=== PATIENT | male | born 1950 | race African-American/Black ===

== ENCOUNTER 2020-05-23 02:51 | Inpatient (IN) | payer MEDICARE, OTHER ==
[~2020-05-23] VITALS: Ht 177.8 cm; Wt 76.2 kg
[2020-05-23] VITALS (20 sets, daily range): BP systolic 93–162; BP diastolic 64–94
[2020-05-23] MEDS ORDERED: dexAMETHasone 10mg/ml Inj IV ONE (03:00)
[2020-05-23] MEDS ORDERED: Omnipaque 350 100ml vial INJ PRN ×2 (03:00→14:30)
[2020-05-23] MEDS ORDERED: cefTRIAXone 1 GM in NS 55 ML IVPB ONE (03:00)
[2020-05-23 03:42] LABS: BASOPHILS % (AUTO) 2.8 % (0.0-2.0); EOSINOPHILS % (AUTO) 4.7 % (0.0-3.0); HEMATOCRIT 44.1 % (42.0-52.0); HEMOGLOBIN 13.6 G/DL (14.2-18.0); LYMPHOCYTES % (AUTO) 34.1 % (20.0-45.0); MEAN CORPUSCULAR VOLUME 94 FL (80-99); MONOCYTES % (AUTO) 11.6 % (1.0-10.0); NEUTROPHILS % (AUTO) 46.8 % (45.0-75.0); PLATELET COUNT 134 K/UL (150-450); RED BLOOD COUNT 4.67 M/UL (4.70-6.10); RED CELL DISTRIBUTION WIDTH 14.5 % (11.6-14.8); WHITE BLOOD COUNT 7.1 K/UL (4.8-10.8)
[2020-05-23 03:54] LABS: INR 1.1 (0.9-1.1)
[2020-05-23 03:57] LABS: ANION GAP 8 mmol/L (5-15); BLOOD UREA NITROGEN 13 mg/dL (7-18); CALCIUM 8.9 MG/DL (8.5-10.1); CARBON DIOXIDE 23 MMOL/L (21-32); CHLORIDE 105 MMOL/L (98-107); CREATININE 1.1 MG/DL (0.55-1.30); POTASSIUM 4.6 MMOL/L (3.5-5.1); SODIUM 136 MMOL/L (136-145)
[2020-05-23 04:06] LABS: ALANINE AMINOTRANSFERASE 26 U/L (12-78); ALBUMIN 2.5 G/DL (3.4-5.0); ALBUMIN/GLOBULIN RATIO 0.4 (1.0-2.7); ALKALINE PHOSPHATASE 100 U/L (46-116); ASPARTATE AMINO TRANSFERASE 33 U/L (15-37); BILIRUBIN,TOTAL 0.3 MG/DL (0.2-1.0); PHOSPHORUS 5.7 MG/DL (2.5-4.9)
--- NOTE | 2020-05-23 04:23 | Emergency Room Report ---
History of Present Illness General Chief Complaint: Dyspnea/Respdistress Source: EMS Present Illness HPI 69-year-old -[place] male with past medical history of lung cancer, AFIB on blood thinner, G-tube, hypertension presents by ambulance with respiratory distress. Patient was found at [facility] where he currently resides hypoxic on room air at 70%. EMS placed him on 15 L nonrebreather mask with improvement of SPO2 to 84%. History is limited secondary to patient's clinical status and severe shortness of breath The patient's symptoms were gradual onset, severity was moderate, duration since 1 day. Quality: Short of breath Past medical history: A. fib, CHF, lung cancer Past surgical history: G-tube Smoking: Denies Alcohol use: Denies Drug use: Denies Review of systems: CONST: No fevers or chills, No night sweats PULMONARY: No productive cough, ++ shortness of breath CARDIAC: No chest pain, No palpitations GI: No vomiting, No diarrhea , No melena_or_BRBPR : No dysuria, No hematuria, No discharge NEURO: No new_focal_weakness_or_numbness, No confusion, No vision changes 14 point Review of Systems is otherwise negative except per HPI Physical Exam: GENERAL: Awake_alert_ nontoxic, no acute distress Spo2 70% on RA -abnormal EYES: Extraocular muscles are intact. Conjunctivae clear. Lids without swelling ENT: External nose and ear normal_in_appearance. Oropharynx clear. Head_atrau matic, Moist_oral_mucosa Speaks in clipped sentences NECK: Positive JVD. No meningismus. No thyromegaly. Supple. Trachea midline RESP: Increased respiratory effort. Tachypneic. Symmetric rise. No stridor. Coarse breath sounds bilaterally CARDIAC: Tachycardic and irregular rhytm. No_significant pedal edema. ABDOMEN: Soft. Nondistended. Nontender_No_rebound_or_guarding. Found in soiled diaper MSK: Normal muscle tone, without rigidity. Extremities without asymmetric deformity or swelling. Contractures to all 4 extremities. SKIN: Warm and dry. No visible cyanosis or pallor NEUROLOGIC: Alert, oriented x3 But difficult to understand Psych: Normal mood and affect, normal judgment and insight - COORDINATION OF CARE Case was discussed with: Patient , Patient's Physician Any labs and imaging that were ordered were interpreted as part of the medical decision making: Medical Decision Making/Plan: Differential includes CHF, pulmonary edema, pulmonary embolism, pneumonia, pleural effusions, pneumothorax, among others. On initial evaluation, patient has labored respirations and is hypoxic. He looks hypervolemic on examination. Positive JVD. EKG is A. fib, rate controlled, without any obvious signs of ischemia. CXR shows CM with CHF. No ptx s/p central line. Troponin 0.03. BNP is elevated, consistent with CHF exacerbation. Lactate was initially elevated, however after mild fluids lactate down trended and normalized. Due to critical hypoxemia, patient was placed on BiPAP to help with oxygenation and ventilation. Work of breathing significantly decreased. Patient was diuresed here in the emergency department. Due to borderline hypotension however he could not receive a large amount of Lasix, nitroglycerin, or even Vasotec. CT angio of the thorax was ordered to evaluate for PE given history of A. fib and sedentary lifestyle with rapid hypoxia. Patient is however unable to lay flat due to CHF. Symptoms are less likely to be due to pulmonary embolism, but this will be signed out to the oncoming admission team so that once patient is more euvolemic he may be able to get CT angio. There is no evidence of extreme right heart strain on EKG. Bedside ultrasound of the heart is negative for Elmore sign or septal bowing. The patient appears to be in decompensated CHF in exacerbation and not a suitable candidate for outpatient treatment so will be admitted for inpatient diuresis patient is currently on and further evaluation and treatment. BiPAP with tenuous hemodynamics. Will admit to the ICU I spoke with Dr. Jean Baptiste (Abhilash Spence), and reviewed the patients presentation, workup, results, and treatment. They will admit the patient for further care and evaluation, and assume care of the patient at this time. - CRITICAL CARE TIME - I spent 39 minutes of critical care time. This time excludes any separately billable procedures. Treatments/Evaluations: Emergent and rapid respiratory assessment and management with continuous monitoring. Advanced airway equipment at the ready, while the patient's respiratory symptoms were stabilized. Given the patients presentation with CHF requiring oxygen, there existed the p otential for imminent deterioration in the patient's condition due to respiratory compromise. 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 Maximal sterile barrier technique used. Anesthesia: 1% lidocaine locally Location: Right IJ Device: Multiple lumen Technique: Seldinger technique. Secured with suture. Results: Venous return from all ports with easy saline flush. No complications. Compl : None Guide wire was retrieved and disposed of. ED Procedural Ultrasound by me: Central line placed by me using concurrent ultrasound guidance. Real time image archived in the medical record confirms vascular anatomy. Chest X-ray 1V Interpreted by me: Central line in SVC, Normal soft tissue, No evidence of pneumothorax. Medical Decision Making Diagnostic Impression: Primary Impression: CHF exacerbation Additional Impressions: Hypoxia Lung cancer A-fib Shortness of breath G tube feedings EKG Diagnostic Results Troponin ordered: Yes When was troponin ordered?: May 23, 2020 EKG Time: 03:03 EP Interpretation: Normal Rate: tachycardiac Rhythm: other - A. fib ST Segments: other - A. fib ASA given to the pt in ED: No - No ACS Rhythm Strip Diag. Results Rhythm Strip Time: 04:21 EP Interpretation: yes Rate: 96 Rhythm: NSR, no PVC's, no ectopy Chest X-Ray Diagnostic Results Chest X-Ray Diagnostic Results : PA Scribe Text Chest X-Ray: Views: [ 1 ] view(s) Indication: Shortness of breath Findings: Right IJ central line Impression: Interstitial infiltrate. Left chest pacemaker. Central line in place. No pneumothorax The X-ray(s) were independently viewed and interpreted contemporaneously Electronically signed by me, Sofia Hansen, DO Reevaluation Time: 04:23 Last Vital Signs Date Time Temp Pulse Resp B/P (MAP) Pulse Ox O2 Delivery O2 Flow Rate FiO2 05/23/20 03:33 103 32 94 45 05/23/20 02:48 98.4 113/66 (82) Non-Rebreather 15.0 Status: improved Disposition: ADMITTED INPATIENT Admit Decision Time: 16:00 Condition: Stable Referrals: NON PHYSICIAN (PCP) Sofia Hansen D.O. May 23, 2020 04:23
[2020-05-23] MEDS ORDERED: traMADol 50mg tab ORAL ONE (05:00)
[2020-05-23] MEDS ORDERED: SPIRONOLACTONE25 MG GT (06:59)
[2020-05-23] MEDS ORDERED: VITAMIN C500 M1 GT (06:59)
[2020-05-23] MEDS ORDERED: SENNA8.6 M2 GT (06:59)
[2020-05-23] MEDS ORDERED: VITAMIN B-1100 MG GT (06:59)
[2020-05-23] MEDS ORDERED: METOPROLOL TAR100 M1 GT (06:59)
[2020-05-23] MEDS ORDERED: NORCO 5-325 TA1 EAC1 GT (06:59)
[2020-05-23] MEDS ORDERED: MULTIVITAMINS1 EAC2 GT (06:59)
[2020-05-23] MEDS ORDERED: XALATAN2.5 ML BOTH EYES (06:59)
[2020-05-23] MEDS ORDERED: TERAZOSIN HCL1 MG GT (06:59)
[2020-05-23] MEDS ORDERED: MILK OF MA400 MG/51 GT (06:59)
[2020-05-23] MEDS ORDERED: ZOFRAN4 M3 GT (06:59)
[2020-05-23] MEDS ORDERED: AMLODIPINE BESY10 MG GT (06:59)
[2020-05-23] MEDS ORDERED: TRUSOPT10 ML BOTH EYES (06:59)
[2020-05-23] MEDS ORDERED: LOSARTAN POTASS50 MG GT (06:59)
[2020-05-23] MEDS ORDERED: ACETAMINOPHEN325 M1 GT (06:59)
[2020-05-23] MEDS ORDERED: ELIQUIS5 MG GT (06:59)
[2020-05-23] MEDS ORDERED: OMEPRAZOLE40 M1 GT (06:59)
[2020-05-23] MEDS ORDERED: DOCUSATE SODIU100 M2 GT (06:59)
[2020-05-23] MEDS ORDERED: PRO-STAT LIQUID30 ML GT (06:59)
[2020-05-23] MEDS ORDERED: Nitroglycerin Patch 0.1mg/hr TDERMAL SCH (09:00)
[2020-05-23] MEDS: Doxycycline Hyclate 100 MG in D5W 110 ML IV SCH ×2 (09:59→20:28)
--- NOTE | 2020-05-23 11:30 | Consultation ---
DATE OF CONSULTATION: 05/23/2020 PULMONARY/ICU CONSULTATION HISTORY OF PRESENT ILLNESS: This is a 69-year-old male with history of lung cancer as well as a fibrillation on a blood thinner. He has a chronic G-tube. He was brought in by paramedics with respiratory distress. The patient is a resident at [facility]. He was found to be hypoxic on room air. He was placed on non-rebreather mask; however, he is now on a BiPAP in ICU. The patient underwent a chest x-ray which showed left-sided pacemaker and evidence of pulmonary edema. The patient was unable to perform a CT angio as he was unable to lie flat. The patient underwent a central line placement by the ER physician. At this time, the patient is seen in the ICU. PAST MEDICAL HISTORY: Notable for atrial fibrillation, CHF, lung cancer. PAST SURGICAL HISTORY: G-tube. CURRENT MEDICATIONS: Include Rocephin, doxycycline, dexamethasone. REVIEW OF SYSTEMS: Not obtainable. PHYSICAL EXAMINATION: GENERAL: Reveals a 69-year-old male. He has a BiPAP in place. VITAL SIGNS: Blood pressure 120/60, heart rate 104, respiratory rate 20, afebrile. CHEST: Diminished breath sounds bilaterally. ABDOMEN: Soft. EXTREMITIES: There is 1+ edema. LABORATORY DATA: Lab testing shows hemoglobin of 13.6, white count 7.1. Lactic acid 2.1, now 1.3. Magnesium 2.7. Coags are negative. ABG pH 7.44, pCO2 30, pO2 51. IMPRESSION: 1. Decompensated congestive heart failure. 2. Permanent pacemaker. 3. Right pleural effusion. 4. History of lung cancer. 5. Hypoxic respiratory failure. DISCUSSION: 1. Agree with diuresis if blood pressure allows. 2. BiPAP to continue. 3. Initial COVID-19 testing is negative. 4. We will need to review old records. 5. We will follow carefully. Charli Akers M.D. DR: Arnold JOB#: [id number] CC:
--- NOTE | 2020-05-23 13:21 | Consultation ---
History of Present Illness General Date patient seen: May 23, 2020 Reason for Hospitalization: Dyspnea/Respdistress Present Illness HPI this is a 69-year-old -[place] male with past medical history of lung cancer, a fib on blood thinner, s/p PEG, hypertension, and others who presents by ambulance from facility with respiratory distress. Patient was found hypoxic on room air at 70%. EMS placed him on 15 L nonrebreather mask with improvement of SPO2 to 84%. History is limited secondary to patient's clinical status and severe shortness of breath The patient's symptoms were gradual onset, severity was moderate, duration since 1 day. on admission noted to have abnormal labs and scrotal edema with breakdown and cellulitis surgery called to evaluate. Allergies: Coded Allergies: No Known Allergies (Unverified , 05/23/20) COVID-19 Screening Contact w/high risk pt: No Experienced COVID-19 symptoms?: Yes Coronavirus symptoms experienc: Shortness of Breath Medication History Scheduled Amino Acids/Protein Hydrolys (Pro-Stat Liquid), 30 ML GT TID, (Reported) Amlodipine Besylate* (Amlodipine Besylate*), 10 MG GT DAILY, (Reported) Apixaban (Eliquis*), 5 MG GT BID, (Reported) Ascorbic Acid* (Vitamin C*), 500 MG GT DAILY, (Reported) Docusate Sodium (Docusate Sodium), 200 MG GT DAILY, (Reported) Dorzolamide Hcl* (Trusopt*), 1 DROP BOTH EYES TID, (Reported) Latanoprost* (Xalatan*), 1 DROP BOTH EYES BEDTIME, (Reported) Losartan Potassium* (Losartan Potassium*), 50 MG GT BID, (Reported) Magnesium Hydroxide* (Milk Of Magnesia*), 30 ML GT DAILY, (Reported) Metoprolol Tartrate* (Metoprolol Tartrate*), 100 MG GT EVERY 12 HOURS, (Reported) Multivitamins* (Multivitamins*), 1 TAB GT DAILY, (Reported) Omeprazole (Omeprazole), 40 MG GT DAILY, (Reported) Sennosides (Senna), 8.6 MG GT DAILY, (Reported) Spironolactone* (Aldactone*), 25 MG GT DAILY, (Reported) Terazosin Hcl* (Hytrin*), 1 MG GT BEDTIME, (Reported) Thiamine Hcl* (Vitamin B-1*), 100 MG GT DAILY, (Reported) Scheduled PRN Acetaminophen* (Acetaminophen 325MG Tablet*), 325 MG ORAL Q4H PRN for Mild Pain (Pain Scale 1-3), (Reported) Acetaminophen* (Acetaminophen 325MG Tablet*), 650 MG GT Q4H PRN for Moderate Pain (Pain Scale 4-6), (Reported) Hydrocodone Bit/Acetaminophen 5-325* (Charlemont 5-325 Tablet*), 2 TAB ORAL Q6H PRN for Severe Pain (Pain Scale 7-10), (Reported) Ondansetron* (Zofran*), 4 MG GT Q8HR PRN for Nausea & Vomiting, (Reported) Patient History Limited by: medical condition History Provided By: Medical Record, PMD Healthcare decision maker Resuscitation status Advanced Directive on File Past Medical/Surgical History Past Medical/Surgical History: (1) Cellulitis of scrotum (2) Shortness of breath (3) Lung cancer (4) A-fib (5) CHF exacerbation (6) G tube feedings (7) Hypoxia Review of Systems Review of Symptoms General ROS: no weight loss or fever Psychological ROS: no depression or mood changes, no memory loss Ophthalmic ROS: no visual changes or eye irritation ENT ROS: no nasal congestion, hearing loss, dizziness Allergy and Immunology ROS: no allergic symptoms or urticaria Hematological and Lymphatic ROS: no swollen glands, unusual bleeding or bruising Endocrine ROS: no polyuria, polydipsia, weight changes, temperature intolerance Respiratory ROS: no cough, shortness of breath, or wheezing Cardiovascular ROS: no chest pain or dyspnea on exertion Gastrointestinal ROS: denies abdominal pain, bright red blood in stool. Musculoskeletal ROS: no myalgias or arthralgias Neurological ROS: no TIA or stroke symptoms Dermatological ROS: no new or changing skin lesions, rashes or pruritis Physical Exam Physical Exam General appearance: no distress, appears stated age Head: Normocephalic, without obvious abnormality, atraumatic Eyes: conjunctivae/corneas clear. PERRL, EOM's intact. Fundi benign Throat: Lips, mucosa, and tongue normal. Teeth and gums normal Neck: supple, symmetrical, trachea midline, no adenopathy, thyroid: not enlarged, symmetric, no tenderness/mass/nodules, no carotid bruit and no JVD Lungs: clear to auscultation bilaterally Heart: regular rate and rhythm, S1, S2 normal, no murmur, click, rub or gallop Abdomen: soft, non-tender. Bowel sounds normal. No masses, no organomegaly Extremities: extremities normal, atraumatic, no cyanosis or edema Pulses: 2+ and symmetric Skin: Skin see below Neurologic: Grossly normal Last 24 Hour Vital Signs Date Time Temp Pulse Resp B/P (MAP) Pulse Ox O2 Delivery O2 Flow Rate FiO2 05/23/20 12:00 108 22 138/80 (99) 100 05/23/20 12:00 Bi-pap 100.0 05/23/20 11:00 106 22 133/66 (88) 100 05/23/20 10:00 107 21 124/69 (87) 100 05/23/20 09:59 118/72 05/23/20 09:00 107 26 132/64 (86) 100 05/23/20 08:00 98.5 98 18 133/73 (93) 85 05/23/20 08:00 Bi-pap 100.0 05/23/20 07:40 109 05/23/20 07:00 98 18 133/73 (93) 85 05/23/20 06:00 98 16 93/66 (75) 100 05/23/20 06:00 104 05/23/20 06:00 100 05/23/20 05:45 98.7 99 25 110/65 (80) 100 05/23/20 05:28 98.5 05/23/20 05:15 98.4 99 24 113/66 98 Bi-pap 100 05/23/20 04:37 104 31 95 100 05/23/20 03:33 103 32 94 45 05/23/20 03:30 98.4 99 22 113/66 98 Bi-pap 100 05/23/20 03:30 102 28 Bi-pap 100 05/23/20 02:48 98.4 106 28 113/66 (82) 80 Non-Rebreather 15.0 Intake and Output 05/22/20 05/23/20 19:00 07:00 # Bowel Movements 1 Laboratory Tests Test 05/23/20 03:02 05/23/20 03:21 05/23/20 05:35 Arterial Blood pH 7.445 (7.350-7.450) Arterial Blood Partial Pressure CO2 30.5 mmHg (35.0-45.0) L Arterial Blood Partial Pressure O2 51.8 mmHg (75.0-100.0) L Arterial Blood HCO3 20.5 mmol/L (22.0-26.0) L Arterial Blood Oxygen Saturation 85.5 % (95-100) *L Arterial Blood Base Excess -2.6 (-2-2) L Alton Test Positive White Blood Count 7.1 K/UL (4.8-10.8) Red Blood Count 4.67 M/UL (4.70-6.10) L Hemoglobin 13.6 G/DL (14.2-18.0) L Hematocrit 44.1 % (42.0-52.0) Mean Corpuscular Volume 94 FL (80-99) Mean Corpuscular Hemoglobin 29.1 PG (27.0-31.0) Mean Corpuscular Hemoglobin Concent 30.9 G/DL (32.0-36.0) L Red Cell Distribution Width 14.5 % (11.6-14.8) Platelet Count 134 K/UL (150-450) L Mean Platelet Volume 10.4 FL (6.5-10.1) H Neutrophils (%) (Auto) 46.8 % (45.0-75.0) Lymphocytes (%) (Auto) 34.1 % (20.0-45.0) Monocytes (%) (Auto) 11.6 % (1.0-10.0) H Eosinophils (%) (Auto) 4.7 % (0.0-3.0) H Basophils (%) (Auto) 2.8 % (0.0-2.0) H Prothrombin Time 12.0 SEC (9.30-11.50) H Prothromb Time International Ratio 1.1 (0.9-1.1) Activated Partial Thromboplast Time 29 SEC (23-33) Sodium Level 136 MMOL/L (136-145) Potassium Level 4.6 MMOL/L (3.5-5.1) Chloride Level 105 MMOL/L (98-107) Carbon Dioxide Level 23 MMOL/L (21-32) Anion Gap 8 mmol/L (5-15) Blood Urea Nitrogen 13 mg/dL (7-18) Creatinine 1.1 MG/DL (0.55-1.30) Estimat Glomerular Filtration Rate > 60 mL/min (>60) Glucose Level 127 MG/DL (74-106) H Lactic Acid Level 2.10 mmol/L (0.4-2.0) H 1.30 mmol/L (0.66-2.22) Calcium Level 8.9 MG/DL (8.5-10.1) Phosphorus Level 5.7 MG/DL (2.5-4.9) H Magnesium Level 2.7 MG/DL (1.8-2.4) H Total Bilirubin 0.3 MG/DL (0.2-1.0) Aspartate Amino Transf (AST/SGOT) 33 U/L (15-37) Alanine Aminotransferase (ALT/SGPT) 26 U/L (12-78) Alkaline Phosphatase 100 U/L (46-116) Troponin I 0.033 ng/mL (0.000-0.056) Pro-B-Type Natriuretic Peptide 2070 pg/mL (0-125) H Total Protein 8.1 G/DL (6.4-8.2) Albumin 2.5 G/DL (3.4-5.0) L Globulin 5.6 g/dL Albumin/Globulin Ratio 0.4 (1.0-2.7) L Lipase 64 U/L (73-393) L Microbiology Date/Time Source Procedure Growth Status 05/23/20 03:21 Nasopharynx SARS-CoV-2 RdRp Gene Assay - Final Complete Height (Feet): 5 Height (Inches): 10.00 Weight (Pounds): 168 Medications Current Medications Medications (Trade) Dose Ordered Sig/Joan Route PRN Reason Start Time Stop Time Status Last Admin Dose Admin Ceftriaxone Sodium 1 gm/ Dextrose 55 ml @ 110 mls/hr Q24H IVPB 05/24/20 03:00 05/31/20 02:59 Chlorhexidine Gluconate (Zohreh-Hex 2%) 1 applic DAILY@2000 TOPIC 05/23/20 20:00 08/21/20 19:59 Dextrose (Dextrose 50%) 25 ml Q30M PRN IV Hypoglycemia 05/23/20 05:15 08/21/20 05:14 Dextrose (Dextrose 50%) 50 ml Q30M PRN IV Hypoglycemia 05/23/20 05:15 08/21/20 05:14 Doxycycline Hyclate 100 mg/ Dextrose 110 ml @ 110 mls/hr Q12HR IV 05/23/20 09:00 05/30/20 08:59 05/23/20 09:59 Furosemide (Lasix) 40 mg EVERY 12 HOURS IV 05/23/20 11:00 06/22/20 10:59 05/23/20 11:45 Heparin Sodium (Porcine) (Heparin 5000 units/ml) 5,000 units EVERY 12 HOURS SUBQ 05/23/20 21:00 07/07/20 20:59 Iohexol (Omnipaque 350 100ml) 100 ml NOW PRN INJ Radiology Procedure 05/23/20 03:00 05/25/20 02:59 Nitroglycerin (Ntg) 1 patch Q24H TDERMAL 05/23/20 09:00 06/22/20 08:59 05/23/20 09:59 Assessment/Plan Problem List: (1) Shortness of breath ICD Codes: R06.02 - Shortness of breath SNOMED: 708938902, 511750939, 040798007 (2) Lung cancer ICD Codes: C34.90 - Malignant neoplasm of unspecified part of unspecified bronchus or lung SNOMED: 824865446, 569809028, 731736413 (3) A-fib ICD Codes: I48.91 - Unspecified atrial fibrillation SNOMED: 26757878, 733319846, 115012313 (4) CHF exacerbation ICD Codes: I50.9 - Heart failure, unspecified SNOMED: 481377169, 05927566601628, 790946171 (5) G tube feedings ICD Codes: Z93.1 - Gastrostomy status SNOMED: 151028837, 580971593, 504540630 (6) Cellulitis of scrotum Assessment & Plan: Patient identified admission to have scrotal cellulitis with fluid-filled large scrotum in the posterior aspect of the perineum there is a opening proximally 1 cm raised 1 cm with cellulitis and induration around it no fluctuance no abscess. Wound washed. Swab Betadine. Dressings applied. IV antibiotics. Will monitor with physical examination to ensure not worsening. May form phlegmon into abscess requiring I&D but currently no fluid collection requiring I&D. Will monitor to ensure healing. Thank you for letting present patient's care will follow with recommendations ICD Codes: N49.2 - Inflammatory disorders of scrotum SNOMED: 07027625 (7) Hypoxia ICD Codes: R09.02 - Hypoxemia SNOMED: 900285998, 876113592, 404838838 Roman Pickens May 23, 2020 13:21
--- NOTE | 2020-05-23 13:58 | History and Physical ---
History of Present Illness General Reason for Hospitalization: Dyspnea/Respdistress Present Illness HPI Mr. Ortega is a 69-year-old male with past medical history of lung cancer, A. fib, G-tube dependent, hypertension who was brought in by ambulance for respiratory distress. Entire history taken from chart review and discussion with nurses as patient is currently on BiPAP unable to answer any questions. Patient was found at [facility] where he currently resides in to be hypoxic at 70%. He was placed on 15 L nonrebreather mask which improved his hypoxia and brought to the ED for further evaluation. Patient currently on BiPAP and arousable. However unable to answer any questions. No other further history obtainable at this time. Past medical history: A. fib, CHF, lung cancer Past surgical history: G-tube Past surgical history: Unable to obtain due to patient's mental status Past surgical history: Unable to obtain at this time due to patient's mental status Allergies: Coded Allergies: No Known Allergies (Unverified , 05/23/20) COVID-19 Screening Contact w/high risk pt: No Experienced COVID-19 symptoms?: Yes Coronavirus symptoms experienc: Shortness of Breath Medication History Scheduled Amino Acids/Protein Hydrolys (Pro-Stat Liquid), 30 ML GT TID, (Reported) Amlodipine Besylate* (Amlodipine Besylate*), 10 MG GT DAILY, (Reported) Apixaban (Eliquis*), 5 MG GT BID, (Reported) Ascorbic Acid* (Vitamin C*), 500 MG GT DAILY, (Reported) Docusate Sodium (Docusate Sodium), 200 MG GT DAILY, (Reported) Dorzolamide Hcl* (Trusopt*), 1 DROP BOTH EYES TID, (Reported) Latanoprost* (Xalatan*), 1 DROP BOTH EYES BEDTIME, (Reported) Losartan Potassium* (Losartan Potassium*), 50 MG GT BID, (Reported) Magnesium Hydroxide* (Milk Of Magnesia*), 30 ML GT DAILY, (Reported) Metoprolol Tartrate* (Metoprolol Tartrate*), 100 MG GT EVERY 12 HOURS, (Reported) Multivitamins* (Multivitamins*), 1 TAB GT DAILY, (Reported) Omeprazole (Omeprazole), 40 MG GT DAILY, (Reported) Sennosides (Senna), 8.6 MG GT DAILY, (Reported) Spironolactone* (Aldactone*), 25 MG GT DAILY, (Reported) Terazosin Hcl* (Hytrin*), 1 MG GT BEDTIME, (Reported) Thiamine Hcl* (Vitamin B-1*), 100 MG GT DAILY, (Reported) Scheduled PRN Acetaminophen* (Acetaminophen 325MG Tablet*), 325 MG ORAL Q4H PRN for Mild Pain (Pain Scale 1-3), (Reported) Acetaminophen* (Acetaminophen 325MG Tablet*), 650 MG GT Q4H PRN for Moderate Dann n (Pain Scale 4-6), (Reported) Hydrocodone Bit/Acetaminophen 5-325* ([place] 5-325 Tablet*), 2 TAB ORAL Q6H PRN for Severe Pain (Pain Scale 7-10), (Reported) Ondansetron* (Zofran*), 4 MG GT Q8HR PRN for Nausea & Vomiting, (Reported) Patient History Healthcare decision maker Resuscitation status Advanced Directive on File Review of Systems ROS Narrative Unable to obtain review of system as patient is currently on BiPAP, unable to answer or follow any directions. Physical Exam General Appearance: confused, mild distress HEENT: normocephalic, atraumatic Neck: non-tender, supple Respiratory/Chest: crackles/rales, other - On BiPAP Cardiovascular/Chest: normal rate, regularly irregular, no JVD Abdomen: non tender, soft, other - G-tube placed Skin Exam: normal pigmentation, warm/dry Neurologic: porcelain enameling supervisor II-XII grossly normal, alert Musculoskeletal: normal muscle bulk Last 24 Hour Vital Signs Date Time Temp Pulse Resp B/P (MAP) Pulse Ox O2 Delivery O2 Flow Rate FiO2 05/23/20 13:00 119 27 127/69 (88) 100 05/23/20 12:00 108 22 138/80 (99) 100 05/23/20 12:00 109 05/23/20 12:00 Bi-pap 100.0 05/23/20 11:00 106 22 133/66 (88) 100 05/23/20 10:00 107 21 124/69 (87) 100 05/23/20 09:59 118/72 05/23/20 09:00 107 26 132/64 (86) 100 05/23/20 08:00 98.5 98 18 133/73 (93) 85 05/23/20 08:00 Bi-pap 100.0 05/23/20 07:40 109 05/23/20 07:10 113 30 92 Bi-Pap 100 05/23/20 07:10 113 30 92 100 05/23/20 07:00 98 18 133/73 (93) 85 05/23/20 06:00 98 16 93/66 (75) 100 05/23/20 06:00 104 05/23/20 06:00 100 05/23/20 05:45 98.7 99 25 110/65 (80) 100 05/23/20 05:28 98.5 05/23/20 05:15 98.4 99 24 113/66 98 Bi-pap 100 05/23/20 04:37 104 31 95 100 05/23/20 03:33 103 32 94 45 05/23/20 03:30 98.4 99 22 113/66 98 Bi-pap 100 05/23/20 03:30 102 28 Bi-pap 100 05/23/20 02:48 98.4 106 28 113/66 (82) 80 Non-Rebreather 15.0 Intake and Output 05/22/20 05/23/20 19:00 07:00 # Bowel Movements 1 Laboratory Tests Test 05/23/20 03:02 05/23/20 03:21 05/23/20 05:35 Arterial Blood pH 7.445 (7.350-7.450) Arterial Blood Partial Pressure CO2 30.5 mmHg (35.0-45.0) L Arterial Blood Partial Pressure O2 51.8 mmHg (75.0-100.0) L Arterial Blood HCO3 20.5 mmol/L (22.0-26.0) L Arterial Blood Oxygen Saturation 85.5 % (95-100) *L Arterial Blood Base Excess -2.6 (-2-2) L [place] Test Positive White Blood Count 7.1 K/UL (4.8-10.8) Red Blood Count 4.67 M/UL (4.70-6.10) L Hemoglobin 13.6 G/DL (14.2-18.0) L Hematocrit 44.1 % (42.0-52.0) Mean Corpuscular Volume 94 FL (80-99) Mean Corpuscular Hemoglobin 29.1 PG (27.0-31.0) Mean Corpuscular Hemoglobin Concent 30.9 G/DL (32.0-36.0) L Red Cell Distribution Width 14.5 % (11.6-14.8) Platelet Count 134 K/UL (150-450) L Mean Platelet Volume 10.4 FL (6.5-10.1) H Neutrophils (%) (Auto) 46.8 % (45.0-75.0) Lymphocytes (%) (Auto) 34.1 % (20.0-45.0) Monocytes (%) (Auto) 11.6 % (1.0-10.0) H Eosinophils (%) (Auto) 4.7 % (0.0-3.0) H Basophils (%) (Auto) 2.8 % (0.0-2.0) H Prothrombin Time 12.0 SEC (9.30-11.50) H Prothromb Time International Ratio 1.1 (0.9-1.1) Activated Partial Thromboplast Time 29 SEC (23-33) Sodium Level 136 MMOL/L (136-145) Potassium Level 4.6 MMOL/L (3.5-5.1) Chloride Level 105 MMOL/L (98-107) Carbon Dioxide Level 23 MMOL/L (21-32) Anion Gap 8 mmol/L (5-15) Blood Urea Nitrogen 13 mg/dL (7-18) Creatinine 1.1 MG/DL (0.55-1.30) Estimat Glomerular Filtration Rate > 60 mL/min (>60) Glucose Level 127 MG/DL (74-106) H Lactic Acid Level 2.10 mmol/L (0.4-2.0) H 1.30 mmol/L (0.66-2.22) Calcium Level 8.9 MG/DL (8.5-10.1) Phosphorus Level 5.7 MG/DL (2.5-4.9) H Magnesium Level 2.7 MG/DL (1.8-2.4) H Total Bilirubin 0.3 MG/DL (0.2-1.0) Aspartate Amino Transf (AST/SGOT) 33 U/L (15-37) Alanine Aminotransferase (ALT/SGPT) 26 U/L (12-78) Alkaline Phosphatase 100 U/L (46-116) Troponin I 0.033 ng/mL (0.000-0.056) Pro-B-Type Natriuretic Peptide 2070 pg/mL (0-125) H Total Protein 8.1 G/DL (6.4-8.2) Albumin 2.5 G/DL (3.4-5.0) L Globulin 5.6 g/dL Albumin/Globulin Ratio 0.4 (1.0-2.7) L Lipase 64 U/L (73-393) L Microbiology Date/Time Source Procedure Growth Status 05/23/20 03:21 Nasopharynx SARS-CoV-2 RdRp Gene Assay - Final Complete Height (Feet): 5 Height (Inches): 10.00 Weight (Pounds): 168 Medications Current Medications Medications (Trade) Dose Ordered Sig/Joan Route PRN Reason Start Time Stop Time Status Last Admin Dose Admin Ceftriaxone Sodium 1 gm/ Dextrose 55 ml @ 110 mls/hr Q24H IVPB 05/24/20 03:00 05/31/20 02:59 Chlorhexidine Gluconate (Zohreh-Hex 2%) 1 applic DAILY@2000 TOPIC 05/23/20 20:00 08/21/20 19:59 Dextrose (Dextrose 50%) 25 ml Q30M PRN IV Hypoglycemia 05/23/20 05:15 08/21/20 05:14 Dextrose (Dextrose 50%) 50 ml Q30M PRN IV Hypoglycemia 05/23/20 05:15 08/21/20 05:14 Doxycycline Hyclate 100 mg/ Dextrose 110 ml @ 110 mls/hr Q12HR IV 05/23/20 09:00 05/30/20 08:59 05/23/20 09:59 Furosemide (Lasix) 40 mg EVERY 12 HOURS IV 05/23/20 11:00 06/22/20 10:59 05/23/20 11:45 Heparin Sodium (Porcine) (Heparin 5000 units/ml) 5,000 units EVERY 12 HOURS SUBQ 05/23/20 21:00 07/07/20 20:59 Iohexol (Omnipaque 350 100ml) 100 ml NOW PRN INJ Radiology Procedure 05/23/20 03:00 05/25/20 02:59 Nitroglycerin (Ntg) 1 patch Q24H TDERMAL 05/23/20 09:00 06/22/20 08:59 05/23/20 09:59 Assessment/Plan Assessment/Plan: Mr. Corpening is a 69-year-old male past medical history of lung cancer, G-tube dependence, A. fib, hypertension who presents for respiratory failure. A: #Acute hypoxic respiratory failure status post BiPAP #Acute encephalopathy likely secondary to hypoxia #Atrial fibrillation with rapid ventricular response on blood thinner #Acute on ?chronic decompensated heart failure #History of lung cancer #Essential hypertension #G-tube dependent P: Currently on BiPAP, monitor mostly respiratory failure and intubation Systolic blood pressure holding for now Troponin negative EKG: A. fib with rapid ventricular response, no ST changes Follow-up echocardiography Awaiting chest x-ray, BNP elevated Continue Lasix 40 mg IV twice daily will defer beta-jose de jesus, JUANITA ARB's to cardiology We will continue home Eliquis 5 mg twice daily We will get chest CT rule out PE Consult Dr. Akers, pulmonology, recs appreciated Consult Dr. Zamudio, cardiology, recs appreciated CM CODE STATUS: Full GI: Home omeprazole Diet: G-tube feeds DVT prophylaxis: Eliquis Dispo: Pending stabilization of respiratory failure Time spent on this encounter was 75 minutes which included 45 minutes of counseling and care coordination. I discussed with the nurse at bedside. Time of note may not reflect time patient was seen. Gabino Alexander D.O May 23, 2020 13:58
[2020-05-23] MEDS: Eliquis 5mg tablet GT SCH (17:47)
[2020-05-23] MEDS: Dyna-Hex 2% Top Sol 2oz TOPIC SCH (20:28)
[2020-05-23] MEDS ORDERED: dilTIAZem HCl 25mg/5ml Inj IVP SCH (20:51)
[2020-05-23] MEDS ORDERED: Heparin 5000 units/ml inj SUBQ SCH (21:00)
--- NOTE | 2020-05-23 21:06 | Cardiology Progress Note ---
Assessment/Plan Assessment/Plan [id number] Objective Last 24 Hour Vital Signs Date Time Temp Pulse Resp B/P (MAP) Pulse Ox O2 Delivery O2 Flow Rate FiO2 05/23/20 20:55 153 121/77 05/23/20 20:36 80 05/23/20 20:35 125 32 100 90 05/23/20 20:00 Bi-pap 100.0 05/23/20 19:30 90 05/23/20 19:17 100 05/23/20 19:16 134 36 98 80 05/23/20 19:00 133 25 133/76 (95) 100 05/23/20 18:00 144 27 162/94 (116) 93 05/23/20 17:00 118 36 98 80 05/23/20 17:00 119 25 135/81 (99) 100 05/23/20 16:07 Bi-pap 100.0 05/23/20 16:00 113 25 134/87 (103) 100 05/23/20 15:37 118 05/23/20 15:00 114 19 130/79 (96) 100 05/23/20 14:55 117 30 100 100 05/23/20 14:00 98.6 118 26 157/76 (103) 100 05/23/20 13:00 114 32 100 100 05/23/20 13:00 119 27 127/69 (88) 100 05/23/20 12:00 108 22 138/80 (99) 100 05/23/20 12:00 109 05/23/20 12:00 Bi-pap 100.0 05/23/20 11:00 106 22 133/66 (88) 100 05/23/20 10:49 110 32 100 100 05/23/20 10:00 107 21 124/69 (87) 100 05/23/20 09:59 118/72 05/23/20 09:00 107 26 132/64 (86) 100 05/23/20 08:00 98.5 98 18 133/73 (93) 85 05/23/20 08:00 Bi-pap 100.0 05/23/20 07:40 109 05/23/20 07:10 113 30 92 Bi-Pap 100 05/23/20 07:10 113 30 92 100 05/23/20 07:00 98 18 133/73 (93) 85 05/23/20 06:00 98 16 93/66 (75) 100 05/23/20 06:00 104 05/23/20 06:00 100 05/23/20 05:45 98.7 99 25 110/65 (80) 100 05/23/20 05:28 98.5 05/23/20 05:15 98.4 99 24 113/66 98 Bi-pap 100 05/23/20 04:37 104 31 95 100 05/23/20 03:33 103 32 94 45 05/23/20 03:30 98.4 99 22 113/66 98 Bi-pap 100 05/23/20 03:30 102 28 Bi-pap 100 05/23/20 02:48 98.4 106 28 113/66 (82) 80 Non-Rebreather 15.0 Intake and Output 05/22/20 05/23/20 19:00 07:00 # Bowel Movements 1 Laboratory Tests Test 05/23/20 03:02 05/23/20 03:21 05/23/20 05:35 05/23/20 14:19 Arterial Blood pH 7.445 (7.350-7.450) Arterial Blood Partial Pressure CO2 30.5 mmHg (35.0-45.0) L Arterial Blood Partial Pressure O2 51.8 mmHg (75.0-100.0) L Arterial Blood HCO3 20.5 mmol/L (22.0-26.0) L Arterial Blood Oxygen Saturation 85.5 % (95-100) *L Arterial Blood Base Excess -2.6 (-2-2) L [place] Test Positive White Blood Count 7.1 K/UL (4.8-10.8) Red Blood Count 4.67 M/UL (4.70-6.10) L Hemoglobin 13.6 G/DL (14.2-18.0) L Hematocrit 44.1 % (42.0-52.0) Mean Corpuscular Volume 94 FL (80-99) Mean Corpuscular Hemoglobin 29.1 PG (27.0-31.0) Mean Corpuscular Hemoglobin Concent 30.9 G/DL (32.0-36.0) L Red Cell Distribution Width 14.5 % (11.6-14.8) Platelet Count 134 K/UL (150-450) L Mean Platelet Volume 10.4 FL (6.5-10.1) H Neutrophils (%) (Auto) 46.8 % (45.0-75.0) Lymphocytes (%) (Auto) 34.1 % (20.0-45.0) Monocytes (%) (Auto) 11.6 % (1.0-10.0) H Eosinophils (%) (Auto) 4.7 % (0.0-3.0) H Basophils (%) (Auto) 2.8 % (0.0-2.0) H Prothrombin Time 12.0 SEC (9.30-11.50) H Prothromb Time International Ratio 1.1 (0.9-1.1) Activated Partial Thromboplast Time 29 SEC (23-33) Sodium Level 136 MMOL/L (136-145) Potassium Level 4.6 MMOL/L (3.5-5.1) Chloride Level 105 MMOL/L (98-107) Carbon Dioxide Level 23 MMOL/L (21-32) Anion Gap 8 mmol/L (5-15) Blood Urea Nitrogen 13 mg/dL (7-18) Creatinine 1.1 MG/DL (0.55-1.30) Estimat Glomerular Filtration Rate > 60 mL/min (>60) Glucose Level 127 MG/DL (74-106) H Lactic Acid Level 2.10 mmol/L (0.4-2.0) H 1.30 mmol/L (0.66-2.22) Calcium Level 8.9 MG/DL (8.5-10.1) Phosphorus Level 5.7 MG/DL (2.5-4.9) H Magnesium Level 2.7 MG/DL (1.8-2.4) H Total Bilirubin 0.3 MG/DL (0.2-1.0) Aspartate Amino Transf (AST/SGOT) 33 U/L (15-37) Alanine Aminotransferase (ALT/SGPT) 26 U/L (12-78) Alkaline Phosphatase 100 U/L (46-116) Troponin I 0.033 ng/mL (0.000-0.056) Pro-B-Type Natriuretic Peptide 2070 pg/mL (0-125) H Total Protein 8.1 G/DL (6.4-8.2) Albumin 2.5 G/DL (3.4-5.0) L Globulin 5.6 g/dL Albumin/Globulin Ratio 0.4 (1.0-2.7) L Lipase 64 U/L (73-393) L POC Whole Blood Glucose Pending Microbiology Date/Time Source Procedure Growth Status 05/23/20 03:21 Nasopharynx SARS-CoV-2 RdRp Gene Assay - Final Complete Carrillo Zamudio MD May 23, 2020 21:06
[2020-05-23] MEDS ORDERED: Metoprolol Tartrate 5mg/5ml Inj IVP SCH (21:09)
[2020-05-23] MEDS: Metoprolol Tartrate 50mg tab GT SCH (21:16)
[2020-05-23] MEDS: oxyCODONE 5mg IR tab GT PRN (21:59)
[2020-05-24] VITALS (29 sets, daily range): BP systolic 89–146; BP diastolic 56–102
--- NOTE | 2020-05-24 00:15 | Consultation ---
DATE OF CONSULTATION: 05/23/2020 CONSULTING PHYSICIAN: Carrillo Zamudio M.D. REFERRING PHYSICIAN: Dr. Alexander. REASON FOR REFERRAL: Atrial fibrillation. HISTORY OF PRESENT ILLNESS: This is an elderly male, who is a resident of convalescent facility. The patient apparently was transferred to the acute care hospital at [facility] because of hypoxemia. He is on a BiPAP machine at the present time, very difficult to understand him and he was apparently hypoxic at the facility with room air saturation of 70%, 15 L of nasal cannula provided by the emergency medical services and the saturation put to 84%. The patient was brought to the emergency room here at [place], was started on BiPAP treatment and initially was sedated and later on transferred to the intensive care unit. He has a history of atrial fibrillation. Once he woke up, he became more agitated. His heart rate has been going up. He does have shortness of breath. He does not seem to have chest pain at this time. He states he had a heart attack when he was a young boy, so the information that he is providing is really questionable for accuracy. Records from the convalescent facility indicate this. PAST MEDICAL HISTORY: Positive for metabolic encephalopathy, gastroesophageal reflux disease with esophagitis, history of permanent pacemaker implantation, glaucoma, osteoporosis, chronic obstructive pulmonary disease, respiratory failure previously, coronary artery disease details unknown, chronic atrial fibrillation, malignant neoplasm of the lower lobe, right bronchus, osteoporosis, muscle wasting syndrome, protein calorie malnutrition, contractures of the left hand, right hand, right knee, and left knee, gastrostomy tube placement, systemic hypertension, prostatic hypertrophy, and oropharyngeal dysphagia. The patient's pacemaker is [employer], model number K173, rate 60 to 120, pacemaker implanted on 03/12/2014. [employer] Teaching Gr[employer] [address] [employer] [address] Mcadams. MEDICATIONS: Amlodipine 10 mg daily, Colace, glaucoma eye drops, Eliquis 5 mg 2 times daily, hydrocodone, losartan 50 mg daily, metoprolol 100 mg 2 times daily, milk of magnesium, multivitamins, omeprazole, spironolactone 25 mg daily, terazosin, Tylenol, vitamin B12, vitamin C, and Zofran. REVIEW OF SYSTEMS: Unable to obtain. PHYSICAL EXAMINATION: GENERAL: Shows to be elderly gentleman, somewhat agitated and tried to communicate, on a BiPAP machine. VITAL SIGNS: His blood pressure ranged between 120s to 150s. Heart rates in the 130s to 160s. Saturation 100% on FiO2. LUNGS: Crackles noted bilaterally and breath sounds noted delivered by BiPAP. CARDIAC: Irregularly irregular. Tachycardic. No heaves or thrills noted. ABDOMEN: Soft and nontender. Positive bowel sounds. EXTREMITY: Contracted lower extremities. LABORATORY VALUES: An echocardiogram performed was limited study. The patient on BiPAP requested that the staff discontinue performing the echo, but limited views are available. Ejection fraction is felt to be grossly normal. No significant valvular regurgitation has been noted. The patient's telemetry shows atrial fibrillation, ventricular response has been relatively well controlled until just recently. There is an EKG in the chart from earlier today that shows atrial fibrillation, ventricular response in the 90s, premature ventricular complexes and/or aberrant conduction is noted. The blood test, white count 7.1, hemoglobin 13.6, and platelet count of 134,000. pH is 7.44, pCO2 30, pO2 551, bicarb of 20 with oxygen saturation 85.5%, and lactic acid of 2.1 initially, subsequently 1.3. Troponin 0.03. Magnesium 2.7. ProBNP of 2070. INR 1.1 and PTT of 29. There has been a chest x-ray performed, although I am not able to find the report at this time. The patient's chest x-ray was reviewed personally by myself. There is no report of the chest x-ray by the radiologist. Certainly some rotation of the patient is the fact that lung appears to be clear. There is a pacemaker in place. Cardiac silhouette appears to be small, may be an infiltrate on the right side. ASSESSMENT: 1. Tachycardia. 2. Atrial fibrillation, rapid ventricular response with history of permanent atrial fibrillation. 3. History of lung cancer on the right side. 4. Hypoxemia. 5. Reported history of coronary artery disease. 6. History of pacemaker implantation. 7. History of glaucoma. 8. History of gastroesophageal reflux disease. 9. Decubitus ulcers. 10. History of hypertension. 11. History of benign prostatic hypertrophy. PLAN: Clinical follow up cardiology, in addition IV diltiazem will be initiated. The patient will be monitored closely. Anticoagulation with Eliquis will be continued. I am not sure if the patient actually has congestive heart failure or whether this is another cause of his hypoxemia such as aspiration pneumonia or even pulmonary embolism in the setting of lung cancer, although anticoagulation makes that less likely. Dr. Akers seen the patient in pulmonary consultation. The patient does not require any pressors at the present time. BiPAP therapy will be continued. Cardiac enzymes will be repeated. EKG will be repeated in the morning. Venous duplex study of the lower extremities will be performed or ordered. The patient has received some empiric and diuretic therapy. I am not sure if that will be able to be continued, which is his blood pressure, but the intravenous diltiazem is ordered. The patient may require diltiazem drip. Beta-blockers may be necessary to treat his tachycardia as well. Agitation to be addressed with sedatives as necessary and not clear to me if this is purely related to failure. I suspect there may be other etiologies for the hypoxemia as well as venous duplex of lower extremities will be ordered. Anticoagulation with Eliquis will be continued in the interm. Further recommendation depending on the results of the repeat testing. Carrillo Zamudio M.D. DR: CALIXTO JOB#: [id number] CC:
[2020-05-24] MEDS: oxyCODONE 5mg IR tab GT PRN ×4 (02:18→20:37)
[2020-05-24] MEDS ORDERED: cefTRIAXone 1 GM in D5W 55 ML IVPB SCH (03:00)
[2020-05-24 05:32] LABS: BASOPHILS % (AUTO) 1.4 % (0.0-2.0); HEMATOCRIT 38.9 % (42.0-52.0); HEMOGLOBIN 12.1 G/DL (14.2-18.0); LYMPHOCYTES % (AUTO) 10.8 % (20.0-45.0); MEAN CORPUSCULAR VOLUME 93 FL (80-99); MONOCYTES % (AUTO) 12.3 % (1.0-10.0); NEUTROPHILS % (AUTO) 75.5 % (45.0-75.0); PLATELET COUNT 328 K/UL (150-450); RED BLOOD COUNT 4.19 M/UL (4.70-6.10); RED CELL DISTRIBUTION WIDTH 13.7 % (11.6-14.8); WHITE BLOOD COUNT 10.6 K/UL (4.8-10.8)
[2020-05-24 05:54] LABS: ALANINE AMINOTRANSFERASE 26 U/L (12-78); ALBUMIN 2.7 G/DL (3.4-5.0); ALKALINE PHOSPHATASE 85 U/L (46-116); ANION GAP 9 mmol/L (5-15); ASPARTATE AMINO TRANSFERASE 27 U/L (15-37); BILIRUBIN,DIRECT 0.2 MG/DL (0.0-0.3); BILIRUBIN,TOTAL 0.4 MG/DL (0.2-1.0); BLOOD UREA NITROGEN 16 mg/dL (7-18); CALCIUM 8.6 MG/DL (8.5-10.1); CARBON DIOXIDE 28 MMOL/L (21-32); CHLORIDE 103 MMOL/L (98-107); CREATININE 1.2 MG/DL (0.55-1.30); PHOSPHORUS 5.3 MG/DL (2.5-4.9); POTASSIUM 4.5 MMOL/L (3.5-5.1); SODIUM 140 MMOL/L (136-145)
[2020-05-24] MEDS: Doxycycline Hyclate 100 MG in D5W 110 ML IV SCH (08:50)
[2020-05-24] MEDS: Metoprolol Tartrate 50mg tab GT SCH ×2 (08:51→20:37)
[2020-05-24] MEDS: Eliquis 5mg tablet GT SCH ×2 (08:51→18:25)
[2020-05-24] MEDS ORDERED: Tubing IV Secondary IV ONE (09:35)
[2020-05-24] MEDS ORDERED: NS 275ml ONE (09:35)
--- NOTE | 2020-05-24 11:35 | General Progress Note ---
Subjective ROS Limited/Unobtainable: Yes - Unable to give a good full review of system as patient is on BiPAP, not able to fully respond to questions Allergies: Coded Allergies: No Known Allergies (Unverified , 05/23/20) Subjective No acute overnight events. Patient still on BiPAP. In no respiratory distress. Tachycardia has improved to the low 100 today. Blood pressure standing in the 120s. Objective Last 24 Hour Vital Signs Date Time Temp Pulse Resp B/P (MAP) Pulse Ox O2 Delivery O2 Flow Rate FiO2 05/24/20 11:00 91 30 100 90 05/24/20 10:00 92 20 125/76 (92) 100 05/24/20 09:20 89 30 100 90 05/24/20 09:00 103 24 109/87 (94) 100 05/24/20 08:51 98 141/58 05/24/20 08:00 Bi-pap 100.0 05/24/20 08:00 98.6 102 16 123/74 (90) 100 05/24/20 07:45 106 05/24/20 07:20 119 30 98 100 05/24/20 07:00 113 24 139/92 (108) 86 05/24/20 06:40 100 05/24/20 06:00 112 20 122/80 (94) 100 05/24/20 06:00 100 05/24/20 05:11 87 35 100 90 05/24/20 05:00 106 22 129/68 (88) 100 05/24/20 04:00 Bi-pap 100.0 05/24/20 04:00 99.9 95 24 132/80 (97) 97 05/24/20 03:19 110 31 100 80 05/24/20 03:19 90 05/24/20 03:02 101 05/24/20 03:00 100 23 104/77 (86) 99 05/24/20 02:00 92 16 115/98 (104) 100 05/24/20 01:17 93 33 100 80 05/24/20 01:00 92 23 117/63 (81) 100 05/24/20 00:00 Bi-pap 100.0 05/24/20 00:00 98.6 94 25 114/56 (75) 100 05/23/20 23:14 88 05/23/20 23:00 88 22 113/74 (87) 100 05/23/20 22:57 87 32 100 80 05/23/20 22:00 87 28 138/78 (98) 94 05/23/20 21:17 140 126/74 05/23/20 21:16 140 126/74 05/23/20 21:00 139 29 104/72 (83) 100 05/23/20 20:55 153 121/77 05/23/20 20:36 80 05/23/20 20:35 125 32 100 90 05/23/20 20:00 Bi-pap 100.0 05/23/20 20:00 97.9 133 24 133/90 (104) 100 05/23/20 19:30 90 05/23/20 19:17 144 05/23/20 19:17 100 05/23/20 19:16 134 36 98 80 05/23/20 19:00 133 25 133/76 (95) 100 05/23/20 18:00 144 27 162/94 (116) 93 05/23/20 17:00 118 36 98 80 05/23/20 17:00 119 25 135/81 (99) 100 05/23/20 16:07 Bi-pap 100.0 05/23/20 16:00 113 25 134/87 (103) 100 05/23/20 15:37 118 05/23/20 15:00 114 19 130/79 (96) 100 05/23/20 14:55 117 30 100 100 05/23/20 14:00 98.6 118 26 157/76 (103) 100 05/23/20 13:00 114 32 100 100 05/23/20 13:00 119 27 127/69 (88) 100 05/23/20 12:00 108 22 138/80 (99) 100 05/23/20 12:00 109 05/23/20 12:00 Bi-pap 100.0 Intake and Output 05/23/20 05/24/20 19:00 07:00 Intake Total 110 ml 225 ml Output Total 850 ml 990 ml Balance -740 ml -765 ml Intake Free Water 60 ml IV Total 110 ml 165 ml Output Urine Total 850 ml 990 ml # Bowel Movements 3 Laboratory Tests 05/23/20 14:19: POC Whole Blood Glucose [Pending] 05/23/20 21:13: Troponin I 0.049 05/24/20 05:00: Troponin I 0.066H, White Blood Count 10.6, Red Blood Count 4.19L, Hemoglobin 12.1L, Hematocrit 38.9L, Mean Corpuscular Volume 93, Mean Corpuscular Hemoglobin 28.9, Mean Corpuscular Hemoglobin Concent 31.1L, Red Cell Distribution Width 13.7, Platelet Count 328#, Mean Platelet Volume 8.1, Neutrophils (%) (Auto) 75.5H, Lymphocytes (%) (Auto) 10.8L, Monocytes (%) (Auto) 12.3H, Eosinophils (%) (Auto) 0.0, Basophils (%) (Auto) 1.4, Sodium Level 140, Potassium Level 4.5, Chloride Level 103, Carbon Dioxide Level 28, Anion Gap 9, Blood Urea Nitrogen 16, Creatinine 1.2, Estimat Glomerular Filtration Rate > 60, Glucose Level 165H, Calcium Level 8.6, Phosphorus Level 5.3H, Magnesium Level 2.5H, Total Bilirubin 0.4, Direct Bilirubin 0.2, Aspartate Amino Transf (AST/SGOT) 27, Alanine Aminotransferase (ALT/SGPT) 26, Alkaline Phosphatase 85, Pro-B-Type Natriuretic Peptide 2021H, Total Protein 8.2, Albumin 2.7L Height (Feet): 5 Height (Inches): 10.00 Weight (Pounds): 168 General Appearance: alert, mild distress EENT: PERRL/EOMI Neck: non-tender, normal alignment Cardiovascular: regularly irregular, no JVD, tachycardia Respiratory/Chest: lungs clear, normal breath sounds, other - On BiPAP Abdomen: non tender, soft, other - G-tube Genitourinary/Rectal: other - Adorno Extremities: normal range of motion Edema: no edema noted Arm (L), no edema noted Arm (R), no edema noted Leg (L), no edema noted Leg (R), no edema noted Pedal (L), no edema noted Pedal (R), no edema noted Generalized Neurologic: audio visual director II-XII grossly normal, alert Assessment/Plan Assessment/Plan: Mr. Benitez is a 69-year-old male past medical history of lung cancer, G-tube dependence, A. fib, hypertension who presents for respiratory failure. A: #Acute hypoxic respiratory failure status post BiPAP #Acute encephalopathy likely secondary to hypoxia #Atrial fibrillation with rapid ventricular response on blood thinner #Acute on ?chronic decompensated heart failure #History of lung cancer #Essential hypertension #G-tube dependent P: Currently on BiPAP, monitor mostly respiratory failure and intubation Systolic blood pressure stable, no indication for pressor support at this time Keep MAP greater than 65 Preliminary echo report showing normal EF, RSVP 25, and undetermined diastolic STILL awaiting chest x-ray, BNP elevated Follow-up CTA to rule out PE: Etiology of respiratory failure and A. fib unsure if true CHF exacerbation need to rule out intraparenchymal diseases and possible PE Continue Lasix 40 mg IV twice daily Continue metoprolol 25 mg twice daily We will continue home Eliquis 5 mg twice daily Consult Dr. Akers, pulmonology, recs appreciated Consult Dr. Zamudio, cardiology, recs appreciated CM CODE STATUS: Full GI: Home omeprazole Diet: G-tube feeds DVT prophylaxis: Eliquis Dispo: Pending stabilization of respiratory failure Time spent on this encounter was 45 minutes which included 25 minutes of counseling and care coordination. I discussed with the nurse at bedside. Time of note may not reflect time patient was seen. Gabino Alexander D.O May 24, 2020 11:35
--- NOTE | 2020-05-24 11:41 | Pulmonology Progress Note ---
Subjective ROS Limited/Unobtainable: Yes - Unable to give a good full review of system as patient is on BiPAP, not able to fully respond to questions Interval Events: None new reported; looking better Constitutional: Reports: no symptoms HEENT: Repors: no symptoms Respiratory: Reports: no symptoms Cardiovascular: Reports: no symptoms Gastrointestinal/Abdominal: Reports: no symptoms Genitourinary: Reports: no symptoms Neurologic: Reports: no symptoms Allergies: Coded Allergies: No Known Allergies (Unverified , 05/23/20) Objective Last 24 Hour Vital Signs Date Time Temp Pulse Resp B/P (MAP) Pulse Ox O2 Delivery O2 Flow Rate FiO2 05/24/20 11:00 91 30 100 90 05/24/20 10:00 92 20 125/76 (92) 100 05/24/20 09:20 89 30 100 90 05/24/20 09:00 103 24 109/87 (94) 100 05/24/20 08:51 98 141/58 05/24/20 08:00 Bi-pap 100.0 05/24/20 08:00 98.6 102 16 123/74 (90) 100 05/24/20 07:45 106 05/24/20 07:20 119 30 98 100 05/24/20 07:00 113 24 139/92 (108) 86 05/24/20 06:40 100 05/24/20 06:00 112 20 122/80 (94) 100 05/24/20 06:00 100 05/24/20 05:11 87 35 100 90 05/24/20 05:00 106 22 129/68 (88) 100 05/24/20 04:00 Bi-pap 100.0 05/24/20 04:00 99.9 95 24 132/80 (97) 97 05/24/20 03:19 110 31 100 80 05/24/20 03:19 90 05/24/20 03:02 101 05/24/20 03:00 100 23 104/77 (86) 99 05/24/20 02:00 92 16 115/98 (104) 100 05/24/20 01:17 93 33 100 80 05/24/20 01:00 92 23 117/63 (81) 100 05/24/20 00:00 Bi-pap 100.0 05/24/20 00:00 98.6 94 25 114/56 (75) 100 05/23/20 23:14 88 05/23/20 23:00 88 22 113/74 (87) 100 05/23/20 22:57 87 32 100 80 05/23/20 22:00 87 28 138/78 (98) 94 20 21:17 140 126/74 05/23/20 21:16 140 126/74 05/23/20 21:00 139 29 104/72 (83) 100 05/23/20 20:55 153 121/77 05/23/20 20:36 80 05/23/20 20:35 125 32 100 90 05/23/20 20:00 Bi-pap 100.0 05/23/20 20:00 97.9 133 24 133/90 (104) 100 05/23/20 19:30 90 05/23/20 19:17 144 05/23/20 19:17 100 05/23/20 19:16 134 36 98 80 05/23/20 19:00 133 25 133/76 (95) 100 05/23/20 18:00 144 27 162/94 (116) 93 05/23/20 17:00 118 36 98 80 05/23/20 17:00 119 25 135/81 (99) 100 05/23/20 16:07 Bi-pap 100.0 05/23/20 16:00 113 25 134/87 (103) 100 05/23/20 15:37 118 05/23/20 15:00 114 19 130/79 (96) 100 05/23/20 14:55 117 30 100 100 05/23/20 14:00 98.6 118 26 157/76 (103) 100 05/23/20 13:00 114 32 100 100 05/23/20 13:00 119 27 127/69 (88) 100 05/23/20 12:00 108 22 138/80 (99) 100 05/23/20 12:00 109 05/23/20 12:00 Bi-pap 100.0 Intake and Output 05/23/20 05/24/20 19:00 07:00 Intake Total 110 ml 225 ml Output Total 850 ml 990 ml Balance -740 ml -765 ml Intake Free Water 60 ml IV Total 110 ml 165 ml Output Urine Total 850 ml 990 ml # Bowel Movements 3 General Appearance: no acute distress HEENT: normocephalic Respiratory: chest wall non-tender, decreased breath sounds Cardiovascular: normal peripheral pulses, normal rate Abdomen: normal bowel sounds Microbiology Date/Time Source Procedure Growth Status 05/23/20 03:21 Nasopharynx SARS-CoV-2 RdRp Gene Assay - Final Complete 05/23/20 03:20 Blood Blood Culture - Preliminary NO GROWTH AFTER 24 HOURS Resulted 05/23/20 03:05 Blood Blood Culture - Preliminary NO GROWTH AFTER 24 HOURS Resulted Laboratory Tests 05/23/20 14:19: POC Whole Blood Glucose [Pending] 05/23/20 21:13: Troponin I 0.049 05/24/20 05:00: Troponin I 0.066H, White Blood Count 10.6, Red Blood Count 4.19L, Hemoglobin 12.1L, Hematocrit 38.9L, Mean Corpuscular Volume 93, Mean Corpuscular Hemoglobin 28.9, Mean Corpuscular Hemoglobin Concent 31.1L, Red Cell Distribution Width 13.7, Platelet Count 328#, Mean Platelet Volume 8.1, Neutrophils (%) (Auto) 75.5H, Lymphocytes (%) (Auto) 10.8L, Monocytes (%) (Auto) 12.3H, Eosinophils (%) (Auto) 0.0, Basophils (%) (Auto) 1.4, Sodium Level 140, Potassium Level 4.5, Chloride Level 103, Carbon Dioxide Level 28, Anion Gap 9, Blood Urea Nitrogen 16, Creatinine 1.2, Estimat Glomerular Filtration Rate > 60, Glucose Level 165H, Calcium Level 8.6, Phosphorus Level 5.3H, Magnesium Level 2.5H, Total Bilirubin 0.4, Direct Bilirubin 0.2, Aspartate Amino Transf (AST/SGOT) 27, Alanine Aminotransferase (ALT/SGPT) 26, Alkaline Phosphatase 85, Pro-B-Type Natriuretic Peptide 2021H, Total Protein 8.2, Albumin 2.7L Current Medications Medications (Trade) Dose Ordered Sig/Joan Route PRN Reason Start Time Stop Time Status Last Admin Dose Admin Apixaban (Eliquis) 5 mg BID GT 05/23/20 18:00 08/21/20 17:59 05/24/20 08:51 Chlorhexidine Gluconate (Zohreh-Hex 2%) 1 applic DAILY@1999 TOPIC 05/23/20 20:00 08/21/20 19:59 05/23/20 20:28 Dextrose (Dextrose 50%) 25 ml Q30M PRN IV Hypoglycemia 05/23/20 05:15 08/21/20 05:14 Dextrose (Dextrose 50%) 50 ml Q30M PRN IV Hypoglycemia 05/23/20 05:15 08/21/20 05:14 Furosemide (Lasix) 40 mg EVERY 12 HOURS IV 05/23/20 11:00 06/22/20 10:59 05/24/20 08:50 Iohexol (Omnipaque 350 100ml) 100 ml NOW PRN INJ Radiology Procedure 05/23/20 03:00 05/25/20 02:59 Iohexol (Omnipaque 350 100ml) 100 ml NOW PRN INJ Radiology Procedure 05/23/20 14:30 05/25/20 14:29 Metoprolol Tartrate (Lopressor) 50 mg Q12HR GT 05/23/20 21:10 08/21/20 21:09 05/24/20 08:51 Oxycodone HCl (Roxicodone) 5 mg Q4H PRN GT pain 4-10 05/23/20 22:00 05/30/20 21:59 05/24/20 06:12 Assessment/Plan Assessment/Plan IMPRESSION: 1. Decompensated congestive heart failure. 2. Permanent pacemaker. 3. Right pleural effusion. 4. History of lung cancer. 5. Hypoxic respiratory failure. DISCUSSION: 1. Agree with diuresis if blood pressure allows. 2. Will attempt off BiPAP; check ABG 3. Initial COVID-19 testing is negative. 4. I will follow carefully. Kirstie Membreno Omar Syed MD May 24, 2020 11:41
--- NOTE | 2020-05-24 13:52 | Diagnostic Imaging Report ---
Indication:Leg pain and swelling Technique: Grayscale and duplex Doppler imaging of the veins in both lower extremities performed in real time utilizing compression and augmentation. Comparison: None Findings: Duplex Doppler interrogation of the veins in both lower extremity is performed from the common femoral vein to the popliteal vein. Normal venous compressibility demonstrated throughout. No thrombus identified. Waveform analysis shows good respiratory phasicity and augmentation. IMPRESSION: No evidence of deep venous thrombosis involving the lower extremities. This corresponds with the report by the medical technologist generalist.
[2020-05-24] MEDS ORDERED: MULTIVITAMINS1 EAC8 GT (14:18)
--- NOTE | 2020-05-24 16:09 | Cardiology Report ---
APPROVED REPORT EKG Measurement Heart [id number] <Conclusion> Atrial fibrillation Nonspecific ST and T wave abnormality Abnormal ECG
--- NOTE | 2020-05-24 16:29 | Cardiology Report ---
APPROVED REPORT EKG Measurement Heart [id number] <Conclusion> Atrial fibrillation with premature ventricular or aberrantly conducted complexes Nonspecific ST and T wave abnormality Abnormal ECG
--- NOTE | 2020-05-24 16:47 | Surgery Progress Note ---
Surgery Progress Note Subjective Additional Comments improved no n/v states feels better right IJ Stable dressings change no n/v labs improved trop down Objective Last 24 Hour Vital Signs Date Time Temp Pulse Resp B/P (MAP) Pulse Ox O2 Delivery O2 Flow Rate FiO2 05/24/20 16:06 109 05/24/20 16:00 98.4 109 23 134/65 (88) 95 05/24/20 16:00 Bi-pap 100.0 05/24/20 15:00 102 18 138/61 (86) 99 05/24/20 14:00 100 23 127/74 (91) 98 05/24/20 13:00 104 25 129/102 (111) 100 05/24/20 12:00 Bi-pap 100.0 05/24/20 12:00 98.5 105 22 130/70 (90) 88 05/24/20 11:56 111 05/24/20 11:22 92 Non-Rebreather 100 05/24/20 11:00 95 20 146/90 (108) 100 05/24/20 11:00 91 30 100 90 05/24/20 10:00 92 20 125/76 (92) 100 05/24/20 09:20 89 30 100 90 05/24/20 09:00 103 24 109/87 (94) 100 05/24/20 08:51 98 141/58 05/24/20 08:00 Bi-pap 100.0 05/24/20 08:00 98.6 102 16 123/74 (90) 100 05/24/20 07:45 106 05/24/20 07:20 119 30 98 100 05/24/20 07:00 113 24 139/92 (108) 86 05/24/20 06:40 100 05/24/20 06:00 112 20 122/80 (94) 100 05/24/20 06:00 100 05/24/20 05:11 87 35 100 90 05/24/20 05:00 106 22 129/68 (88) 100 05/24/20 04:00 Bi-pap 100.0 05/24/20 04:00 99.9 95 24 132/80 (97) 97 05/24/20 03:19 110 31 100 80 05/24/20 03:19 90 05/24/20 03:02 101 05/24/20 03:00 100 23 104/77 (86) 99 05/24/20 02:00 92 16 115/98 (104) 100 05/24/20 01:17 93 33 100 80 05/24/20 01:00 92 23 117/63 (81) 100 05/24/20 00:00 Bi-pap 100.0 05/24/20 00:00 98.6 94 25 114/56 (75) 100 05/23/20 23:14 88 05/23/20 23:00 88 22 113/74 (87) 100 05/23/20 22:57 87 32 100 80 05/23/20 22:00 87 28 138/78 (98) 94 05/23/20 21:17 140 126/74 05/23/20 21:16 140 126/74 05/23/20 21:00 139 29 104/72 (83) 100 05/23/20 20:55 153 121/77 05/23/20 20:36 80 05/23/20 20:35 125 32 100 90 05/23/20 20:00 Bi-pap 100.0 05/23/20 20:00 97.9 133 24 133/90 (104) 100 05/23/20 19:30 90 05/23/20 19:17 144 05/23/20 19:17 100 05/23/20 19:16 134 36 98 80 05/23/20 19:00 133 25 133/76 (95) 100 05/23/20 18:00 144 27 162/94 (116) 93 05/23/20 17:00 118 36 98 80 05/23/20 17:00 119 25 135/81 (99) 100 I&O Intake and Output 0 05/23/20 05/24/20 19:00 07:00 Intake Total 110 ml 225 ml Output Total 850 ml 990 ml Balance -740 ml -765 ml Intake Free Water 60 ml IV Total 110 ml 165 ml Output Urine Total 850 ml 990 ml # Bowel Movements 3 Dressing: dry Cardiovascular: RSR Respiratory: clear, decreased breath sounds Abdomen: soft, non-tender, present bowel sounds Extremities: no edema, no tenderness, no cyanosis Laboratory Tests Test 05/23/20 21:13 05/24/20 05:00 05/24/20 12:55 05/24/20 14:09 Troponin I 0.049 ng/mL (0.000-0.056) 0.066 ng/mL (0.000-0.056) 0.058 ng/mL (0.000-0.056) White Blood Count 10.6 K/UL (4.8-10.8) Red Blood Count 4.19 M/UL (4.70-6.10) L Hemoglobin 12.1 G/DL (14.2-18.0) L Hematocrit 38.9 % (42.0-52.0) L Mean Corpuscular Volume 93 FL (80-99) Mean Corpuscular Hemoglobin 28.9 PG (27.0-31.0) Mean Corpuscular Hemoglobin Concent 31.1 G/DL (32.0-36.0) L Red Cell Distribution Width 13.7 % (11.6-14.8) Platelet Count 328 K/UL (150-450) # Mean Platelet Volume 8.1 FL (6.5-10.1) Neutrophils (%) (Auto) 75.5 % (45.0-75.0) H Lymphocytes (%) (Auto) 10.8 % (20.0-45.0) L Monocytes (%) (Auto) 12.3 % (1.0-10.0) H Eosinophils (%) (Auto) 0.0 % (0.0-3.0) Basophils (%) (Auto) 1.4 % (0.0-2.0) Sodium Level 140 MMOL/L (136-145) Potassium Level 4.5 MMOL/L (3.5-5.1) Chloride Level 103 MMOL/L (98-107) Carbon Dioxide Level 28 MMOL/L (21-32) Anion Gap 9 mmol/L (5-15) Blood Urea Nitrogen 16 mg/dL (7-18) Creatinine 1.2 MG/DL (0.55-1.30) Estimat Glomerular Filtration Rate > 60 mL/min (>60) Glucose Level 165 MG/DL (74-106) H Calcium Level 8.6 MG/DL (8.5-10.1) Phosphorus Level 5.3 MG/DL (2.5-4.9) H Magnesium Level 2.5 MG/DL (1.8-2.4) H Total Bilirubin 0.4 MG/DL (0.2-1.0) Direct Bilirubin 0.2 MG/DL (0.0-0.3) Aspartate Amino Transf (AST/SGOT) 27 U/L (15-37) Alanine Aminotransferase (ALT/SGPT) 26 U/L (12-78) Alkaline Phosphatase 85 U/L (46-116) Pro-B-Type Natriuretic Peptide 2021 pg/mL (0-125) H Total Protein 8.2 G/DL (6.4-8.2) Albumin 2.7 G/DL (3.4-5.0) L Arterial Blood pH 7.451 (7.350-7.450) Arterial Blood Partial Pressure CO2 34.4 mmHg (35.0-45.0) L Arterial Blood Partial Pressure O2 57.2 mmHg (75.0-100.0) L Arterial Blood HCO3 23.4 mmol/L (22.0-26.0) Arterial Blood Oxygen Saturation 89.6 % (95-100) *L Arterial Blood Base Excess 0 (-2-2) Alton Test Positive Plan Problems: (1) Shortness of breath (2) Lung cancer (3) A-fib (4) CHF exacerbation (5) G tube feedings (6) Cellulitis of scrotum Assessment & Plan: Patient identified admission to have scrotal cellulitis with fluid-filled large scrotum in the posterior aspect of the perineum there is a opening proximally 1 cm raised 1 cm with cellulitis and induration around it no fluctuance no abscess. Wound washed. Swab Betadine. Dressings applied. IV antibiotics. Will monitor with physical examination to ensure not worsening. May form phlegmon into abscess requiring I&D but currently no fluid collection requiring I&D. Will monitor to ensure healing. Thank you for letting present patient's care will follow with recommendations DAILY ESTIMATED NEEDS: Needs based on Pulmonary, Cancer, bedbound 72.6kg 23-28 kcals/kg [id number] total kcals 1-1.5 g protein/kg 73-109 g total protein Fluid per MD, on lasix NUTRITION DIAGNOSIS: Swallowing difficulty r/t dysphagia as evidenced by pt is PEG dep. CURRENT TF: (NPO) ENTERAL NUTRITION RECOMMENDATIONS: As medically able, rec Glucerna 1.5 goal of 50ml/hr x24 hrs to provide 1200ml, 1800 kcal, 99g pro, 911ml free H2O - As medically able, rec carb control (elev BG 127-165), low free fluid formula(elev BNP, on lasix, edematous). - Start Glucerna 1.5 @20ml/hr for 6 hrs, advance as tolerated 10ml/hr q4-6 hrs to goal. - Flush per MD/ pt is on lasix - HOB over 30 degrees ADDITIONAL RECOMMENDATIONS: 1) TF recs above when medically appropriate 2) Rec bed side BG checks; am labs w/ elev BG (127-165). 3) Monitor lytes, need or renal formula (elev phos, elev Mg) 4) W/ lasix, add B-complex 1 daily 5) Maintain calibrated bed scale wts (7) Hypoxia Roman Pickens May 24, 2020 16:46
--- NOTE | 2020-05-24 18:21 | Diagnostic Imaging Report ---
EXAM: XR Chest, 1 View CLINICAL HISTORY: ALOC TECHNIQUE: Frontal view of the chest. COMPARISON: 05/23/2020 FINDINGS: Lungs: Somewhat improved right base airspace opacities. Unchanged low lung volumes with bronchovascular crowding. Unchanged retrocardiac atelectasis without or with consolidation. Pleural space: Unremarkable. No pneumothorax. Heart: Unremarkable. No cardiomegaly. Mediastinum: Unremarkable. Bones/joints: No acute abnormality Tubes, lines and devices: Unchanged right neck vascular catheter with tip in the region of the superior cavoatrial junction. Unchanged left chest pacer. IMPRESSION: 1. Unchanged right neck vascular catheter with tip in the region of the superior cavoatrial junction. 2. Somewhat improved right base airspace opacities. 3. Unchanged low lung volumes with bronchovascular crowding. 4. Unchanged retrocardiac atelectasis without or with consolidation.
--- NOTE | 2020-05-24 20:01 | Diagnostic Imaging Report ---
EXAM: XR Chest, 1 View CLINICAL HISTORY: SOB TECHNIQUE: Frontal view of the chest. COMPARISON: 2 subsequently obtained radiographs obtained the same date at 0934 hrs and 05/24/2020 FINDINGS: Lungs: Right base small consolidation could represent pneumonia. Low lung volumes with bronchovascular crowding. Pleural space: Unremarkable. No pneumothorax. Heart: Unremarkable. No cardiomegaly. Mediastinum: Mediastinal operative findings. Bones/joints: No acute abnormality Tubes, lines and devices: Unchanged right neck vascular catheter with tip in the low SVC. Left chest pacer. Other findings: Please note that 2 subsequent radiographs are available and were obtained prior to presentation of the current exam for dictation. IMPRESSION: 1. Please note that 2 subsequent radiographs are available and were obtained prior to presentation of the current exam for dictation. 2. Right base small consolidation could represent pneumonia. 3. Low lung volumes with bronchovascular crowding. 4. Unchanged right neck vascular catheter with tip in the low SVC.
--- NOTE | 2020-05-24 20:08 | Diagnostic Imaging Report ---
EXAM: XR Chest, 1 View CLINICAL HISTORY: COUGH TECHNIQUE: Frontal view of the chest. COMPARISON: 05/23/2020 at 0424 hrs. And subsequent study. 05/24/2020 FINDINGS: Lungs: Increased right base opacity probably represents some component of atelectasis without or with superimposed consolidation. Low lung volumes with bronchovascular crowding. Unchanged retrocardiac atelectasis without or with consolidation. Pleural space: Unremarkable. No pneumothorax. Heart: Unremarkable. No cardiomegaly. Mediastinum: Unremarkable. Bones/joints: No acute abnormality Tubes, lines and devices: Unchanged right neck vascular catheter with tip in the low SVC. Unchanged left chest pacer and mediastinal operative findings. Other findings: Please see report from chest radiograph dated 05/24/2024. More contemporary information. IMPRESSION: 1. Please see report from chest radiograph dated 05/24/2024. More contemporary information. 2. Unchanged right neck vascular catheter with tip in the low SVC. 3. Increased right base opacity probably represents some component of atelectasis without or with superimposed consolidation. 4. Low lung volumes with bronchovascular crowding. 5. Unchanged retrocardiac atelectasis without or with consolidation.
--- NOTE | 2020-05-24 20:29 | Cardiology Progress Note ---
Assessment/Plan Assessment/Plan 1. Tachycardia. 2. Atrial fibrillation, rapid ventricular response with history of permanent atrial fibrillation. 3. History of lung cancer on the right side. 4. Hypoxemia. 5. Reported history of coronary artery disease. 6. History of pacemaker implantation. 7. History of glaucoma. 8. History of gastroesophageal reflux disease. 9. Decubitus ulcers. 10. History of hypertension. 11. History of benign prostatic hypertrophy. normal lv function hr improved venous duplex neg cxr some improvement on fm now agitated request -pain meds agree with ctpa trop without peak or isreal to be suggestive of acs tle personally reviewed ekg reviewed Subjective Cardiovascular: Denies: chest pain, lightheadedness, palpitations Respiratory: Reports: shortness of breath Gastrointestinal/Abdominal: Denies: abdominal pain Genitourinary: Denies: burning Objective Last 24 Hour Vital Signs Date Time Temp Pulse Resp B/P (MAP) Pulse Ox O2 Delivery O2 Flow Rate FiO2 05/24/20 19:22 100 Non-Rebreather 100 05/24/20 19:00 120 25 124/71 (88) 100 05/24/20 18:00 116 24 128/63 (84) 95 05/24/20 17:00 110 23 116/94 (101) 98 05/24/20 16:06 109 05/24/20 16:00 98.4 109 23 134/65 (88) 95 05/24/20 16:00 Bi-pap 100.0 05/24/20 15:00 102 18 138/61 (86) 99 05/24/20 14:00 100 23 127/74 (91) 98 05/24/20 13:00 104 25 129/102 (111) 100 05/24/20 12:00 Bi-pap 100.0 05/24/20 12:00 98.5 105 22 130/70 (90) 88 05/24/20 11:56 111 05/24/20 11:22 92 Non-Rebreather 100 05/24/20 11:00 95 20 146/90 (108) 100 05/24/20 11:00 91 30 100 90 05/24/20 10:00 92 20 125/76 (92) 100 05/24/20 09:20 89 30 100 90 05/24/20 09:00 103 24 109/87 (94) 100 05/24/20 08:51 98 141/58 05/24/20 08:00 Bi-pap 100.0 05/24/20 08:00 98.6 102 16 123/74 (90) 100 05/24/20 07:45 106 05/24/20 07:20 119 30 98 100 05/24/20 07:00 113 24 139/92 (108) 86 05/24/20 06:40 100 05/24/20 06:00 112 20 122/80 (94) 100 05/24/20 06:00 100 05/24/20 05:11 87 35 100 90 05/24/20 05:00 106 22 129/68 (88) 100 05/24/20 04:00 Bi-pap 100.0 05/24/20 04:00 99.9 95 24 132/80 (97) 97 05/24/20 03:19 110 31 100 80 05/24/20 03:19 90 05/24/20 03:02 101 05/24/20 03:00 100 23 104/77 (86) 99 05/24/20 02:00 92 16 115/98 (104) 100 05/24/20 01:17 93 33 100 80 05/24/20 01:00 92 23 117/63 (81) 100 05/24/20 00:00 Bi-pap 100.0 05/24/20 00:00 98.6 94 25 114/56 (75) 100 05/23/20 23:14 88 05/23/20 23:00 88 22 113/74 (87) 100 05/23/20 22:57 87 32 100 80 05/23/20 22:00 87 28 138/78 (98) 94 05/23/20 21:17 140 126/74 05/23/20 21:16 140 126/74 05/23/20 21:00 139 29 104/72 (83) 100 05/23/20 20:55 153 121/77 05/23/20 20:36 80 05/23/20 20:35 125 32 100 90 General Appearance: no apparent distress, alert Cardiovascular: irregularly irregular Respiratory/Chest: crackles/rales - left base ant Abdomen: normal bowel sounds, non tender, soft Extremities: trace edema Intake and Output 05/23/20 05/24/20 19:00 07:00 Intake Total 110 ml 225 ml Output Total 850 ml 990 ml Balance -740 ml -765 ml Intake Free Water 60 ml IV Total 110 ml 165 ml Output Urine Total 850 ml 990 ml # Bowel Movements 3 Laboratory Tests Test 05/23/20 21:13 05/24/20 05:00 05/24/20 12:55 05/24/20 14:09 Troponin I 0.049 ng/mL (0.000-0.056) 0.066 ng/mL (0.000-0.056) 0.058 ng/mL (0.000-0.056) White Blood Count 10.6 K/UL (4.8-10.8) Red Blood Count 4.19 M/UL (4.70-6.10) L Hemoglobin 12.1 G/DL (14.2-18.0) L Hematocrit 38.9 % (42.0-52.0) L Mean Corpuscular Volume 93 FL (80-99) Mean Corpuscular Hemoglobin 28.9 PG (27.0-31.0) Mean Corpuscular Hemoglobin Concent 31.1 G/DL (32.0-36.0) L Red Cell Distribution Width 13.7 % (11.6-14.8) Platelet Count 328 K/UL (150-450) # Mean Platelet Volume 8.1 FL (6.5-10.1) Neutrophils (%) (Auto) 75.5 % (45.0-75.0) H Lymphocytes (%) (Auto) 10.8 % (20.0-45.0) L Monocytes (%) (Auto) 12.3 % (1.0-10.0) H Eosinophils (%) (Auto) 0.0 % (0.0-3.0) Basophils (%) (Auto) 1.4 % (0.0-2.0) Sodium Level 140 MMOL/L (136-145) Potassium Level 4.5 MMOL/L (3.5-5.1) Chloride Level 103 MMOL/L (98-107) Carbon Dioxide Level 28 MMOL/L (21-32) Anion Gap 9 mmol/L (5-15) Blood Urea Nitrogen 16 mg/dL (7-18) Creatinine 1.2 MG/DL (0.55-1.30) Estimat Glomerular Filtration Rate > 60 mL/min (>60) Glucose Level 165 MG/DL (74-106) H Calcium Level 8.6 MG/DL (8.5-10.1) Phosphorus Level 5.3 MG/DL (2.5-4.9) H Magnesium Level 2.5 MG/DL (1.8-2.4) H Total Bilirubin 0.4 MG/DL (0.2-1.0) Direct Bilirubin 0.2 MG/DL (0.0-0.3) Aspartate Amino Transf (AST/SGOT) 27 U/L (15-37) Alanine Aminotransferase (ALT/SGPT) 26 U/L (12-78) Alkaline Phosphatase 85 U/L (46-116) Pro-B-Type Natriuretic Peptide 2021 pg/mL (0-125) H Total Protein 8.2 G/DL (6.4-8.2) Albumin 2.7 G/DL (3.4-5.0) L Arterial Blood pH 7.451 (7.350-7.450) Arterial Blood Partial Pressure CO2 34.4 mmHg (35.0-45.0) L Arterial Blood Partial Pressure O2 57.2 mmHg (75.0-100.0) L Arterial Blood HCO3 23.4 mmol/L (22.0-26.0) Arterial Blood Oxygen Saturation 89.6 % (95-100) *L Arterial Blood Base Excess 0 (-2-2) Alton Test Positive Microbiology Date/Time Source Procedure Growth Status 05/23/20 03:21 Nasopharynx SARS-CoV-2 RdRp Gene Assay - Final Complete 05/23/20 03:20 Blood Blood Culture - Preliminary NO GROWTH AFTER 24 HOURS Resulted 05/23/20 03:05 Blood Blood Culture - Preliminary NO GROWTH AFTER 24 HOURS Resulted Carrillo Zamudio MD May 24, 2020 20:29
[2020-05-24] MEDS: Dyna-Hex 2% Top Sol 2oz TOPIC SCH (20:37)
[2020-05-25] VITALS (26 sets, daily range): BP systolic 89–136; BP diastolic 38–104
[2020-05-25] MEDS: oxyCODONE 5mg IR tab GT PRN ×2 (02:21→14:05)
[2020-05-25 06:06] LABS: BASOPHILS % (AUTO) 2.7 % (0.0-2.0); HEMOGLOBIN 12.5 G/DL (14.2-18.0); LYMPHOCYTES % (AUTO) 15.1 % (20.0-45.0); MEAN CORPUSCULAR VOLUME 94 FL (80-99); MONOCYTES % (AUTO) 14.8 % (1.0-10.0); NEUTROPHILS % (AUTO) 67.3 % (45.0-75.0); PLATELET COUNT 267 K/UL (150-450); RED BLOOD COUNT 4.36 M/UL (4.70-6.10)
[2020-05-25 06:55] LABS: ANION GAP 8 mmol/L (5-15); BLOOD UREA NITROGEN 18 mg/dL (7-18); CALCIUM 8.8 MG/DL (8.5-10.1); CARBON DIOXIDE 29 MMOL/L (21-32); CHLORIDE 101 MMOL/L (98-107); CREATININE 0.9 MG/DL (0.55-1.30); POTASSIUM 4.1 MMOL/L (3.5-5.1); SODIUM 138 MMOL/L (136-145)
[2020-05-25] MEDS: Eliquis 5mg tablet GT SCH ×2 (08:25→17:08)
[2020-05-25] MEDS: Metoprolol Tartrate 50mg tab GT SCH ×2 (08:25→20:14)
--- NOTE | 2020-05-25 09:14 | Diagnostic Imaging Report ---
EXAM: XR Chest, 1 View CLINICAL HISTORY: ABN CHST TECHNIQUE: Frontal view of the chest. COMPARISON: Chest x-ray 05/24/20 1157 FINDINGS: Lungs: Hypoventilatory lungs. Right lung base atelectasis/airspace disease, slightly improved. Pleural space: Unremarkable. No pneumothorax. Heart: Unremarkable. No cardiomegaly. Mediastinum: Unremarkable. Bones/joints: Unremarkable. Tubes, lines and devices: Cardiac pacemaker. Stable right IJ catheter. IMPRESSION: Hypoventilatory lungs. Right lung base atelectasis/airspace disease, slightly improved.
--- NOTE | 2020-05-25 10:25 | General Progress Note ---
Subjective Constitutional: Denies: no symptoms, chills, diaphoresis, fever, malaise, weakness, other HEENT: Denies: no symptoms, eye pain, blurred vision, tearing, double vision, ear pain, ear discharge, nose pain, nose congestion, throat pain, throat swelling, mouth pain, mouth swelling, other Cardiovascular: Denies: no symptoms, chest pain, edema, irregular heart rate, lightheadedness, palpitations, syncope, other Respiratory: Denies: no symptoms, cough, orthopnea, shortness of breath, SOB with excertion, SOB at rest, sputum, stridor, wheezing, other Gastrointestinal/Abdominal: Denies: no symptoms, abdomen distended, abdominal pain, black stools, tarry stools, blood in stool, constipated, diarrhea, difficulty swallowing, nausea, poor appetite, poor fluid intake, rectal bleeding, vomiting, other Genitourinary: Denies: no symptoms, burning, discharge, frequency, flank pain, hematuria, incontinence, pain, urgency, other Neurologic/Psychiatric: Denies: no symptoms, anxiety, depressed, emotional problems, headache, numbness, paresthesia, pre-existing deficit, seizure, tingling, tremors, weakness, other Endocrine: Denies: no symptoms, excessive sweating, flushing, intolerance to cold, intolerance to heat, increased hunger, increased thirst, increased urine, unexplained weight gain, unexplained weight loss, other Hematologic/Lymphatic: Denies: no symptoms, anemia, easy bleeding, easy bruising, other Allergies: Coded Allergies: No Known Allergies (Unverified , 05/23/20) Subjective No acute overnight events. Still on high BiPAP. Unable to do CTA chest until weaned off BiPAP per radiology. No chest pain, shortness of breath, fevers, chi lls. Wants better sleep. Objective Last 24 Hour Vital Signs Date Time Temp Pulse Resp B/P (MAP) Pulse Ox O2 Delivery O2 Flow Rate FiO2 05/25/20 09:00 108 23 126/85 (99) 99 05/25/20 08:25 120 132/104 05/25/20 08:00 Bi-pap 100.0 05/25/20 08:00 99.2 120 23 132/104 (113) 100 05/25/20 07:45 Bi-Pap 80 05/25/20 07:44 124 30 100 100 05/25/20 07:30 127 23 136/90 (105) 100 05/25/20 07:00 117 24 123/81 (95) 100 05/25/20 06:00 138 20 110/76 (87) 100 05/25/20 05:51 100 05/25/20 05:00 113 20 103/59 (74) 100 05/25/20 04:30 114 18 109/67 (81) 100 05/25/20 04:00 Bi-pap 100.0 05/25/20 04:00 98.7 118 17 109/58 (75) 100 05/25/20 04:00 100 05/25/20 04:00 111 05/25/20 03:43 112 32 100 100 05/25/20 03:00 106 22 109/84 (92) 94 05/25/20 02:00 109 20 135/77 (96) 100 05/25/20 01:00 111 19 125/70 (88) 99 05/25/20 00:00 99.0 101 22 136/82 (100) 93 05/25/20 00:00 Bi-pap 100.0 05/25/20 00:00 100 05/25/20 00:00 111 05/24/20 23:30 101 23 122/86 (98) 100 05/24/20 23:00 97 24 112/61 (78) 100 05/24/20 22:59 100 34 100 90 05/24/20 22:30 100 22 133/86 (102) 100 05/24/20 22:03 99 25 105/89 (94) 100 05/24/20 22:00 97 19 89/70 (76) 100 05/24/20 21:30 97 24 120/68 (85) 100 05/24/20 21:00 111 19 128/68 (88) 100 20 20:37 120 124/71 05/24/20 20:30 131 24 144/94 (111) 71 05/24/20 20:00 99.4 109 17 118/75 (89) 100 05/24/20 20:00 114 05/24/20 20:00 Non-Rebreather 100.0 05/24/20 19:22 100 Non-Rebreather 100 05/24/20 19:00 120 25 124/71 (88) 100 05/24/20 18:00 116 24 128/63 (84) 95 05/24/20 17:00 110 23 116/94 (101) 98 05/24/20 16:06 109 05/24/20 16:00 98.4 109 23 134/65 (88) 95 05/24/20 16:00 Bi-pap 100.0 05/24/20 15:00 102 18 138/61 (86) 99 05/24/20 14:00 100 23 127/74 (91) 98 05/24/20 13:00 104 25 129/102 (111) 100 05/24/20 12:00 Bi-pap 100.0 05/24/20 12:00 98.5 105 22 130/70 (90) 88 05/24/20 11:56 111 05/24/20 11:22 92 Non-Rebreather 100 05/24/20 11:00 95 20 146/90 (108) 100 05/24/20 11:00 91 30 100 90 Intake and Output 05/24/20 05/25/20 19:00 07:00 Intake Total 110 ml Output Total 705 ml 820 ml Balance -595 ml -820 ml IV Total 110 ml Output Urine Total 705 ml 820 ml # Bowel Movements 2 Laboratory Tests 05/24/20 12:55: Troponin I 0.058H 05/24/20 14:09: Arterial Blood pH 7.451H, Arterial Blood Partial Pressure CO2 34.4L, Arterial Blood Partial Pressure O2 57.2L, Arterial Blood HCO3 23.4, Arterial Blood Oxygen Saturation 89.6*L, Arterial Blood Base Excess 0, Alton Test Positive 05/25/20 05:00: White Blood Count 12.0H, Red Blood Count 4.36L, Hemoglobin 12.5L, Hematocrit 41.0L, Mean Corpuscular Volume 94, Mean Corpuscular Hemoglobin 28.6, Mean Corpu scular Hemoglobin Concent 30.4L, Red Cell Distribution Width 14.0, Platelet Count 267, Mean Platelet Volume 7.5, Neutrophils (%) (Auto) 67.3, Lymphocytes (%) (Auto) 15.1L, Monocytes (%) (Auto) 14.8H, Eosinophils (%) (Auto) 0.0, Basophils (%) (Auto) 2.7H, Sodium Level 138, Potassium Level 4.1, Chloride Level 101, Carbon Dioxide Level 29, Anion Gap 8, Blood Urea Nitrogen 18, Creatinine 0.9, Estimat Glomerular Filtration Rate > 60, Glucose Level 124H, Calcium Level 8.8, C-Reactive Protein, Quantitative 5.9H 05/25/20 07:28: Arterial Blood pH 7.412, Arterial Blood Partial Pressure CO2 42.0, Arterial Blood Partial Pressure O2 180.7H, Arterial Blood HCO3 26.1H, Arterial Blood Oxygen Saturation 98.5, Arterial Blood Base Excess 1.4, Alton Test Positive Height (Feet): 5 Height (Inches): 10.00 Weight (Pounds): 168 General Appearance: alert, mild distress EENT: PERRL/EOMI Neck: non-tender, normal alignment Cardiovascular: no JVD, tachycardia Respiratory/Chest: lungs clear, other - On BiPAP Abdomen: non tender, soft Extremities: normal range of motion, non-tender Edema: no edema noted Arm (L), no edema noted Arm (R), no edema noted Leg (L), no edema noted Leg (R), no edema noted Pedal (L), no edema noted Pedal (R), no edema noted 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 Benitez is a 69-year-old male past medical history of lung cancer, G-tube dependence, A. fib, hypertension who presents for respiratory failure. A: #Acute hypoxic respiratory failure status post BiPAP #Acute encephalopathy likely secondary to hypoxiaimproving #Atrial fibrillation with rapid ventricular response on blood thinner 2/2 CAP versus PE #Acute on ?chronic decompensated heart failure 2/2 tachyarrhythmia induced cardiomyopathy versus PE #Community-acquired pneumonia #History of lung cancer #Essential hypertension #G-tube dependent P: Currently on BiPAP, wean off as tolerated ABG reviewed: pH within normal limits, hypoxia improved Systolic blood pressure stable, no indication for pressor support at this time Keep MAP greater than 65 Preliminary echo report showing normal EF, RSVP 25, and undetermined diastolic Chest x-ray showing possible right lower lobe infiltrates We will continue Rocephin and doxycycline for possible pneumonia Leukocytosis today and elevated inflammatory markers, however no fevers, improving on ABG and weaning off BiPAP, will continue to monitor Blood cultures negative for 24 hours, MRSA screen negative Follow-up CTA to rule out PE: Etiology of respiratory failure and A. fib unsure if true CHF exacerbation need to rule out intraparenchymal diseases and possible PE Continue Lasix 40 mg IV twice daily Continue metoprolol 25 mg twice daily continue home Eliquis 5 mg twice daily Consult Dr. Akers, pulmonology, recs appreciated Consult Dr. Zamudio, cardiology, recs appreciated CM CODE STATUS: Full GI: Home omeprazole Diet: G-tube feeds DVT prophylaxis: Eliquis Dispo: Pending stabilization of respiratory failure Time spent on this encounter was 46 minutes which included 25 minutes of counseling and care coordination. Review of ABG, need for pressor support, vent/noninvasive PPV reviewed by me and along with discussion with pulmonology and cardiology. I discussed with the nurse at bedside. Time of note may not reflect time patient was seen. Gabino Alexander D.O May 25, 2020 10:25
[2020-05-25] MEDS: Doxycycline Hyclate 100 MG in D5W 110 ML IV SCH ×2 (11:43→20:15)
--- NOTE | 2020-05-25 11:56 | Surgery Progress Note ---
Surgery Progress Note Subjective Additional Comments tachycardic leukocytosis requiring bipap desats on face mask cxr noted Objective Last 24 Hour Vital Signs Date Time Temp Pulse Resp B/P (MAP) Pulse Ox O2 Delivery O2 Flow Rate FiO2 05/25/20 11:00 101 26 106/71 (83) 100 05/25/20 10:00 107 27 89/61 (70) 100 05/25/20 09:00 108 23 126/85 (99) 99 05/25/20 08:25 120 132/104 05/25/20 08:00 Bi-pap 100.0 05/25/20 08:00 99.2 120 23 132/104 (113) 100 05/25/20 08:00 125 05/25/20 07:45 Bi-Pap 80 05/25/20 07:44 124 30 100 100 05/25/20 07:30 127 23 136/90 (105) 100 05/25/20 07:00 117 24 123/81 (95) 100 05/25/20 06:00 138 20 110/76 (87) 100 05/25/20 05:51 100 05/25/20 05:00 113 20 103/59 (74) 100 05/25/20 04:30 114 18 109/67 (81) 100 05/25/20 04:00 Bi-pap 100.0 05/25/20 04:00 98.7 118 17 109/58 (75) 100 05/25/20 04:00 100 05/25/20 04:00 111 05/25/20 03:43 112 32 100 100 05/25/20 03:00 106 22 109/84 (92) 94 05/25/20 02:00 109 20 135/77 (96) 100 05/25/20 01:00 111 19 125/70 (88) 99 05/25/20 00:00 99.0 101 22 136/82 (100) 93 05/25/20 00:00 Bi-pap 100.0 05/25/20 00:00 100 05/25/20 00:00 111 05/24/20 23:30 101 23 122/86 (98) 100 05/24/20 23:00 97 24 112/61 (78) 100 05/24/20 22:59 100 34 100 90 05/24/20 22:30 100 22 133/86 (102) 100 05/24/20 22:03 99 25 105/89 (94) 100 05/24/20 22:00 97 19 89/70 (76) 100 05/24/20 21:30 97 24 120/68 (85) 100 05/24/20 21:00 111 19 128/68 (88) 100 05/24/20 20:37 120 124/71 05/24/20 20:30 131 24 144/94 (111) 71 05/24/20 20:00 99.4 109 17 118/75 (89) 100 05/24/20 20:00 114 05/24/20 20:00 Non-Rebreather 100.0 05/24/20 19:22 100 Non-Rebreather 100 05/24/20 19:00 120 25 124/71 (88) 100 05/24/20 18:00 116 24 128/63 (84) 95 05/24/20 17:00 110 23 116/94 (101) 98 05/24/20 16:06 109 05/24/20 16:00 98.4 109 23 134/65 (88) 95 05/24/20 16:00 Bi-pap 100.0 05/24/20 15:00 102 18 138/61 (86) 99 05/24/20 14:00 100 23 127/74 (91) 98 05/24/20 13:00 104 25 129/102 (111) 100 05/24/20 12:00 Bi-pap 100.0 05/24/20 12:00 98.5 105 22 130/70 (90) 88 05/24/20 11:56 111 I&O Intake and Output 05/24/20 05/25/20 19:00 07:00 Intake Total 110 ml Output Total 705 ml 820 ml Balance -595 ml -820 ml IV Total 110 ml Output Urine Total 705 ml 820 ml # Bowel Movements 2 Cardiovascular: RSR Respiratory: decreased breath sounds Abdomen: soft, non-tender, non-distended, decreased bowel sounds Extremities: no tenderness, no cyanosis Laboratory Tests Test 05/24/20 12:55 05/24/20 14:09 05/25/20 05:00 05/25/20 07:28 Troponin I 0.058 ng/mL (0.000-0.056) Arterial Blood pH 7.451 (7.350-7.450) 7.412 (7.350-7.450) Arterial Blood Partial Pressure CO2 34.4 mmHg (35.0-45.0) L 42.0 mmHg (35.0-45.0) Arterial Blood Partial Pressure O2 57.2 mmHg (75.0-100.0) L 180.7 mmHg (75.0-100.0) H Arterial Blood HCO3 23.4 mmol/L (22.0-26.0) 26.1 mmol/L (22.0-26.0) H Arterial Blood Oxygen Saturation 89.6 % (95-100) *L 98.5 % (95-100) Arterial Blood Base Excess 0 (-2-2) 1.4 (-2-2) Alton Test Positive Positive White Blood Count 12.0 K/UL (4.8-10.8) H Red Blood Count 4.36 M/UL (4.70-6.10) L Hemoglobin 12.5 G/DL (14.2-18.0) L Hematocrit 41.0 % (42.0-52.0) L Mean Corpuscular Volume 94 FL (80-99) Mean Corpuscular Hemoglobin 28.6 PG (27.0-31.0) Mean Corpuscular Hemoglobin Concent 30.4 G/DL (32.0-36.0) L Red Cell Distribution Width 14.0 % (11.6-14.8) Platelet Count 267 K/UL (150-450) Mean Platelet Volume 7.5 FL (6.5-10.1) Neutrophils (%) (Auto) 67.3 % (45.0-75.0) Lymphocytes (%) (Auto) 15.1 % (20.0-45.0) L Monocytes (%) (Auto) 14.8 % (1.0-10.0) H Eosinophils (%) (Auto) 0.0 % (0.0-3.0) Basophils (%) (Auto) 2.7 % (0.0-2.0) H Sodium Level 138 MMOL/L (136-145) Potassium Level 4.1 MMOL/L (3.5-5.1) Chloride Level 101 MMOL/L (98-107) Carbon Dioxide Level 29 MMOL/L (21-32) Anion Gap 8 mmol/L (5-15) Blood Urea Nitrogen 18 mg/dL (7-18) Creatinine 0.9 MG/DL (0.55-1.30) Estimat Glomerular Filtration Rate > 60 mL/min (>60) Glucose Level 124 MG/DL (74-106) H Calcium Level 8.8 MG/DL (8.5-10.1) C-Reactive Protein, Quantitative 5.9 mg/dL (0.00-0.90) H Plan Problems: (1) Shortness of breath (2) Lung cancer (3) A-fib (4) CHF exacerbation (5) G tube feedings (6) Cellulitis of scrotum Assessment & Plan: Patient identified admission to have scrotal cellulitis with fluid-filled large scrotum in the posterior aspect of the perineum there is a opening proximally 1 cm raised 1 cm with cellulitis and induration around it no fluctuance no abscess. Wound washed. Swab Betadine. Dressings applied. IV antibiotics. Will monitor with physical examination to ensure not worsening. May form phlegmon into abscess requiring I&D but currently no fluid collection requiring I&D. Will monitor to ensure healing. Thank you for letting present patient's care will follow with recommendations abd exam improved scrotum stable requiring bipap cxr noted leukocytosis cont abx fluids respiratory support DAILY ESTIMATED NEEDS: Needs based on Pulmonary, Cancer, bedbound 72.6kg 23-28 kcals/kg [id number] total kcals 1-1.5 g protein/kg 73-109 g total protein Fluid per MD, on lasix NUTRITION DIAGNOSIS: Swallowing difficulty r/t dysphagia as evidenced by pt is PEG dep. CURRENT TF: (NPO) ENTERAL NUTRITION RECOMMENDATIONS: As medically able, rec Glucerna 1.5 goal of 50ml/hr x24 hrs to provide 1200ml, 1800 kcal, 99g pro, 911ml free H2O - As medically able, rec carb control (elev BG 127-165), low free fluid formula(elev BNP, on lasix, edematous). - Start Glucerna 1.5 @20ml/hr for 6 hrs, advance as tolerated 10ml/hr q4-6 hrs to goal. - Flush per MD/ pt is on lasix - HOB over 30 degrees ADDITIONAL RECOMMENDATIONS: 1) TF recs above when medically appropriate 2) Rec bed side BG checks; am labs w/ elev BG (127-165). 3) Monitor lytes, need or renal formula (elev phos, elev Mg) 4) W/ lasix, add B-complex 1 daily 5) Maintain calibrated bed scale wts (7) Hypoxia Roman Pickens May 25, 2020 11:56
--- NOTE | 2020-05-25 12:12 | Pulmonology Progress Note ---
Subjective ROS Limited/Unobtainable: Yes - Unable to give a good full review of system as patient is on BiPAP, not able to fully respond to questions Interval Events: None new reported; looking better Constitutional: Reports: no symptoms HEENT: Repors: no symptoms Respiratory: Reports: no symptoms Cardiovascular: Reports: no symptoms Gastrointestinal/Abdominal: Reports: no symptoms Genitourinary: Reports: no symptoms Neurologic: Reports: no symptoms Allergies: Coded Allergies: No Known Allergies (Unverified , 05/23/20) Objective Last 24 Hour Vital Signs Date Time Temp Pulse Resp B/P (MAP) Pulse Ox O2 Delivery O2 Flow Rate FiO2 05/25/20 11:00 101 26 106/71 (83) 100 05/25/20 10:00 107 27 89/61 (70) 100 05/25/20 09:00 108 23 126/85 (99) 99 05/25/20 08:25 120 132/104 05/25/20 08:00 Bi-pap 100.0 05/25/20 08:00 99.2 120 23 132/104 (113) 100 05/25/20 08:00 125 05/25/20 07:45 Bi-Pap 80 05/25/20 07:44 124 30 100 100 05/25/20 07:30 127 23 136/90 (105) 100 05/25/20 07:00 117 24 123/81 (95) 100 05/25/20 06:00 138 20 110/76 (87) 100 05/25/20 05:51 100 05/25/20 05:00 113 20 103/59 (74) 100 05/25/20 04:30 114 18 109/67 (81) 100 05/25/20 04:00 Bi-pap 100.0 05/25/20 04:00 98.7 118 17 109/58 (75) 100 05/25/20 04:00 100 05/25/20 04:00 111 05/25/20 03:43 112 32 100 100 05/25/20 03:00 106 22 109/84 (92) 94 05/25/20 02:00 109 20 135/77 (96) 100 05/25/20 01:00 111 19 125/70 (88) 99 05/25/20 00:00 99.0 101 22 136/82 (100) 93 05/25/20 00:00 Bi-pap 100.0 05/25/20 00:00 100 05/25/20 00:00 111 05/24/20 23:30 101 23 122/86 (98) 100 05/24/20 23:00 97 24 112/61 (78) 100 05/24/20 22:59 100 34 100 90 05/24/20 22:30 100 22 133/86 (102) 100 05/24/20 22:03 99 25 105/89 (94) 100 05/24/20 22:00 97 19 89/70 (76) 100 05/24/20 21:30 97 24 120/68 (85) 100 05/24/20 21:00 111 19 128/68 (88) 100 05/24/20 20:37 120 124/71 05/24/20 20:30 131 24 144/94 (111) 71 05/24/20 20:00 99.4 109 17 118/75 (89) 100 05/24/20 20:00 114 05/24/20 20:00 Non-Rebreather 100.0 05/24/20 19:22 100 Non-Rebreather 100 05/24/20 19:00 120 25 124/71 (88) 100 05/24/20 18:00 116 24 128/63 (84) 95 05/24/20 17:00 110 23 116/94 (101) 98 05/24/20 16:06 109 05/24/20 16:00 98.4 109 23 134/65 (88) 95 05/24/20 16:00 Bi-pap 100.0 05/24/20 15:00 102 18 138/61 (86) 99 05/24/20 14:00 100 23 127/74 (91) 98 05/24/20 13:00 104 25 129/102 (111) 100 Intake and Output 05/24/20 05/25/20 19:00 07:00 Intake Total 110 ml Output Total 705 ml 820 ml Balance -595 ml -820 ml IV Total 110 ml Output Urine Total 705 ml 820 ml # Bowel Movements 2 General Appearance: no acute distress HEENT: normocephalic Respiratory: chest wall non-tender, decreased breath sounds Cardiovascular: normal peripheral pulses, normal rate Abdomen: normal bowel sounds Microbiology Date/Time Source Procedure Growth Status 05/23/20 04:30 Rectum - Final NO CARBAPENEM-RESISTANT ENTEROBACTERI... Complete 05/23/20 04:30 Rectum VRE Culture - Final NO VANCOMYCIN RESISTANT ENTEROCOCCUS ... Complete 05/23/20 04:30 Nasal Nares MRSA Culture - Final NO METHICILLIN RESISTANT STAPH AUREUS... Complete 05/23/20 03:21 Nasopharynx SARS-CoV-2 RdRp Gene Assay - Final Complete 05/23/20 03:20 Blood Blood Culture - Preliminary NO GROWTH AFTER 24 HOURS Resulted 05/23/20 03:05 Blood Blood Culture - Preliminary NO GROWTH AFTER 24 HOURS Resulted Laboratory Tests 05/24/20 12:55: Troponin I 0.058H 05/24/20 14:09: Arterial Blood pH 7.451H, Arterial Blood Partial Pressure CO2 34.4L, Arterial Blood Partial Pressure O2 57.2L, Arterial Blood HCO3 23.4, Arterial Blood Oxygen Saturation 89.6*L, Arterial Blood Base Excess 0, Alton Test Positive 05/25/20 05:00: White Blood Count 12.0H, Red Blood Count 4.36L, Hemoglobin 12.5L, Hematocrit 41.0L, Mean Corpuscular Volume 94, Mean Corpuscular Hemoglobin 28.6, Mean C orpuscular Hemoglobin Concent 30.4L, Red Cell Distribution Width 14.0, Platelet Count 267, Mean Platelet Volume 7.5, Neutrophils (%) (Auto) 67.3, Lymphocytes (%) (Auto) 15.1L, Monocytes (%) (Auto) 14.8H, Eosinophils (%) (Auto) 0.0, Basophils (%) (Auto) 2.7H, Sodium Level 138, Potassium Level 4.1, Chloride Level 101, Carbon Dioxide Level 29, Anion Gap 8, Blood Urea Nitrogen 18, Creatinine 0.9, Estimat Glomerular Filtration Rate > 60, Glucose Level 124H, Calcium Level 8.8, C-Reactive Protein, Quantitative 5.9H 05/25/20 07:28: Arterial Blood pH 7.412, Arterial Blood Partial Pressure CO2 42.0, Arterial Blood Partial Pressure O2 180.7H, Arterial Blood HCO3 26.1H, Arterial Blood Oxygen Saturation 98.5, Arterial Blood Base Excess 1.4, Alton Test Positive Current Medications Medications (Trade) Dose Ordered Sig/Joan Route PRN Reason Start Time Stop Time Status Last Admin Dose Admin Apixaban (Eliquis) 5 mg BID GT 05/23/20 18:00 08/21/20 17:59 05/25/20 08:25 Ceftriaxone Sodium 1 gm/ Dextrose 55 ml @ 110 mls/hr Q24H IVPB 05/25/20 13:00 06/01/20 12:59 Chlorhexidine Gluconate (Zohreh-Hex 2%) 1 applic DAILY@2000 TOPIC 05/23/20 20:00 08/21/20 19:59 05/24/20 20:37 Dextrose (Dextrose 50%) 25 ml Q30M PRN IV Hypoglycemia 05/23/20 05:15 08/21/20 05:14 Dextrose (Dextrose 50%) 50 ml Q30M PRN IV Hypoglycemia 05/23/20 05:15 08/21/20 05:14 Doxycycline Hyclate 100 mg/ Dextrose 110 ml @ 110 mls/hr Q12HR IV 05/25/20 12:00 06/01/20 11:59 05/25/20 11:43 Furosemide (Lasix) 40 mg EVERY 12 HOURS IV 05/23/20 11:00 06/22/20 10:59 05/25/20 08:25 Iohexol (Omnipaque 350 100ml) 100 ml NOW PRN INJ Radiology Procedure 05/23/20 14:30 05/25/20 14:29 Metoprolol Tartrate (Lopressor) 50 mg Q12HR GT 05/23/20 21:10 08/21/20 21:09 05/25/20 08:25 Oxycodone HCl (Roxicodone) 5 mg Q4H PRN GT pain 4-10 05/23/20 22:00 05/30/20 21:59 05/25/20 02:21 Assessment/Plan Assessment/Plan IMPRESSION: 1. Decompensated congestive heart failure. 2. Permanent pacemaker. 3. Right pleural effusion. 4. History of lung cancer. 5. Hypoxic respiratory failure. DISCUSSION: 1. Agree with diuresis if blood pressure allows. 2. Will attempt off BiPAP; check ABG; he did well yesterday on NRBM 3. Initial COVID-19 testing is negative. 4. I will follow carefully. Kirstie Membreno Omar Syed MD May 25, 2020 12:12
[2020-05-25] MEDS ORDERED: cefTRIAXone 1gm/D5W 55ml IVPB SCH ×2 (13:00)
[2020-05-25] MEDS ORDERED: Tubing IV Secondary IV ONE (13:42)
--- NOTE | 2020-05-25 17:06 | Cardiology Progress Note ---
Assessment/Plan Problem List: (1) Lung cancer (2) Shortness of breath (3) A-fib (4) CHF exacerbation (5) Hypoxia Status: stable, unchanged Status Narrative Pt w/ CHF, respiratory failure. Appears in CHF clinically, possibly diastolic HF exacerbated by rapid AF. He is s/p perm pacemaker - uncertain indication Troponin is mildly elevated - suspect demand ischemia in setting of hypoxia and rapid AF Pt also w/ hx of lung CA- uncertain type, stage Assessment/Plan Continue iv lasix diuresis. I/os negative appx 3 L since adm Will continue metoprolol and give 1 dose iv digoxin today. Evaluation / rx for lung ca and possible pneumonia per primary team and pulm market consultant Subjective ROS Limited/Unobtainable: No Subjective Cardiology for Dr. Zamudio Pt awake/alert, on NRB mask. c/o feeling hungry. c/o arm restraints Objective Last 24 Hour Vital Signs Date Time Temp Pulse Resp B/P (MAP) Pulse Ox O2 Delivery O2 Flow Rate FiO2 05/25/20 16:00 120 05/25/20 16:00 Non-Rebreather 15.0 05/25/20 16:00 99.2 122 24 115/61 (79) 95 05/25/20 15:00 121 23 125/62 (83) 05/25/20 14:00 122 26 94/64 (74) 86 05/25/20 13:00 107 19 108/57 (74) 90 05/25/20 12:00 100.0 108 19 107/38 (61) 100 05/25/20 12:00 Bi-pap 100.0 05/25/20 12:00 115 05/25/20 12:00 15.0 05/25/20 11:00 101 26 106/71 (83) 100 05/25/20 10:00 107 27 89/61 (70) 100 05/25/20 09:00 108 23 126/85 (99) 99 05/25/20 08:25 120 132/104 05/25/20 08:00 Bi-pap 100.0 05/25/20 08:00 99.2 120 23 132/104 (113) 100 05/25/20 08:00 125 05/25/20 08:00 100 05/25/20 07:45 Bi-Pap 80 05/25/20 07:44 124 30 100 100 05/25/20 07:30 127 23 136/90 (105) 100 05/25/20 07:00 117 24 123/81 (95) 100 05/25/20 06:00 138 20 110/76 (87) 100 05/25/20 05:51 100 05/25/20 05:00 113 20 103/59 (74) 100 05/25/20 04:30 114 18 109/67 (81) 100 05/25/20 04:00 Bi-pap 100.0 05/25/20 04:00 98.7 118 17 109/58 (75) 100 05/25/20 04:00 100 05/25/20 04:00 111 05/25/20 03:43 112 32 100 100 05/25/20 03:00 106 22 109/84 (92) 94 05/25/20 02:00 109 20 135/77 (96) 100 05/25/20 01:00 111 19 125/70 (88) 99 05/25/20 00:00 99.0 101 22 136/82 (100) 93 05/25/20 00:00 Bi-pap 100.0 05/25/20 00:00 100 05/25/20 00:00 111 05/24/20 23:30 101 23 122/86 (98) 100 05/24/20 23:00 97 24 112/61 (78) 100 05/24/20 22:59 100 34 100 90 05/24/20 22:30 100 22 133/86 (102) 100 05/24/20 22:03 99 25 105/89 (94) 100 05/24/20 22:00 97 19 89/70 (76) 100 05/24/20 21:30 97 24 120/68 (85) 100 05/24/20 21:00 111 19 128/68 (88) 100 05/24/20 20:37 120 124/71 05/24/20 20:30 131 24 144/94 (111) 71 05/24/20 20:00 99.4 109 17 118/75 (89) 100 05/24/20 20:00 114 05/24/20 20:00 Non-Rebreather 100.0 05/24/20 19:22 100 Non-Rebreather 100 05/24/20 19:00 120 25 124/71 (88) 100 05/24/20 18:00 116 24 128/63 (84) 95 05/24/20 17:00 110 23 116/94 (101) 98 General Appearance: WD/WN, alert, other - on NRB mask EENT: PERRL/EOMI Neck: no JVD Rhythm: Afib Cardiovascular: tachycardia, irregularly irregular Respiratory/Chest: rhonchi - bilaterally, other Abdomen: non tender, soft, other - obese Extremities: no swelling Intake and Output 05/24/20 05/25/20 19:00 07:00 Intake Total 110 ml Output Total 705 ml 820 ml Balance -595 ml -820 ml IV Total 110 ml Output Urine Total 705 ml 820 ml # Bowel Movements 2 Laboratory Tests Test 05/25/20 05:00 05/25/20 07:28 White Blood Count 12.0 K/UL (4.8-10.8) H Red Blood Count 4.36 M/UL (4.70-6.10) L Hemoglobin 12.5 G/DL (14.2-18.0) L Hematocrit 41.0 % (42.0-52.0) L Mean Corpuscular Volume 94 FL (80-99) Mean Corpuscular Hemoglobin 28.6 PG (27.0-31.0) Mean Corpuscular Hemoglobin Concent 30.4 G/DL (32.0-36.0) L Red Cell Distribution Width 14.0 % (11.6-14.8) Platelet Count 267 K/UL (150-450) Mean Platelet Volume 7.5 FL (6.5-10.1) Neutrophils (%) (Auto) 67.3 % (45.0-75.0) Lymphocytes (%) (Auto) 15.1 % (20.0-45.0) L Monocytes (%) (Auto) 14.8 % (1.0-10.0) H Eosinophils (%) (Auto) 0.0 % (0.0-3.0) Basophils (%) (Auto) 2.7 % (0.0-2.0) H Sodium Level 138 MMOL/L (136-145) Potassium Level 4.1 MMOL/L (3.5-5.1) Chloride Level 101 MMOL/L (98-107) Carbon Dioxide Level 29 MMOL/L (21-32) Anion Gap 8 mmol/L (5-15) Blood Urea Nitrogen 18 mg/dL (7-18) Creatinine 0.9 MG/DL (0.55-1.30) Estimat Glomerular Filtration Rate > 60 mL/min (>60) Glucose Level 124 MG/DL (74-106) H Calcium Level 8.8 MG/DL (8.5-10.1) C-Reactive Protein, Quantitative 5.9 mg/dL (0.00-0.90) H Arterial Blood pH 7.412 (7.350-7.450) Arterial Blood Partial Pressure CO2 42.0 mmHg (35.0-45.0) Arterial Blood Partial Pressure O2 180.7 mmHg (75.0-100.0) H Arterial Blood HCO3 26.1 mmol/L (22.0-26.0) H Arterial Blood Oxygen Saturation 98.5 % (95-100) Arterial Blood Base Excess 1.4 (-2-2) Alton Test Positive Microbiology Date/Time Source Procedure Growth Status 05/23/20 04:30 Rectum - Final NO CARBAPENEM-RESISTANT ENTEROBACTERI... Complete 05/23/20 04:30 Rectum VRE Culture - Final NO VANCOMYCIN RESISTANT ENTEROCOCCUS ... Complete 05/23/20 04:30 Nasal Nares MRSA Culture - Final NO METHICILLIN RESISTANT STAPH AUREUS... Complete 05/23/20 03:21 Nasopharynx SARS-CoV-2 RdRp Gene Assay - Final Complete 05/23/20 03:20 Blood Blood Culture - Preliminary NO GROWTH AFTER 24 HOURS Resulted 05/23/20 03:05 Blood Blood Culture - Preliminary NO GROWTH AFTER 24 HOURS Resulted Julia Acuna MD May 25, 2020 17:05
[2020-05-25] MEDS ORDERED: Digoxin 0.5mg/2ml Inj IVP SCH (17:15)
[2020-05-25] MEDS: dilTIAZem Premix 125mg/125ml 125 ML IVPB SCH (19:50)
[2020-05-25] MEDS: Dyna-Hex 2% Top Sol 2oz TOPIC SCH (19:50)
[2020-05-26] VITALS (59 sets, daily range): BP systolic 91–146; BP diastolic 51–121
[2020-05-26] MEDS: oxyCODONE 5mg IR tab GT PRN ×4 (01:43→20:22)
[2020-05-26 05:12] LABS: BASOPHILS % (AUTO) 3.3 % (0.0-2.0); EOSINOPHILS % (AUTO) 0.1 % (0.0-3.0); HEMATOCRIT 43.9 % (42.0-52.0); HEMOGLOBIN 13.3 G/DL (14.2-18.0); LYMPHOCYTES % (AUTO) 12.5 % (20.0-45.0); MEAN CORPUSCULAR VOLUME 94 FL (80-99); MONOCYTES % (AUTO) 14.3 % (1.0-10.0); NEUTROPHILS % (AUTO) 69.8 % (45.0-75.0); PLATELET COUNT 307 K/UL (150-450); RED BLOOD COUNT 4.66 M/UL (4.70-6.10); RED CELL DISTRIBUTION WIDTH 13.8 % (11.6-14.8); WHITE BLOOD COUNT 15.4 K/UL (4.8-10.8)
[2020-05-26 05:34] LABS: ANION GAP 8 mmol/L (5-15); BLOOD UREA NITROGEN 18 mg/dL (7-18); CARBON DIOXIDE 31 MMOL/L (21-32); CHLORIDE 99 MMOL/L (98-107); CREATININE 0.9 MG/DL (0.55-1.30); POTASSIUM 3.6 MMOL/L (3.5-5.1); SODIUM 138 MMOL/L (136-145)
[2020-05-26] MEDS: Eliquis 5mg tablet GT SCH ×2 (08:15→17:18)
[2020-05-26] MEDS: Metoprolol Tartrate 50mg tab GT SCH ×2 (08:16→20:58)
[2020-05-26] MEDS ORDERED: Cefepime HCl 1 GM in D5W 55 ML IVPB SCH (09:00)
[2020-05-26] MEDS: Cefepime 2gm in D5W 55ml IVPB SCH ×2 (09:49→21:48)
[2020-05-26] MEDS: Doxycycline Hyclate 100 MG in D5W 110 ML IV SCH ×2 (09:49→20:59)
--- NOTE | 2020-05-26 09:54 | Diagnostic Imaging Report ---
EXAM: XR Chest, 1 View CLINICAL HISTORY: INFECT TECHNIQUE: Frontal view of the chest. COMPARISON: No relevant prior studies available. FINDINGS/IMPRESSION: Dual lead pacemaker in the right atrium and right ventricle. Right IJ catheter terminates in the superior vena cava. Moderate vascular congestion. Small right pleural effusion. No pneumothorax. Cardiomegaly. Calcified, tortuous aorta.
--- NOTE | 2020-05-26 10:02 | Pulmonology Progress Note ---
Subjective ROS Limited/Unobtainable: No Interval Events: Failed NRBM; back on BiPAP Constitutional: Reports: no symptoms HEENT: Repors: no symptoms Respiratory: Reports: no symptoms Cardiovascular: Reports: no symptoms Gastrointestinal/Abdominal: Reports: no symptoms Genitourinary: Reports: no symptoms Neurologic: Reports: no symptoms Allergies: Coded Allergies: No Known Allergies (Unverified , 05/23/20) Objective Last 24 Hour Vital Signs Date Time Temp Pulse Resp B/P (MAP) Pulse Ox O2 Delivery O2 Flow Rate FiO2 05/26/20 08:16 115 127/101 05/26/20 07:15 100 Bi-Pap 100 05/26/20 07:15 124 32 100 100 05/26/20 07:00 105 30 91/58 (69) 95 05/26/20 06:00 116 29 129/82 (98) 98 05/26/20 05:30 104 25 103/68 (80) 98 05/26/20 05:00 109 21 100/76 (84) 90 05/26/20 04:00 98.0 99 19 120/89 (99) 84 05/26/20 04:00 113 05/26/20 04:00 Bi-pap 100.0 05/26/20 03:15 110 34 99 80 05/26/20 03:00 119 22 131/69 (89) 93 05/26/20 02:00 112 23 128/69 (88) 05/26/20 01:00 118 21 134/118 (123) 05/26/20 00:00 166 05/26/20 00:00 110 19 112/93 (99) 100 05/26/20 00:00 Bi-pap 100.0 05/25/20 23:33 121 32 98 100 05/25/20 23:00 101 22 120/102 (108) 97 05/25/20 22:00 105 24 124/74 (91) 95 05/25/20 21:00 137 21 106/73 (84) 99 05/25/20 20:14 137 100/59 05/25/20 20:00 99.0 139 19 100/59 (73) 100 05/25/20 20:00 Bi-pap 100.0 05/25/20 20:00 168 05/25/20 19:11 132 31 99 100 05/25/20 19:10 99 Bi-Pap 100 05/25/20 19:00 140 23 114/68 (83) 100 05/25/20 18:00 126 26 119/71 (87) 100 05/25/20 17:34 120 05/25/20 17:00 123 20 116/73 (87) 98 05/25/20 16:00 120 05/25/20 16:00 Non-Rebreather 15.0 05/25/20 16:00 99.2 122 24 115/61 (79) 95 05/25/20 15:00 121 23 125/62 (83) 05/25/20 14:00 122 26 94/64 (74) 86 05/25/20 13:00 107 19 108/57 (74) 90 05/25/20 12:00 100.0 108 19 107/38 (61) 100 05/25/20 12:00 Bi-pap 100.0 05/25/20 12:00 115 05/25/20 12:00 15.0 05/25/20 11:00 101 26 106/71 (83) 100 05/25/20 10:00 107 27 89/61 (70) 100 Intake and Output 05/25/20 05/26/20 19:00 07:00 Intake Total 295 ml 305.83 ml Output Total 815 ml 1575 ml Balance -520 ml -1269.17 ml Intake Free Water 100 ml IV Total 165 ml 185.83 ml Other 30 ml 120 ml Output Urine Total 815 ml 1575 ml # Bowel Movements 1 General Appearance: no acute distress HEENT: normocephalic Respiratory: chest wall non-tender, decreased breath sounds Cardiovascular: normal peripheral pulses, normal rate Abdomen: normal bowel sounds Laboratory Tests 05/26/20 04:30: White Blood Count 15.4H, Red Blood Count 4.66L, Hemoglobin 13.3L, Hematocrit 43.9, Mean Corpuscular Volume 94, Mean Corpuscular Hemoglobin 28.5, Mean Corpuscular Hemoglobin Concent 30.3L, Red Cell Distribution Width 13.8, Platelet Count 307, Mean Platelet Volume 8.3, Neutrophils (%) (Auto) 69.8, Lymphocytes (%) (Auto) 12.5L, Monocytes (%) (Auto) 14.3H, Eosinophils (%) (Auto) 0.1, Basophils (%) (Auto) 3.3H, Sodium Level 138, Potassium Level 3.6, Chloride Level 99, Carbon Dioxide Level 31, Anion Gap 8, Blood Urea Nitrogen 18, Creatinine 0.9 , Estimat Glomerular Filtration Rate > 60, Glucose Level 133H, Calcium Level 9.0, Magnesium Level 2.0, C-Reactive Protein, Quantitative 13.0H, Pro-B-Type Natriuretic Peptide 1639H 05/26/20 05:01: Arterial Blood pH 7.325L, Arterial Blood Partial Pressure CO2 56.0*H, Arterial Blood Partial Pressure O2 53.0L, Arterial Blood HCO3 28.5H, Arterial Blood Oxygen Saturation 84.6*L, Arterial Blood Base Excess 1.4, Alton Test Positive 05/26/20 05:05: POC Whole Blood Glucose 154H Current Medications Medications (Trade) Dose Ordered Sig/Joan Route PRN Reason Start Time Stop Time Status Last Admin Dose Admin Apixaban (Eliquis) 5 mg BID GT 05/23/20 18:00 08/21/20 17:59 05/26/20 08:15 Cefepime HCl 2 gm/ Dextrose 55 ml @ 110 mls/hr Q8HR IVPB 05/26/20 10:00 06/02/20 09:59 05/26/20 09:49 Chlorhexidine Gluconate (Zohreh-Hex 2%) 1 applic DAILY@2000 TOPIC 05/23/20 20:00 08/21/20 19:59 05/25/20 19:50 Dextrose (Dextrose 50%) 25 ml Q30M PRN IV Hypoglycemia 05/23/20 05:15 08/21/20 05:14 Dextrose (Dextrose 50%) 50 ml Q30M PRN IV Hypoglycemia 05/23/20 05:15 08/21/20 05:14 Diltiazem HCl 125 ml @ 5 mls/hr Q24H IVPB 05/25/20 19:45 05/26/20 19:44 05/25/20 19:50 Doxycycline Hyclate 100 mg/ Dextrose 110 ml @ 110 mls/hr Q12HR IV 05/25/20 12:00 06/01/20 11:59 05/26/20 09:49 Furosemide (Lasix) 40 mg EVERY 12 HOURS IV 05/23/20 11:00 06/22/20 10:59 05/26/20 08:18 Metoprolol Tartrate (Lopressor) 50 mg Q12HR GT 05/23/20 21:10 08/21/20 21:09 05/26/20 08:16 Oxycodone HCl (Roxicodone) 5 mg Q4H PRN GT pain 4-10 05/23/20 22:00 05/30/20 21:59 05/26/20 09:38 Vancomycin HCl 250 ml @ 166.667 mls/hr Q12H IVPB 05/26/20 23:00 05/31/20 22:59 Vancomycin HCl ([facility] pharmacy to dose) 1 ea DAILY PRN MISC Per rx protocol 05/26/20 08:00 06/25/20 07:59 Vancomycin HCl 2 gm/Dextrose 550 ml @ 275 mls/hr ONCE ONCE IVPB 05/26/20 11:00 05/26/20 12:59 Assessment/Plan Assessment/Plan IMPRESSION: 1. Decompensated congestive heart failure. 2. Permanent pacemaker. 3. Right pleural effusion. 4. History of lung cancer. 5. Hypoxic respiratory failure. DISCUSSION: 1. Agree with diuresis; is consistently >1L negative per day last 3 days 2. Will attempt off BiPAP;try hi flow o2 3. COVID-19 testing is negative. 4. I will follow carefully. Kirstie Membreno Omar Syed MD May 26, 2020 10:01
--- NOTE | 2020-05-26 10:18 | General Progress Note ---
Subjective ROS Limited/Unobtainable: Yes - On BiPAP, unable to answer questions at this time Allergies: Coded Allergies: No Known Allergies (Unverified , 05/23/20) Subjective No acute overnight events. Still on BiPAP. Patient on restraints per nurse as he gets very agitated. No fevers however increased inflammatory markers on labs this morning. Will broaden antibiotics and have ID see patient. Objective Last 24 Hour Vital Signs Date Time Temp Pulse Resp B/P (MAP) Pulse Ox O2 Delivery O2 Flow Rate FiO2 05/26/20 08:16 115 127/101 05/26/20 07:15 100 Bi-Pap 100 05/26/20 07:15 124 32 100 100 05/26/20 07:00 105 30 91/58 (69) 95 05/26/20 06:00 116 29 129/82 (98) 98 05/26/20 05:30 104 25 103/68 (80) 98 05/26/20 05:00 109 21 100/76 (84) 90 05/26/20 04:00 98.0 99 19 120/89 (99) 84 05/26/20 04:00 113 05/26/20 04:00 Bi-pap 100.0 05/26/20 03:15 110 34 99 80 05/26/20 03:00 119 22 131/69 (89) 93 05/26/20 02:00 112 23 128/69 (88) 05/26/20 01:00 118 21 134/118 (123) 05/26/20 00:00 166 05/26/20 00:00 110 19 112/93 (99) 100 05/26/20 00:00 Bi-pap 100.0 05/25/20 23:33 121 32 98 100 05/25/20 23:00 101 22 120/102 (108) 97 05/25/20 22:00 105 24 124/74 (91) 95 05/25/20 21:00 137 21 106/73 (84) 99 05/25/20 20:14 137 100/59 05/25/20 20:00 99.0 139 19 100/59 (73) 100 05/25/20 20:00 Bi-pap 100.0 05/25/20 20:00 168 05/25/20 19:11 132 31 99 100 05/25/20 19:10 99 Bi-Pap 100 05/25/20 19:00 140 23 114/68 (83) 100 05/25/20 18:00 126 26 119/71 (87) 100 05/25/20 17:34 120 05/25/20 17:00 123 20 116/73 (87) 98 05/25/20 16:00 120 05/25/20 16:00 Non-Rebreather 15.0 05/25/20 16:00 99.2 122 24 115/61 (79) 95 05/25/20 15:00 121 23 125/62 (83) 05/25/20 14:00 122 26 94/64 (74) 86 05/25/20 13:00 107 19 108/57 (74) 90 05/25/20 12:00 100.0 108 19 107/38 (61) 100 05/25/20 12:00 Bi-pap 100.0 05/25/20 12:00 115 05/25/20 12:00 15.0 05/25/20 11:00 101 26 106/71 (83) 100 Intake and Output 05/25/20 05/26/20 19:00 07:00 Intake Total 295 ml 305.83 ml Output Total 815 ml 1575 ml Balance -520 ml -1269.17 ml Intake Free Water 100 ml IV Total 165 ml 185.83 ml Other 30 ml 120 ml Output Urine Total 815 ml 1575 ml # Bowel Movements 1 Laboratory Tests 05/26/20 04:30: White Blood Count 15.4H, Red Blood Count 4.66L, Hemoglobin 13.3L, Hematocrit 43.9, Mean Corpuscular Volume 94, Mean Corpuscular Hemoglobin 28.5, Mean Corpuscular Hemoglobin Concent 30.3L, Red Cell Distribution Width 13.8, Platelet Count 307, Mean Platelet Volume 8.3, Neutrophils (%) (Auto) 69.8, Lymphocytes (%) (Auto) 12.5L, Monocytes (%) (Auto) 14.3H, Eosinophils (%) (Auto) 0.1, Basophils (%) (Auto) 3.3H, Sodium Level 138, Potassium Level 3.6, Chloride Level 99, Carbon Dioxide Level 31, Anion Gap 8, Blood Urea Nitrogen 18, Creatinine 0.9, Estimat Glomerular Filtration Rate > 60, Glucose Level 133H, Calcium Level 9.0, Magnesium Level 2.0, C-Reactive Protein, Quantitative 13.0H, Pro-B-Type Natriuretic Peptide 1639H 05/26/20 05:01: Arterial Blood pH 7.325L, Arterial Blood Partial Pressure CO2 56.0*H, Arterial Blood Partial Pressure O2 53.0L, Arterial Blood HCO3 28.5H, Arterial Blood Oxygen Saturation 84.6*L, Arterial Blood Base Excess 1.4, Alton Test Positive 05/26/20 05:05: POC Whole Blood Glucose 154H Height (Feet): 5 Height (Inches): 10.00 Weight (Pounds): 168 General Appearance: no apparent distress, alert, mild distress EENT: PERRL/EOMI, normal ENT inspection Neck: non-tender, normal alignment Cardiovascular: regularly irregular, no JVD, tachycardia Respiratory/Chest: lungs clear, normal breath sounds, other - On BiPAP Abdomen: non tender, soft, other - G-tube Extremities: normal range of motion, non-tender Edema: no edema noted Arm (L), no edema noted Arm (R), no edema noted Leg (L), no edema noted Leg (R), no edema noted Pedal (L), no edema noted Pedal (R), no edema noted 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 Benitez is a 69-year-old male past medical history of lung cancer, G-tube dependence, A. fib, hypertension who presents for respiratory failure. A: #Acute hypoxic respiratory failure status post BiPAP #Acute encephalopathy likely secondary to hypoxiastable #Atrial fibrillation with rapid ventricular response on blood thinner 2/2 CAP versus PE #Acute on ?chronic decompensated heart failure 2/2 tachyarrhythmia induced cardiomyopathy versus PE #Community-acquired pneumonia #History of lung cancer #Essential hypertension #G-tube dependent P: Currently on BiPAP, wean off as tolerated ABG reviewed: pH within normal limits, hypoxia improved Systolic blood pressure stable, no indication for pressor support at this time Keep MAP greater than 65 Preliminary echo report showing normal EF, RSVP 25, and undetermined diastolic Chest x-ray today shows moderate pulmonary congestion, cardiomegaly We will broaden antibiotics to vancomycin and cefepime, continue doxycycline Follow-up repeat blood cultures, urinalysis given increased leukocytosis and inflammatory markers. No diarrhea Follow-up CTA to rule out PE: Etiology of respiratory failure and A. fib unsure if true CHF exacerbation need to rule out intraparenchymal diseases and possible PE Continue Lasix 40 mg IV twice daily Continue metoprolol 25 mg twice daily continue home Eliquis 5 mg twice daily Consult Dr. Akers, pulmonology, recs appreciated Consult Dr. Zamudio, cardiology, recs appreciated CM CODE STATUS: Full GI: Home omeprazole Diet: G-tube feeds DVT prophylaxis: Eliquis Dispo: Pending stabilization of respiratory failure Time spent on this encounter was 41 minutes which included 25 minutes of counseling and care coordination. Review of ABG, need for pressor support, vent/noninvasive PPV reviewed by me and along with discussion with pulmonology and cardiology. I discussed with the nurse at bedside. Time of note may not reflect time patient was seen. Gabino Alexander D.O May 26, 2020 10:18
[2020-05-26] MEDS ORDERED: Vancomycin 2gm/D5W 550ml IVPB ONE ×4 (11:00)
[2020-05-26 11:02] LABS: APPEARANCE,URINE CLEAR; BILIRUBIN, URINE NEGATIVE (NEGATIVE); COLOR,URINE PALE YELLOW; GLUCOSE, URINE (UA) NEGATIVE (NEGATIVE); KETONES,URINE NEGATIVE (NEGATIVE); LEUKOCYTE ESTERASE ,URINE NEGATIVE (NEGATIVE); NITRITE,URINE NEGATIVE (NEGATIVE); PH,URINE 6 (4.5-8.0); PROTEIN,URINE 1+ (NEGATIVE); UROBILINOGEN,URINE NORMAL MG/DL (0.0-1.0)
[2020-05-26] MEDS: dilTIAZem Premix 125mg/125ml 125 ML IVPB SCH (13:38)
--- NOTE | 2020-05-26 17:54 | Surgery Progress Note ---
Surgery Progress Note Subjective Additional Comments on NC and high flow comfortable states is well no n/v on drip Objective Last 24 Hour Vital Signs Date Time Temp Pulse Resp B/P (MAP) Pulse Ox O2 Delivery O2 Flow Rate FiO2 05/26/20 15:45 119 23 101/58 (72) 92 05/26/20 15:30 109 24 129/54 (79) 95 05/26/20 15:15 110 22 109/63 (78) 94 05/26/20 15:00 110 20 115/53 (73) 91 05/26/20 14:15 105 15 101/57 (72) 93 05/26/20 14:00 104 19 108/52 (70) 91 05/26/20 13:30 104 15 107/56 (73) 90 05/26/20 13:15 100 21 126/74 (91) 89 05/26/20 13:00 95 High Flow 40.0 100 05/26/20 13:00 98 22 131/62 (85) 88 05/26/20 12:45 102 22 116/54 (74) 89 05/26/20 12:30 88 25 114/51 (72) 86 05/26/20 12:22 93 23 110/51 (70) 84 05/26/20 12:19 95 23 136/121 (126) 88 05/26/20 12:00 Bi-pap 05/26/20 12:00 113 05/26/20 12:00 97.8 89 20 118/52 (74) 92 05/26/20 11:45 93 25 113/69 (84) 93 05/26/20 11:30 89 24 112/69 (83) 96 05/26/20 11:15 88 19 103/59 (74) 95 05/26/20 11:00 82 17 115/55 (75) 94 05/26/20 10:45 94 High Flow 40.0 100 05/26/20 10:35 15.0 05/26/20 10:15 80 18 102/64 (77) 99 05/26/20 10:00 84 22 119/85 (96) 99 05/26/20 09:45 78 21 111/75 (87) 98 05/26/20 09:30 83 24 116/78 (91) 95 05/26/20 09:15 82 25 132/77 (95) 94 05/26/20 09:00 75 23 115/93 (100) 99 05/26/20 08:45 97 19 109/84 (92) 100 05/26/20 08:30 111 25 114/61 (78) 100 05/26/20 08:16 115 127/101 05/26/20 08:00 Bi-pap 05/26/20 08:00 97.8 107 21 127/101 (110) 100 05/26/20 08:00 100 05/26/20 08:00 113 05/26/20 07:15 100 Bi-Pap 100 05/26/20 07:15 124 32 100 100 05/26/20 07:00 105 30 91/58 (69) 95 05/26/20 06:00 116 29 129/82 (98) 98 05/26/20 05:30 104 25 103/68 (80) 98 05/26/20 05:00 109 21 100/76 (84) 90 05/26/20 04:00 98.0 99 19 120/89 (99) 84 05/26/20 04:00 113 05/26/20 04:00 Bi-pap 100.0 05/26/20 03:15 110 34 99 80 05/26/20 03:00 119 22 131/69 (89) 93 05/26/20 02:00 112 23 128/69 (88) 05/26/20 01:00 118 21 134/118 (123) 05/26/20 00:00 166 05/26/20 00:00 110 19 112/93 (99) 100 05/26/20 00:00 Bi-pap 100.0 05/25/20 23:33 121 32 98 100 05/25/20 23:00 101 22 120/102 (108) 97 05/25/20 22:00 105 24 124/74 (91) 95 05/25/20 21:00 137 21 106/73 (84) 99 05/25/20 20:14 137 100/59 05/25/20 20:00 99.0 139 19 100/59 (73) 100 05/25/20 20:00 Bi-pap 100.0 05/25/20 20:00 168 05/25/20 19:11 132 31 99 100 05/25/20 19:10 99 Bi-Pap 100 05/25/20 19:00 140 23 114/68 (83) 100 05/25/20 18:00 126 26 119/71 (87) 100 I&O Intake and Output 05/25/20 05/26/20 19:00 07:00 Intake Total 295 ml 305.83 ml Output Total 815 ml 1575 ml Balance -520 ml -1269.17 ml Intake Free Water 100 ml IV Total 165 ml 185.83 ml Other 30 ml 120 ml Output Urine Total 815 ml 1575 ml # Bowel Movements 1 Dressing: saturated Cardiovascular: RSR Respiratory: decreased breath sounds Abdomen: non-tender, present bowel sounds Extremities: no edema, no tenderness, no cyanosis, other Laboratory Tests Test 05/26/20 04:30 05/26/20 05:01 05/26/20 05:05 05/26/20 10:00 White Blood Count 15.4 K/UL (4.8-10.8) H Red Blood Count 4.66 M/UL (4.70-6.10) L Hemoglobin 13.3 G/DL (14.2-18.0) L Hematocrit 43.9 % (42.0-52.0) Mean Corpuscular Volume 94 FL (80-99) Mean Corpuscular Hemoglobin 28.5 PG (27.0-31.0) Mean Corpuscular Hemoglobin Concent 30.3 G/DL (32.0-36.0) L Red Cell Distribution Width 13.8 % (11.6-14.8) Platelet Count 307 K/UL (150-450) Mean Platelet Volume 8.3 FL (6.5-10.1) Neutrophils (%) (Auto) 69.8 % (45.0-75.0) Lymphocytes (%) (Auto) 12.5 % (20.0-45.0) L Monocytes (%) (Auto) 14.3 % (1.0-10.0) H Eosinophils (%) (Auto) 0.1 % (0.0-3.0) Basophils (%) (Auto) 3.3 % (0.0-2.0) H Sodium Level 138 MMOL/L (136-145) Potassium Level 3.6 MMOL/L (3.5-5.1) Chloride Level 99 MMOL/L (98-107) Carbon Dioxide Level 31 MMOL/L (21-32) Anion Gap 8 mmol/L (5-15) Blood Urea Nitrogen 18 mg/dL (7-18) Creatinine 0.9 MG/DL (0.55-1.30) Estimat Glomerular Filtration Rate > 60 mL/min (>60) Glucose Level 133 MG/DL (74-106) H Calcium Level 9.0 MG/DL (8.5-10.1) Magnesium Level 2.0 MG/DL (1.8-2.4) C-Reactive Protein, Quantitative 13.0 mg/dL (0.00-0.90) H Pro-B-Type Natriuretic Peptide 1639 pg/mL (0-125) H Arterial Blood pH 7.325 (7.350-7.450) Arterial Blood Partial Pressure CO2 56.0 mmHg (35.0-45.0) *H Arterial Blood Partial Pressure O2 53.0 mmHg (75.0-100.0) L Arterial Blood HCO3 28.5 mmol/L (22.0-26.0) H Arterial Blood Oxygen Saturation 84.6 % (95-100) *L Arterial Blood Base Excess 1.4 (-2-2) [place] Test Positive POC Whole Blood Glucose 154 MG/DL (74-106) H Urine Color Pale yellow Urine Appearance Clear Urine pH 6 (4.5-8.0) Urine Specific [place] 1.015 (1.005-1.035) Urine Protein 1+ (NEGATIVE) H Urine Glucose (UA) Negative (NEGATIVE) Urine Ketones Negative (NEGATIVE) Urine Blood Negative (NEGATIVE) Urine Nitrite Negative (NEGATIVE) Urine Bilirubin Negative (NEGATIVE) Urine Urobilinogen Normal MG/DL (0.0-1.0) Urine Leukocyte Esterase Negative (NEGATIVE) Urine RBC 0-2 /HPF (0 - 0) H Urine WBC 0-2 /HPF (0 - 0) Urine Squamous Epithelial Cells Occasional /LPF Urine Bacteria Few /HPF (NONE) Urine Yeast Few /HPF (NONE) H Plan Problems: (1) Shortness of breath (2) Lung cancer (3) A-fib (4) CHF exacerbation (5) G tube feedings (6) Cellulitis of scrotum Assessment & Plan: Patient identified admission to have scrotal cellulitis with fluid-filled large scrotum in the posterior aspect of the perineum there is a opening proximally 1 cm raised 1 cm with cellulitis and induration around it no fluctuance no abscess. Wound washed. Swab Betadine. Dressings applied. IV antibiotics. Will monitor with physical examination to ensure not worsening. May form phlegmon into abscess requiring I&D but currently no fluid collection requiring I&D. Will monitor to ensure healing. Thank you for letting present patient's care will follow with recommendations abd exam improved scrotum stable requiring bipap cxr noted leukocytosis cont abx fluids respiratory support DAILY ESTIMATED NEEDS: Needs based on Pulmonary, Cancer, bedbound 72.6kg 23-28 kcals/kg 3250-0000 total kcals 1-1.5 g protein/kg 73-109 g total protein Fluid per MD, on lasix NUTRITION DIAGNOSIS: Swallowing difficulty r/t dysphagia as evidenced by pt is PEG dep. CURRENT TF: (NPO) ENTERAL NUTRITION RECOMMENDATIONS: As medically able, rec Glucerna 1.5 goal of 50ml/hr x24 hrs to provide 1200ml, 1800 kcal, 99g pro, 911ml free H2O - As medically able, rec carb control (elev BG 127-165), low free fluid formula(elev BNP, on lasix, edematous). - Start Glucerna 1.5 @20ml/hr for 6 hrs, advance as tolerated 10ml/hr q4-6 hrs to goal. - Flush per MD/ pt is on lasix - HOB over 30 degrees ADDITIONAL RECOMMENDATIONS: 1) TF recs above when medically appropriate 2) Rec bed side BG checks; am labs w/ elev BG (127-165). 3) Monitor lytes, need or renal formula (elev phos, elev Mg) 4) W/ lasix, add B-complex 1 daily 5) Maintain calibrated bed scale wts (7) Hypoxia Roman Pickens May 26, 2020 17:54
[2020-05-26] MEDS ORDERED: dilTIAZem Premix 125mg/125ml 125 ML IVPB SCH (19:45)
--- NOTE | 2020-05-26 19:58 | Cardiology Progress Note ---
Assessment/Plan Problem List: (1) Lung cancer (2) Shortness of breath (3) A-fib (4) CHF exacerbation (5) Hypoxia Status: deteriorating Status Narrative Pt w/ declining respiratory status - ? infection, aspiration or edema. Also in rapidly conducted AF which is likely contributing to his deterioration Troponin is mildly elevated - suspect demand ischemia in setting of hypoxia and rapid AF Pt also w/ hx of lung CA- uncertain type, stage Assessment/Plan Continue iv lasix diuresis. - will give 40 mg iv today. Will give digoxin iv x1 and change diltiazem to amiodarone iv for rate control. continue iv abx, bipap vent per ID/ pulmonary. Repeat cxr, abg pending Subjective ROS Limited/Unobtainable: Yes Subjective Cardiology for Dr. Zamudio Events noted. Pt agitated, on bipap vent Objective Last 24 Hour Vital Signs Date Time Temp Pulse Resp B/P (MAP) Pulse Ox O2 Delivery O2 Flow Rate FiO2 05/26/20 19:10 142 30 94 100 05/26/20 19:10 93 Bi-Pap 100 05/26/20 18:45 143 28 115/82 (93) 94 05/26/20 18:30 140 31 120/65 (83) 87 05/26/20 18:18 142 29 109/73 (85) 84 05/26/20 18:00 139 27 113/73 (86) 88 05/26/20 17:45 139 26 112/63 (79) 86 05/26/20 17:30 138 29 123/103 (110) 96 05/26/20 17:15 127 22 112/67 (82) 98 05/26/20 17:00 133 25 117/52 (73) 90 05/26/20 16:45 128 30 134/78 (96) 88 05/26/20 16:30 122 24 114/82 (93) 100 05/26/20 16:15 122 27 126/110 (115) 96 05/26/20 16:00 15.0 05/26/20 16:00 98.0 113 26 114/68 (83) 91 05/26/20 16:00 124 05/26/20 16:00 Bi-pap 05/26/20 15:45 119 23 101/58 (72) 92 05/26/20 15:30 109 24 129/54 (79) 95 05/26/20 15:15 110 22 109/63 (78) 94 05/26/20 15:00 110 20 115/53 (73) 91 05/26/20 14:15 105 15 101/57 (72) 93 05/26/20 14:00 104 19 108/52 (70) 91 05/26/20 13:30 104 15 107/56 (73) 90 05/26/20 13:15 100 21 126/74 (91) 89 05/26/20 13:00 95 High Flow 40.0 100 05/26/20 13:00 98 22 131/62 (85) 88 05/26/20 12:45 102 22 116/54 (74) 89 05/26/20 12:30 88 25 114/51 (72) 86 05/26/20 12:22 93 23 110/51 (70) 84 05/26/20 12:19 95 23 136/121 (126) 88 05/26/20 12:00 Bi-pap 05/26/20 12:00 113 05/26/20 12:00 97.8 89 20 118/52 (74) 92 05/26/20 11:45 93 25 113/69 (84) 93 05/26/20 11:30 89 24 112/69 (83) 96 05/26/20 11:15 88 19 103/59 (74) 95 05/26/20 11:00 82 17 115/55 (75) 94 05/26/20 10:45 94 High Flow 40.0 100 05/26/20 10:35 15.0 05/26/20 10:15 80 18 102/64 (77) 99 05/26/20 10:00 84 22 119/85 (96) 99 05/26/20 09:45 78 21 111/75 (87) 98 05/26/20 09:30 83 24 116/78 (91) 95 05/26/20 09:15 82 25 132/77 (95) 94 05/26/20 09:00 75 23 115/93 (100) 99 05/26/20 08:45 97 19 109/84 (92) 100 05/26/20 08:30 111 25 114/61 (78) 100 05/26/20 08:16 115 127/101 05/26/20 08:00 Bi-pap 05/26/20 08:00 97.8 107 21 127/101 (110) 100 05/26/20 08:00 100 05/26/20 08:00 113 05/26/20 07:15 100 Bi-Pap 100 05/26/20 07:15 124 32 100 100 05/26/20 07:00 105 30 91/58 (69) 95 05/26/20 06:00 116 29 129/82 (98) 98 05/26/20 05:30 104 25 103/68 (80) 98 05/26/20 05:00 109 21 100/76 (84) 90 05/26/20 04:00 98.0 99 19 120/89 (99) 84 05/26/20 04:00 113 05/26/20 04:00 Bi-pap 100.0 05/26/20 03:15 110 34 99 80 05/26/20 03:00 119 22 131/69 (89) 93 05/26/20 02:00 112 23 128/69 (88) 05/26/20 01:00 118 21 134/118 (123) 05/26/20 00:00 166 05/26/20 00:00 110 19 112/93 (99) 100 05/26/20 00:00 Bi-pap 100.0 05/25/20 23:33 121 32 98 100 05/25/20 23:00 101 22 120/102 (108) 97 05/25/20 22:00 105 24 124/74 (91) 95 05/25/20 21:00 137 21 106/73 (84) 99 05/25/20 20:14 137 100/59 05/25/20 20:00 99.0 139 19 100/59 (73) 100 05/25/20 20:00 Bi-pap 100.0 05/25/20 20:00 168 General Appearance: WD/WN, moderate distress EENT: PERRL/EOMI, other - bipap vent Neck: no JVD Rhythm: Afib Cardiovascular: tachycardia, irregularly irregular Respiratory/Chest: other - tachypneic, shallow respirations. bilat rhonchi Abdomen: non tender, soft Extremities: no swelling Intake and Output 05/25/20 05/26/20 19:00 07:00 Intake Total 295 ml 305.83 ml Output Total 815 ml 1575 ml Balance -520 ml -1269.17 ml Intake Free Water 100 ml IV Total 165 ml 185.83 ml Other 30 ml 120 ml Output Urine Total 815 ml 1575 ml # Bowel Movements 1 Laboratory Tests Test 05/26/20 04:30 05/26/20 05:01 05/26/20 05:05 05/26/20 10:00 White Blood Count 15.4 K/UL (4.8-10.8) H Red Blood Count 4.66 M/UL (4.70-6.10) L Hemoglobin 13.3 G/DL (14.2-18.0) L Hematocrit 43.9 % (42.0-52.0) Mean Corpuscular Volume 94 FL (80-99) Mean Corpuscular Hemoglobin 28.5 PG (27.0-31.0) Mean Corpuscular Hemoglobin Concent 30.3 G/DL (32.0-36.0) L Red Cell Distribution Width 13.8 % (11.6-14.8) Platelet Count 307 K/UL (150-450) Mean Platelet Volume 8.3 FL (6.5-10.1) Neutrophils (%) (Auto) 69.8 % (45.0-75.0) Lymphocytes (%) (Auto) 12.5 % (20.0-45.0) L Monocytes (%) (Auto) 14.3 % (1.0-10.0) H Eosinophils (%) (Auto) 0.1 % (0.0-3.0) Basophils (%) (Auto) 3.3 % (0.0-2.0) H Sodium Level 138 MMOL/L (136-145) Potassium Level 3.6 MMOL/L (3.5-5.1) Chloride Level 99 MMOL/L (98-107) Carbon Dioxide Level 31 MMOL/L (21-32) Anion Gap 8 mmol/L (5-15) Blood Urea Nitrogen 18 mg/dL (7-18) Creatinine 0.9 MG/DL (0.55-1.30) Estimat Glomerular Filtration Rate > 60 mL/min (>60) Glucose Level 133 MG/DL (74-106) H Calcium Level 9.0 MG/DL (8.5-10.1) Magnesium Level 2.0 MG/DL (1.8-2.4) C-Reactive Protein, Quantitative 13.0 mg/dL (0.00-0.90) H Pro-B-Type Natriuretic Peptide 1639 pg/mL (0-125) H Arterial Blood pH 7.325 (7.350-7.450) Arterial Blood Partial Pressure CO2 56.0 mmHg (35.0-45.0) *H Arterial Blood Partial Pressure O2 53.0 mmHg (75.0-100.0) L Arterial Blood HCO3 28.5 mmol/L (22.0-26.0) H Arterial Blood Oxygen Saturation 84.6 % (95-100) *L Arterial Blood Base Excess 1.4 (-2-2) [place] Test Positive POC Whole Blood Glucose 154 MG/DL (74-106) H Urine Color Pale yellow Urine Appearance Clear Urine pH 6 (4.5-8.0) Urine Specific [place] 1.015 (1.005-1.035) Urine Protein 1+ (NEGATIVE) H Urine Glucose (UA) Negative (NEGATIVE) Urine Ketones Negative (NEGATIVE) Urine Blood Negative (NEGATIVE) Urine Nitrite Negative (NEGATIVE) Urine Bilirubin Negative (NEGATIVE) Urine Urobilinogen Normal MG/DL (0.0-1.0) Urine Leukocyte Esterase Negative (NEGATIVE) Urine RBC 0-2 /HPF (0 - 0) H Urine WBC 0-2 /HPF (0 - 0) Urine Squamous Epithelial Cells Occasional /LPF Urine Bacteria Few /HPF (NONE) Urine Yeast Few /HPF (NONE) Julia Yanes MD May 26, 2020 19:58
[2020-05-26] MEDS ORDERED: Digoxin 0.5mg/2ml Inj IVP SCH (20:00)
[2020-05-26] MEDS: Dyna-Hex 2% Top Sol 2oz TOPIC SCH (20:09)
--- NOTE | 2020-05-26 20:20 | Diagnostic Imaging Report ---
EXAM: Portable chest x-ray INDICATION: Shortness of breath. COMPARISON: Same day chest radiograph at 856 Frontal portable Findings/impression: Single limited portable frontal view of the chest demonstrates unchanged support lines and tubes. Mild interval increase in conspicuity of the medial right lower airspace consolidation versus vascular congestion. Small right pleural effusion. No clinically significant pneumothorax. No other significant interval change.
[2020-05-26] MEDS ORDERED: Amiodarone 900 MG in D5W 500ml 482 ML IV SCH (21:00)
--- NOTE | 2020-05-26 22:33 | Infectious Diseases Prog Note ---
Assessment/Plan Assessment/Plan Full consult dictated: A) 1) cap, sepsis, leukocytosis, fevers 2) covid-19 testing negative 3) pmh noted 4) allergies - nkda P) 1) vancomycin, cefepime and flagyl 2) check cultures, labs and chest x-ray 3) icu care 4) will f/u 5) thank you Subjective Allergies: Coded Allergies: No Known Allergies (Unverified , 05/23/20) Objective Last 24 Hour Vital Signs Date Time Temp Pulse Resp B/P (MAP) Pulse Ox O2 Delivery O2 Flow Rate FiO2 05/26/20 22:00 117 27 113/64 (80) 100 05/26/20 21:45 127 29 138/82 (100) 99 05/26/20 21:30 155 28 141/67 (91) 05/26/20 21:15 156 30 146/63 (90) 05/26/20 21:00 15.0 100 05/26/20 21:00 156 30 123/72 (89) 99 05/26/20 20:58 165 115/69 05/26/20 20:45 168 28 104/81 (89) 99 05/26/20 20:30 160 30 136/68 (90) 99 05/26/20 20:15 149 31 104/71 (82) 98 05/26/20 20:09 151 05/26/20 20:00 98.8 149 30 140/98 (112) 96 05/26/20 20:00 Bi-pap 05/26/20 20:00 133 05/26/20 19:10 142 30 94 100 05/26/20 19:10 93 Bi-Pap 100 05/26/20 18:45 143 28 115/82 (93) 94 05/26/20 18:30 140 31 120/65 (83) 87 05/26/20 18:18 142 29 109/73 (85) 84 05/26/20 18:00 139 27 113/73 (86) 88 05/26/20 17:45 139 26 112/63 (79) 86 05/26/20 17:30 138 29 123/103 (110) 96 05/26/20 17:15 127 22 112/67 (82) 98 05/26/20 17:00 133 25 117/52 (73) 90 05/26/20 16:45 128 30 134/78 (96) 88 05/26/20 16:30 122 24 114/82 (93) 100 05/26/20 16:15 122 27 126/110 (115) 96 05/26/20 16:00 15.0 05/26/20 16:00 98.0 113 26 114/68 (83) 91 05/26/20 16:00 124 05/26/20 16:00 Bi-pap 05/26/20 15:45 119 23 101/58 (72) 92 05/26/20 15:30 109 24 129/54 (79) 95 05/26/20 15:15 110 22 109/63 (78) 94 05/26/20 15:00 110 20 115/53 (73) 91 05/26/20 14:15 105 15 101/57 (72) 93 05/26/20 14:00 104 19 108/52 (70) 91 05/26/20 13:30 104 15 107/56 (73) 90 05/26/20 13:15 100 21 126/74 (91) 89 05/26/20 13:00 95 High Flow 40.0 100 05/26/20 13:00 98 22 131/62 (85) 88 05/26/20 12:45 102 22 116/54 (74) 89 05/26/20 12:30 88 25 114/51 (72) 86 05/26/20 12:22 93 23 110/51 (70) 84 05/26/20 12:19 95 23 136/121 (126) 88 05/26/20 12:00 Bi-pap 05/26/20 12:00 113 05/26/20 12:00 97.8 89 20 118/52 (74) 92 05/26/20 11:45 93 25 113/69 (84) 93 05/26/20 11:30 89 24 112/69 (83) 96 05/26/20 11:15 88 19 103/59 (74) 95 05/26/20 11:00 82 17 115/55 (75) 94 05/26/20 10:45 94 High Flow 40.0 100 05/26/20 10:35 15.0 05/26/20 10:15 80 18 102/64 (77) 99 05/26/20 10:00 84 22 119/85 (96) 99 05/26/20 09:45 78 21 111/75 (87) 98 05/26/20 09:30 83 24 116/78 (91) 95 05/26/20 09:15 82 25 132/77 (95) 94 05/26/20 09:00 75 23 115/93 (100) 99 05/26/20 08:45 97 19 109/84 (92) 100 05/26/20 08:30 111 25 114/61 (78) 100 05/26/20 08:16 115 127/101 05/26/20 08:00 Bi-pap 05/26/20 08:00 97.8 107 21 127/101 (110) 100 05/26/20 08:00 100 05/26/20 08:00 113 05/26/20 07:15 100 Bi-Pap 100 05/26/20 07:15 124 32 100 100 05/26/20 07:00 105 30 91/58 (69) 95 05/26/20 06:00 116 29 129/82 (98) 98 05/26/20 05:30 104 25 103/68 (80) 98 05/26/20 05:00 109 21 100/76 (84) 90 05/26/20 04:00 98.0 99 19 120/89 (99) 84 05/26/20 04:00 113 05/26/20 04:00 Bi-pap 100.0 05/26/20 03:15 110 34 99 80 05/26/20 03:00 119 22 131/69 (89) 93 05/26/20 02:00 112 23 128/69 (88) 05/26/20 01:00 118 21 134/118 (123) 05/26/20 00:00 166 05/26/20 00:00 110 19 112/93 (99) 100 05/26/20 00:00 Bi-pap 100.0 05/25/20 23:33 121 32 98 100 05/25/20 23:00 101 22 120/102 (108) 97 Height (Feet): 5 Height (Inches): 10.00 Weight (Pounds): 168 Laboratory Tests Test 05/26/20 04:30 05/26/20 05:01 05/26/20 05:05 05/26/20 10:00 White Blood Count 15.4 K/UL (4.8-10.8) H Red Blood Count 4.66 M/UL (4.70-6.10) L Hemoglobin 13.3 G/DL (14.2-18.0) L Hematocrit 43.9 % (42.0-52.0) Mean Corpuscular Volume 94 FL (80-99) Mean Corpuscular Hemoglobin 28.5 PG (27.0-31.0) Mean Corpuscular Hemoglobin Concent 30.3 G/DL (32.0-36.0) L Red Cell Distribution Width 13.8 % (11.6-14.8) Platelet Count 307 K/UL (150-450) Mean Platelet Volume 8.3 FL (6.5-10.1) Neutrophils (%) (Auto) 69.8 % (45.0-75.0) Lymphocytes (%) (Auto) 12.5 % (20.0-45.0) L Monocytes (%) (Auto) 14.3 % (1.0-10.0) H Eosinophils (%) (Auto) 0.1 % (0.0-3.0) Basophils (%) (Auto) 3.3 % (0.0-2.0) H Sodium Level 138 MMOL/L (136-145) Potassium Level 3.6 MMOL/L (3.5-5.1) Chloride Level 99 MMOL/L (98-107) Carbon Dioxide Level 31 MMOL/L (21-32) Anion Gap 8 mmol/L (5-15) Blood Urea Nitrogen 18 mg/dL (7-18) Creatinine 0.9 MG/DL (0.55-1.30) Estimat Glomerular Filtration Rate > 60 mL/min (>60) Glucose Level 133 MG/DL (74-106) H Calcium Level 9.0 MG/DL (8.5-10.1) Magnesium Level 2.0 MG/DL (1.8-2.4) C-Reactive Protein, Quantitative 13.0 mg/dL (0.00-0.90) H Pro-B-Type Natriuretic Peptide 1639 pg/mL (0-125) H Arterial Blood pH 7.325 (7.350-7.450) Arterial Blood Partial Pressure CO2 56.0 mmHg (35.0-45.0) *H Arterial Blood Partial Pressure O2 53.0 mmHg (75.0-100.0) L Arterial Blood HCO3 28.5 mmol/L (22.0-26.0) H Arterial Blood Oxygen Saturation 84.6 % (95-100) *L Arterial Blood Base Excess 1.4 (-2-2) [place] Test Positive POC Whole Blood Glucose 154 MG/DL (74-106) H Urine Color Pale yellow Urine Appearance Clear Urine pH 6 (4.5-8.0) Urine Specific [place] 1.015 (1.005-1.035) Urine Protein 1+ (NEGATIVE) H Urine Glucose (UA) Negative (NEGATIVE) Urine Ketones Negative (NEGATIVE) Urine Blood Negative (NEGATIVE) Urine Nitrite Negative (NEGATIVE) Urine Bilirubin Negative (NEGATIVE) Urine Urobilinogen Normal MG/DL (0.0-1.0) Urine Leukocyte Esterase Negative (NEGATIVE) Urine RBC 0-2 /HPF (0 - 0) H Urine WBC 0-2 /HPF (0 - 0) Urine Squamous Epithelial Cells Occasional /LPF Urine Bacteria Few /HPF (NONE) Urine Yeast Few /HPF (NONE) H Test 05/26/20 19:52 Arterial Blood pH 7.475 (7.350-7.450) Arterial Blood Partial Pressure CO2 36.2 mmHg (35.0-45.0) Arterial Blood Partial Pressure O2 80.5 mmHg (75.0-100.0) Arterial Blood HCO3 26.1 mmol/L (22.0-26.0) H Arterial Blood Oxygen Saturation 96.0 % (95-100) Arterial Blood Base Excess 2.6 (-2-2) H [place] Test Positive Current Medications Medications (Trade) Dose Ordered Sig/Joan Route PRN Reason Start Time Stop Time Status Last Admin Dose Admin Amiodarone HCl 900 mg/Dextrose 500 ml @ 0 mls/hr Q24H IV 05/26/20 21:00 05/27/20 20:59 05/26/20 20:59 Apixaban (Eliquis) 5 mg BID GT 05/23/20 18:00 08/21/20 17:59 05/26/20 17:18 Cefepime HCl 2 gm/ Dextrose 55 ml @ 110 mls/hr Q8HR IVPB 05/26/20 10:00 06/02/20 09:59 05/26/20 21:48 Chlorhexidine Gluconate (Zohreh-Hex 2%) 1 applic DAILY@2000 TOPIC 05/23/20 20:00 08/21/20 19:59 05/26/20 20:09 Dextrose (Dextrose 50%) 25 ml Q30M PRN IV Hypoglycemia 05/23/20 05:15 08/21/20 05:14 Dextrose (Dextrose 50%) 50 ml Q30M PRN IV Hypoglycemia 05/23/20 05:15 08/21/20 05:14 Furosemide (Lasix) 40 mg EVERY 12 HOURS IV 05/23/20 11:00 06/22/20 10:59 05/26/20 20:58 Lorazepam (Ativan 2mg/ml 1ml) 1 mg BID PRN IV For Anxiety 05/26/20 10:30 06/02/20 10:29 Metoprolol Tartrate (Lopressor) 50 mg Q12HR GT 05/23/20 21:10 08/21/20 21:09 05/26/20 20:58 Metronidazole 100 ml @ 100 mls/hr Q8HR IVPB 05/26/20 22:00 06/02/20 21:59 05/26/20 21:48 Oxycodone HCl (Roxicodone) 5 mg Q4H PRN GT pain 4-10 05/23/20 22:00 05/30/20 21:59 05/26/20 20:22 Vancomycin HCl 250 ml @ 166.667 mls/hr Q12H IVPB 05/26/20 23:00 05/31/20 22:59 Vancomycin HCl ([facility] pharmacy to dose) 1 ea DAILY PRN MISC Per rx protocol 05/26/20 08:00 06/25/20 07:59 Aury Varela MD May 26, 2020 22:33
[2020-05-26] MEDS: Vancomycin 1.25gm/250ml Premix IVPB SCH (23:09)
[2020-05-27] VITALS (50 sets, daily range): BP systolic 84–138; BP diastolic 47–109
--- NOTE | 2020-05-27 02:00 | Consultation ---
DATE OF CONSULTATION: 05/26/2020 INFECTIOUS DISEASE CONSULTATION CONSULTING PHYSICIAN: Aury Varela M.D. ATTENDING PHYSICIAN: Chirag Jean Baptiste M.D. REFERRING PHYSICIAN: Gabino Alexander D.O. REASON FOR CONSULTATION: Pneumonia, sepsis, leukocytosis, fevers. CHIEF COMPLAINT: The patient's chief complaint coming into the hospital is hypoxia. HISTORY OF PRESENT ILLNESS: This is a 69-year-old male, who I believe comes from an extended care facility. The patient presents to [facility] with hypoxia. From the outside facility, it looks like his saturation was in the 70s. The patient was started on antibiotics. The patient is on high-flow oxygen in the ICU unit currently. He was on BiPAP also. The patient also has leukocytosis and fevers. He is not a very good historian because of hypoxia. He is responsive however. Blood cultures negative to date and UA is unremarkable. Chest x-ray shows a right-sided pneumonia. Infectious Disease consultation was requested for antibiotic management in the patient with refractory pneumonia. COVID testing was negative. The patient is on Vanco, cefepime, and Flagyl, which I believe were started today. MAR was noted. Orders were noted. Notes were reviewed. REVIEW OF SYSTEMS: CONSTITUTIONAL: The patient has generalized fatigue, weakness. He is on BiPAP and high-flow O2. Review of systems otherwise, he did come in with fevers. Currently, no fever, chills, night sweats, and no weight loss mentioned. HEAD AND NECK: No thrush, dysphagia, neck stiffness. CARDIAC: No chest pain or palpitations GASTROINTESTINAL: No nausea, vomiting, or diarrhea. No abdominal pain GENITOURINARY: He does have a Adorno. No CVA tenderness. No mention of dysuria or frequency. PULMONARY: He has cough, congestion, shortness of breath. He has no hemoptysis. No significant secretions. SKIN: No rash or itching. EXTREMITIES: No extremity pain. No joint pain. NEUROLOGIC: No seizures. Generalized fatigue. No rash, itching. PAST MEDICAL HISTORY: The patient has a past medical history of following. The patient has a past medical history of lung cancer, history of atrial fibrillation, history of G-tube dependency, history of hypertension, dysphagia. He aspiration risk also. He has a history of heart failure also. He has a history of pacemaker also. ALLERGIES: He has no known drug allergies. No antibiotic allergies. SOCIAL HISTORY: Currently negative for smoking, alcohol, or drug abuse. FAMILY HISTORY: Noncontributory. Negative for tuberculosis or cancer. MEDICATIONS: Upon reviewing the MAR, he is on following medications. He is on vancomycin. He is on metronidazole. He is on amiodarone, vanco, Rocephin, and Flagyl. He has been on furosemide, digoxin, lorazepam, oxycodone, metoprolol, chlorhexidine, apixaban, furosemide. Outside medications noted and reconciliated. PHYSICAL EXAMINATION: VITAL SIGNS: He had fevers earlier from yesterday. Temperature is 100.0, but currently vital signs are as follows, pulse rate 117, respiratory rate 27, blood pressure 113/64, saturation 100% high-flow at 15 liters, FiO2 100%, and T-max 100.0. Pulse rate has been as high as 155. GENERAL: Short of breath. He is on high-flow oxygen. He has been on BiPAP, but he is responsive. HEAD AND NECK: Oral exam, no thrush. Eye exam, no icterus. Normocephalic. Neck is supple. No JVD. HEART: Regular. No gallop or murmur. Occasionally irregular. ABDOMEN: Soft. Positive bowel sounds. Nontender. LUNGS: Bilateral rhonchi, rales, and crackles. SKIN: No rash or dermatitis. MUSCULOSKELETAL: No effusion. No joint pain. Legs are without cellulitis. PERIPHERAL VASCULAR: No gangrene or cyanosis. : He has a Adorno. Urine is slightly cloudy. LINES: Line sites without phlebitis. NEUROLOGIC: Generalized weakness. Alert and responsive. Nonfocal. LABORATORY AND DIAGNOSTIC DATA: Laboratory data as follows, creatinine 0.9. White count 15.4, hemoglobin 13.3. UA had 0 to 2 white cells. COVID testing negative. Blood cultures negative. MRSA, VRE screens negative. IMAGING STUDIES: Chest x-ray with what looks like a right medial lower airspace consolidation with effusion. This is increased. Sputum culture has been ordered. Blood cultures are negative. I believe a CT scan of the chest has also been ordered pending results. ASSESSMENT AND PLAN: 1. The patient has what looks like community-acquired pneumonia, sepsis, leukocytosis, and fevers. The patient has right-sided pneumonia consistent with community-acquired pneumonia. COVID testing is negative. Continue antibiotics, vanco, Rocephin, and Flagyl for Gram-positive, Gram-negative anaerobic coverage. Continue vanco, Rocephin, and Flagyl for community-acquired pneumonia, sepsis, leukocytosis, fevers. Check sputum culture. Check CT scan of the chest. Check followup laboratories. Pulmonary is following also. Monitor the patient's hypoxia. The patient in the ICU currently. Check followup laboratories, chest x-ray. 2. Hypoxia. Treatment per Pulmonary Medicine. 3. High-flow O2. 4. Dysphagia, also aspiration pneumonia risk. 5. Anemia. 6. Lung cancer. 7. Atrial fibrillation. 8. G-tube. 9. Dysphagia. 10. Hypertension. 11. No known drug allergies. 12. Social history is negative. 13. Family history is noncontributory. 14. MAR is noted. 15. Case was discussed with RN. 16. Continue treatment per primary consultants. 17. The patient is also at risk for aspiration pneumonia in addition to community-acquired pneumonia. Aury Varela M.D. DR: GERA JOB#: [id number] CC:
[2020-05-27] MEDS: Cefepime 2gm in D5W 55ml IVPB SCH ×3 (06:12→21:57)
[2020-05-27 06:23] LABS: BASOPHILS % (AUTO) 1.5 % (0.0-2.0); EOSINOPHILS % (AUTO) 0.1 % (0.0-3.0); HEMATOCRIT 40.9 % (42.0-52.0); HEMOGLOBIN 12.7 G/DL (14.2-18.0); LYMPHOCYTES % (AUTO) 7.9 % (20.0-45.0); MEAN CORPUSCULAR VOLUME 94 FL (80-99); MONOCYTES % (AUTO) 12.4 % (1.0-10.0); NEUTROPHILS % (AUTO) 78.1 % (45.0-75.0); PLATELET COUNT 330 K/UL (150-450); RED BLOOD COUNT 4.37 M/UL (4.70-6.10); RED CELL DISTRIBUTION WIDTH 14.3 % (11.6-14.8); WHITE BLOOD COUNT 17.2 K/UL (4.8-10.8)
[2020-05-27 06:44] LABS: ALANINE AMINOTRANSFERASE 20 U/L (12-78); ALBUMIN 2.4 G/DL (3.4-5.0); ALBUMIN/GLOBULIN RATIO 0.4 (1.0-2.7); ALKALINE PHOSPHATASE 74 U/L (46-116); ASPARTATE AMINO TRANSFERASE 30 U/L (15-37); BILIRUBIN,TOTAL 0.7 MG/DL (0.2-1.0); BLOOD UREA NITROGEN 17 mg/dL (7-18); CALCIUM 8.6 MG/DL (8.5-10.1); CARBON DIOXIDE 29 MMOL/L (21-32); CHLORIDE 97 MMOL/L (98-107); POTASSIUM 3.3 MMOL/L (3.5-5.1); SODIUM 136 MMOL/L (136-145)
[2020-05-27] MEDS: Eliquis 5mg tablet GT SCH ×2 (08:22→18:23)
[2020-05-27] MEDS: Metoprolol Tartrate 50mg tab GT SCH (08:23)
--- NOTE | 2020-05-27 10:19 | Pulmonology Progress Note ---
Subjective ROS Limited/Unobtainable: Yes Interval Events: Failed NRBM; back on BiPAP Constitutional: Reports: no symptoms HEENT: Repors: no symptoms Respiratory: Reports: no symptoms Cardiovascular: Reports: no symptoms Gastrointestinal/Abdominal: Reports: no symptoms Genitourinary: Reports: no symptoms Neurologic: Reports: no symptoms Allergies: Coded Allergies: No Known Allergies (Unverified , 05/23/20) Objective Last 24 Hour Vital Signs Date Time Temp Pulse Resp B/P (MAP) Pulse Ox O2 Delivery O2 Flow Rate FiO2 05/27/20 08:23 131 131/97 05/27/20 08:00 140 05/27/20 07:05 100 Bi-Pap 90 05/27/20 07:05 140 33 100 90 05/27/20 07:00 135 19 118/61 (80) 100 05/27/20 06:30 133 19 125/87 (100) 100 05/27/20 06:00 135 26 101/63 (76) 100 05/27/20 05:30 128 28 118/61 (80) 100 05/27/20 05:00 126 25 114/55 (74) 100 05/27/20 04:30 123 16 110/53 (72) 98 05/27/20 04:00 100 05/27/20 04:00 Bi-pap 05/27/20 04:00 130 05/27/20 04:00 98.2 117 25 115/53 (73) 100 05/27/20 03:30 119 27 105/57 (73) 100 05/27/20 03:00 108 21 105/47 (66) 100 05/27/20 02:51 103 32 100 100 05/27/20 02:30 114 21 116/73 (87) 100 05/27/20 02:00 112 18 109/74 (86) 100 05/27/20 01:30 109 19 101/55 (70) 100 05/27/20 01:00 98 Bi-Pap 100 05/27/20 01:00 111 29 103/55 (71) 05/27/20 00:30 115 21 84/60 (68) 05/27/20 00:00 15.0 100 05/27/20 00:00 Bi-pap 05/27/20 00:00 98.0 115 24 94/61 (72) 05/27/20 00:00 114 05/26/20 23:00 109 23 133/76 (95) 100 05/26/20 22:44 114 31 99 100 05/26/20 22:30 107 27 118/88 (98) 100 05/26/20 22:00 117 27 113/64 (80) 100 05/26/20 21:45 127 29 138/82 (100) 99 05/26/20 21:30 155 28 141/67 (91) 05/26/20 21:15 156 30 146/63 (90) 05/26/20 21:00 15.0 100 05/26/20 21:00 156 30 123/72 (89) 99 05/26/20 20:58 165 115/69 05/26/20 20:45 168 28 104/81 (89) 99 05/26/20 20:30 160 30 136/68 (90) 99 05/26/20 20:15 149 31 104/71 (82) 98 05/26/20 20:09 151 05/26/20 20:00 98.8 149 30 140/98 (112) 96 05/26/20 20:00 Bi-pap 05/26/20 20:00 133 05/26/20 19:10 142 30 94 100 05/26/20 19:10 93 Bi-Pap 100 05/26/20 18:45 143 28 115/82 (93) 94 05/26/20 18:30 140 31 120/65 (83) 87 05/26/20 18:18 142 29 109/73 (85) 84 05/26/20 18:00 139 27 113/73 (86) 88 05/26/20 17:45 139 26 112/63 (79) 86 05/26/20 17:30 138 29 123/103 (110) 96 05/26/20 17:15 127 22 112/67 (82) 98 05/26/20 17:00 133 25 117/52 (73) 90 05/26/20 16:45 128 30 134/78 (96) 88 05/26/20 16:30 122 24 114/82 (93) 100 05/26/20 16:15 122 27 126/110 (115) 96 05/26/20 16:00 15.0 05/26/20 16:00 98.0 113 26 114/68 (83) 91 05/26/20 16:00 124 05/26/20 16:00 Bi-pap 05/26/20 15:45 119 23 101/58 (72) 92 05/26/20 15:30 109 24 129/54 (79) 95 05/26/20 15:15 110 22 109/63 (78) 94 05/26/20 15:00 110 20 115/53 (73) 91 05/26/20 14:15 105 15 101/57 (72) 93 05/26/20 14:00 104 19 108/52 (70) 91 05/26/20 13:30 104 15 107/56 (73) 90 05/26/20 13:15 100 21 126/74 (91) 89 05/26/20 13:00 95 High Flow 40.0 100 05/26/20 13:00 98 22 131/62 (85) 88 05/26/20 12:45 102 22 116/54 (74) 89 05/26/20 12:30 88 25 114/51 (72) 86 05/26/20 12:22 93 23 110/51 (70) 84 05/26/20 12:19 95 23 136/121 (126) 88 05/26/20 12:00 Bi-pap 05/26/20 12:00 113 05/26/20 12:00 97.8 89 20 118/52 (74) 92 05/26/20 11:45 93 25 113/69 (84) 93 05/26/20 11:30 89 24 112/69 (83) 96 05/26/20 11:15 88 19 103/59 (74) 95 05/26/20 11:00 82 17 115/55 (75) 94 05/26/20 10:45 94 High Flow 40.0 100 05/26/20 10:35 15.0 Intake and Output 05/26/20 05/27/20 19:00 07:00 Intake Total 911.0 ml 400.558 ml Output Total 530 ml 1070 ml Balance 381.0 ml -669.442 ml IV Total 881.0 ml 400.558 ml Other 30 ml Output Urine Total 530 ml 1070 ml General Appearance: no acute distress HEENT: normocephalic Respiratory: chest wall non-tender, decreased breath sounds Cardiovascular: normal peripheral pulses, normal rate Abdomen: normal bowel sounds Microbiology Date/Time Source Procedure Growth Status 05/26/20 10:00 Urine,Clean Catch Urine Culture - Preliminary Gram Negative Pancho Resulted Laboratory Tests 05/26/20 19:52: Arterial Blood pH 7.475H, Arterial Blood Partial Pressure CO2 36.2, Arterial Blood Partial Pressure O2 80.5, Arterial Blood HCO3 26.1H, Arterial Blood Oxygen Saturation 96.0, Arterial Blood Base Excess 2.6H, Alton Test Positive 05/26/20 23:56: POC Whole Blood Glucose [Pending] 05/27/20 05:21: White Blood Count 17.2H, Red Blood Count 4.37L, Hemoglobin 12.7L, Hematocrit 40.9L, Mean Corpuscular Volume 94, Mean Corpuscular Hemoglobin 29.0, Mean Corpuscular Hemoglobin Concent 31.0L, Red Cell Distribution Width 14.3, Platelet Count 330, Mean Platelet Volume 7.6, Neutrophils (%) (Auto) 78.1H, Lymphocytes (%) (Auto) 7.9L, Monocytes (%) (Auto) 12.4H, Eosinophils (%) (Auto) 0.1, Basophils (%) (Auto) 1.5, Sodium Level 136, Potassium Level 3.3L, Chloride Level 97L, Carbon Dioxide Level 29, Blood Urea Nitrogen 17, Creatinine 1.0, Estimat Glomerular Filtration Rate > 60, Glucose Level 153H, Calcium Level 8.6, Magnesium Level 1.7L, Total Bilirubin 0.7, Aspartate Amino Transf (AST/SGOT) 30, Alanine Aminotransferase (ALT/SGPT) 20, Alkaline Phosphatase 74, Total Protein 8.1, Albumin 2.4L, Globulin 5.7, Albumin/Globulin Ratio 0.4L Current Medications Medications (Trade) Dose Ordered Sig/Joan Route PRN Reason Start Time Stop Time Status Last Admin Dose Admin Amiodarone HCl 900 mg/Dextrose 500 ml @ 0 mls/hr Q24H IV 05/26/20 21:00 05/27/20 20:59 05/26/20 20:59 Apixaban (Eliquis) 5 mg BID GT 05/23/20 18:00 08/21/20 17:59 05/27/20 08:22 Cefepime HCl 2 gm/ Dextrose 55 ml @ 110 mls/hr Q8HR IVPB 05/26/20 10:00 06/02/20 09:59 05/27/20 06:12 Chlorhexidine Gluconate (Zohreh-Hex 2%) 1 applic DAILY@2000 TOPIC 05/23/20 20:00 08/21/20 19:59 05/26/20 20:09 Dextrose (Dextrose 50%) 25 ml Q30M PRN IV Hypoglycemia 05/23/20 05:15 08/21/20 05:14 Dextrose (Dextrose 50%) 50 ml Q30M PRN IV Hypoglycemia 05/23/20 05:15 08/21/20 05:14 Furosemide (Lasix) 40 mg EVERY 12 HOURS IV 05/23/20 11:00 06/22/20 10:59 05/27/20 08:23 Lorazepam (Ativan 2mg/ml 1ml) 1 mg BID PRN IV For Anxiety 05/26/20 10:30 06/02/20 10:29 Metoprolol Tartrate (Lopressor) 50 mg Q12HR GT 05/23/20 21:10 08/21/20 21:09 05/27/20 08:23 Metronidazole 100 ml @ 100 mls/hr Q8HR IVPB 05/26/20 22:00 06/02/20 21:59 05/27/20 06:11 Oxycodone HCl (Roxicodone) 5 mg Q4H PRN GT pain 4-10 05/23/20 22:00 05/30/20 21:59 05/26/20 20:22 Vancomycin HCl 250 ml @ 166.667 mls/hr Q12H IVPB 05/26/20 23:00 05/31/20 22:59 05/26/20 23:09 Vancomycin HCl (Vanco pharmacy to dose) 1 ea DAILY PRN MISC Per rx protocol 05/26/20 08:00 06/25/20 07:59 Assessment/Plan Assessment/Plan IMPRESSION: 1. Decompensated congestive heart failure. 2. Permanent pacemaker. 3. Right pleural effusion. 4. History of lung cancer. 5. Hypoxic respiratory failure. DISCUSSION: 1. Agree with diuresis; is consistently negative per day last 3-4 days 2. Unable to wean off BiPAP 3. COVID-19 testing is negative. 4. I will follow carefully. Kirstie Membreno Omar Syed MD May 27, 2020 10:19
--- NOTE | 2020-05-27 10:34 | General Progress Note ---
Subjective ROS Limited/Unobtainable: Yes - Patient more confused today still on BiPAP unable to truly answer questions appropriately Allergies: Coded Allergies: No Known Allergies (Unverified , 05/23/20) Subjective No acute overnight events. Still tachycardic, start amiodarone drip cardiology yesterday. Heart rates 140s to 160. Blood pressure sustaining. Still on BiPAP unable to wean off. We will start tube feeds. Objective Last 24 Hour Vital Signs Date Time Temp Pulse Resp B/P (MAP) Pulse Ox O2 Delivery O2 Flow Rate FiO2 05/27/20 08:23 131 131/97 05/27/20 08:00 140 22 131/91 (104) 100 05/27/20 08:00 140 05/27/20 07:05 100 Bi-Pap 90 05/27/20 07:05 140 33 100 90 05/27/20 07:00 135 19 118/61 (80) 100 05/27/20 06:30 133 19 125/87 (100) 100 05/27/20 06:00 135 26 101/63 (76) 100 05/27/20 05:30 128 28 118/61 (80) 100 05/27/20 05:00 126 25 114/55 (74) 100 05/27/20 04:30 123 16 110/53 (72) 98 05/27/20 04:00 100 05/27/20 04:00 Bi-pap 05/27/20 04:00 130 05/27/20 04:00 98.2 117 25 115/53 (73) 100 05/27/20 03:30 119 27 105/57 (73) 100 05/27/20 03:00 108 21 105/47 (66) 100 05/27/20 02:51 103 32 100 100 05/27/20 02:30 114 21 116/73 (87) 100 05/27/20 02:00 112 18 109/74 (86) 100 05/27/20 01:30 109 19 101/55 (70) 100 05/27/20 01:00 98 Bi-Pap 100 05/27/20 01:00 111 29 103/55 (71) 05/27/20 00:30 115 21 84/60 (68) 05/27/20 00:00 15.0 100 05/27/20 00:00 Bi-pap 05/27/20 00:00 98.0 115 24 94/61 (72) 05/27/20 00:00 114 05/26/20 23:00 109 23 133/76 (95) 100 05/26/20 22:44 114 31 99 100 05/26/20 22:30 107 27 118/88 (98) 100 05/26/20 22:00 117 27 113/64 (80) 100 05/26/20 21:45 127 29 138/82 (100) 99 05/26/20 21:30 155 28 141/67 (91) 05/26/20 21:15 156 30 146/63 (90) 05/26/20 21:00 15.0 100 05/26/20 21:00 156 30 123/72 (89) 99 05/26/20 20:58 165 115/69 05/26/20 20:45 168 28 104/81 (89) 99 05/26/20 20:30 160 30 136/68 (90) 99 05/26/20 20:15 149 31 104/71 (82) 98 05/26/20 20:09 151 05/26/20 20:00 98.8 149 30 140/98 (112) 96 05/26/20 20:00 Bi-pap 05/26/20 20:00 133 05/26/20 19:10 142 30 94 100 05/26/20 19:10 93 Bi-Pap 100 05/26/20 18:45 143 28 115/82 (93) 94 05/26/20 18:30 140 31 120/65 (83) 87 05/26/20 18:18 142 29 109/73 (85) 84 05/26/20 18:00 139 27 113/73 (86) 88 05/26/20 17:45 139 26 112/63 (79) 86 05/26/20 17:30 138 29 123/103 (110) 96 05/26/20 17:15 127 22 112/67 (82) 98 05/26/20 17:00 133 25 117/52 (73) 90 05/26/20 16:45 128 30 134/78 (96) 88 05/26/20 16:30 122 24 114/82 (93) 100 05/26/20 16:15 122 27 126/110 (115) 96 05/26/20 16:00 15.0 05/26/20 16:00 98.0 113 26 114/68 (83) 91 05/26/20 16:00 124 05/26/20 16:00 Bi-pap 05/26/20 15:45 119 23 101/58 (72) 92 05/26/20 15:30 109 24 129/54 (79) 95 05/26/20 15:15 110 22 109/63 (78) 94 05/26/20 15:00 110 20 115/53 (73) 91 05/26/20 14:15 105 15 101/57 (72) 93 05/26/20 14:00 104 19 108/52 (70) 91 05/26/20 13:30 104 15 107/56 (73) 90 05/26/20 13:15 100 21 126/74 (91) 89 05/26/20 13:00 95 High Flow 40.0 100 05/26/20 13:00 98 22 131/62 (85) 88 05/26/20 12:45 102 22 116/54 (74) 89 05/26/20 12:30 88 25 114/51 (72) 86 05/26/20 12:22 93 23 110/51 (70) 84 05/26/20 12:19 95 23 136/121 (126) 88 05/26/20 12:00 Bi-pap 05/26/20 12:00 113 05/26/20 12:00 97.8 89 20 118/52 (74) 92 05/26/20 11:45 93 25 113/69 (84) 93 05/26/20 11:30 89 24 112/69 (83) 96 05/26/20 11:15 88 19 103/59 (74) 95 05/26/20 11:00 82 17 115/55 (75) 94 05/26/20 10:45 94 High Flow 40.0 100 05/26/20 10:35 15.0 Intake and Output 05/26/20 05/27/20 19:00 07:00 Intake Total 911.0 ml 400.558 ml Output Total 530 ml 1070 ml Balance 381.0 ml -669.442 ml IV Total 881.0 ml 400.558 ml Other 30 ml Output Urine Total 530 ml 1070 ml Laboratory Tests 05/26/20 19:52: Arterial Blood pH 7.475H, Arterial Blood Partial Pressure CO2 36.2, Arterial Blood Partial Pressure O2 80.5, Arterial Blood HCO3 26.1H, Arterial Blood Oxygen Saturation 96.0, Arterial Blood Base Excess 2.6H, Alton Test Positive 05/26/20 23:56: POC Whole Blood Glucose [Pending] 05/27/20 05:21: White Blood Count 17.2H, Red Blood Count 4.37L, Hemoglobin 12.7L, Hematocrit 40.9L, Mean Corpuscular Volume 94, Mean Corpuscular Hemoglobin 29.0, Mean Corpuscular Hemoglobin Concent 31.0L, Red Cell Distribution Width 14.3, Platelet Count 330, Mean Platelet Volume 7.6, Neutrophils (%) (Auto) 78.1H, Lymphocytes (%) (Auto) 7.9L, Monocytes (%) (Auto) 12.4H, Eosinophils (%) (Auto) 0.1, Basophils (%) (Auto) 1.5, Sodium Level 136, Potassium Level 3.3L, Chloride Level 97L, Carbon Dioxide Level 29, Blood Urea Nitrogen 17, Creatinine 1.0, Estimat Glomerular Filtration Rate > 60, Glucose Level 153H, Calcium Level 8.6, Magnesium Level 1.7L, Total Bilirubin 0.7, Aspartate Amino Transf (AST/SGOT) 30, Alanine Aminotransferase (ALT/SGPT) 20, Alkaline Phosphatase 74, Total Protein 8.1, Albumin 2.4L, Globulin 5.7, Albumin/Globulin Ratio 0.4L Height (Feet): 5 Height (Inches): 10.00 Weight (Pounds): 168 General Appearance: alert, confused, mild distress EENT: PERRL/EOMI, normal ENT inspection Neck: normal alignment, supple Cardiovascular: regularly irregular, no JVD, tachycardia Respiratory/Chest: lungs clear, normal breath sounds Abdomen: non tender, soft, other - G-tube Genitourinary/Rectal: other - Adorno Extremities: normal range of motion Edema: no edema noted Arm (L), no edema noted Arm (R), no edema noted Leg (L), no edema noted Leg (R), no edema noted Pedal (L), no edema noted Pedal (R), no edema noted 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 Benitez is a 69-year-old male past medical history of lung cancer, G-tube dependence, A. fib, hypertension who presents for respiratory failure. A: #Acute hypoxic respiratory failure status post BiPAP #Acute encephalopathy likely secondary to hypoxiastable #Atrial fibrillation with rapid ventricular response on blood thinner 2/2 CAP versus PE #Acute on ?chronic decompensated heart failure 2/2 tachyarrhythmia induced cardiomyopathy versus PE #Community-acquired pneumonia #History of lung cancer #Essential hypertension #G-tube dependent P: Currently on BiPAP, wean off as tolerated ABG reviewed: pH within normal limits, hypoxia improved Systolic blood pressure stable, no indication for pressor support at this time Keep MAP greater than 65 Started on the amiodarone per cardiology, still significantly tachycardic Preliminary echo report showing normal EF, RSVP 25, and undetermined diastolic Chest x-ray today shows moderate pulmonary congestion, cardiomegaly Continue Vanco, cefepime, Flagyl for possible right lower lobe pneumonia Follow-up repeat blood cultures, urinalysis given increased leukocytosis and inflammatory markers. No diarrhea Follow-up CTA to rule out PE: Etiology of respiratory failure and A. fib unsure if true CHF exacerbation need to rule out intraparenchymal diseases and p ossible PE Continue Lasix 40 mg IV twice daily Continue metoprolol 25 mg twice daily continue home Eliquis 5 mg twice daily Start tube feeds Nutritional consult Consult Dr. Akers, pulmonology, recs appreciated Consult Dr. Zamudio, cardiology, recs appreciated CM CODE STATUS: Full GI: Home omeprazole Diet: G-tube feeds DVT prophylaxis: Eliquis Dispo: Pending stabilization of respiratory failure Time spent on this encounter was 45 minutes which included 25 minutes of counseling and care coordination. Review of ABG, need for pressor support, vent/noninvasive PPV reviewed by me and along with discussion with pulmonology and cardiology. I discussed with the nurse at bedside. Time of note may not reflect time patient was seen. Gabino Alexander D.O May 27, 2020 10:34
--- NOTE | 2020-05-27 10:49 | Cardiology Report ---
APPROVED REPORT EXAM: Two-dimensional and M-mode echocardiogram with Doppler and color Doppler. 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 Normal left ventricular chamber size, systolic function to extent visualized. Left ventricular ejection fraction grossly estimated to be normal. Study quality precludes accurate assessment of regional wall motion. No left ventricular hypertrophy. No evidence of pericardial effusion. Left cardiac chamber sizes appear to be within normal limits. Right cardiac chambers are not well visualized. Focal aortic valve sclerosis with adequate cusp excursion. Thickened mitral valve leaflets with normal excursion. Mitral annulus and aortic root calcification. Pulmonic valve not well visualized. Normal tricuspid valve structure. Pacemaker wire present in the right side chambers. A color flow and spectral Doppler study was performed and revealed: No aortic regurgitation. Trace to mild mitral regurgitation. LV diastolic function undetermined. Trace to mild tricuspid regurgitation. Tricuspid systolic velocities suggests peak right ventricular systolic pressure of 26 mmHg. No pulmonic regurgitation present.
[2020-05-27] MEDS: Vancomycin 1.25gm/250ml Premix IVPB SCH (11:36)
[2020-05-27] MEDS: oxyCODONE 5mg IR tab GT PRN (13:00)
[2020-05-27] MEDS ORDERED: Amikacin Rx to dose MISC PRN (13:30)
--- NOTE | 2020-05-27 14:04 | Infectious Diseases Prog Note ---
Assessment/Plan Assessment/Plan A) 1) pneumonia , sepsis, leukocytosis, fevers, ? gram neg uti 2) covid-19 testing negative 3) pmh noted 4) allergies - nkda P) 1) vancomycin, cefepime and flagyl, amikacin 2) check cultures, labs and chest x-ray 3) icu care 4) will f/u 5) d/w RN Subjective Constitutional: Denies: fever HEENT: Reports: congestion Respiratory: Reports: shortness of breath Cardiovascular: Denies: chest pain Gastrointestinal/Abdominal: Denies: nausea, vomiting Allergies: Coded Allergies: No Known Allergies (Unverified , 05/23/20) Objective Last 24 Hour Vital Signs Date Time Temp Pulse Resp B/P (MAP) Pulse Ox O2 Delivery O2 Flow Rate FiO2 05/27/20 12:30 94 24 99/72 (81) 100 05/27/20 12:15 100 29 100/56 (71) 100 05/27/20 12:00 Bi-pap 05/27/20 12:00 99.1 98 27 106/67 (80) 100 05/27/20 12:00 94 05/27/20 11:05 90 31 93 100 05/27/20 11:00 91 24 120/62 (81) 98 05/27/20 10:30 87 25 138/79 (98) 96 05/27/20 10:15 91 22 109/58 (75) 05/27/20 10:00 91 25 119/74 (89) 98 05/27/20 09:45 93 19 113/55 (74) 05/27/20 09:30 94 23 110/59 (76) 05/27/20 09:15 106 19 100/57 (71) 05/27/20 09:00 90 05/27/20 09:00 97.8 131 20 102/76 (85) 100 05/27/20 08:23 131 131/97 05/27/20 08:00 140 22 131/91 (104) 100 05/27/20 08:00 140 05/27/20 08:00 Bi-pap 05/27/20 08:00 100 05/27/20 07:05 100 Bi-Pap 90 05/27/20 07:05 140 33 100 90 05/27/20 07:00 135 19 118/61 (80) 100 05/27/20 06:30 133 19 125/87 (100) 100 05/27/20 06:00 135 26 101/63 (76) 100 05/27/20 05:30 128 28 118/61 (80) 100 05/27/20 05:00 126 25 114/55 (74) 100 05/27/20 04:30 123 16 110/53 (72) 98 05/27/20 04:00 100 05/27/20 04:00 Bi-pap 05/27/20 04:00 130 05/27/20 04:00 98.2 117 25 115/53 (73) 100 05/27/20 03:30 119 27 105/57 (73) 100 05/27/20 03:00 108 21 105/47 (66) 100 05/27/20 02:51 103 32 100 100 05/27/20 02:30 114 21 116/73 (87) 100 05/27/20 02:00 112 18 109/74 (86) 100 05/27/20 01:30 109 19 101/55 (70) 100 05/27/20 01:00 98 Bi-Pap 100 05/27/20 01:00 111 29 103/55 (71) 05/27/20 00:30 115 21 84/60 (68) 05/27/20 00:00 15.0 100 05/27/20 00:00 Bi-pap 05/27/20 00:00 98.0 115 24 94/61 (72) 05/27/20 00:00 114 05/26/20 23:00 109 23 133/76 (95) 100 05/26/20 22:44 114 31 99 100 05/26/20 22:30 107 27 118/88 (98) 100 05/26/20 22:00 117 27 113/64 (80) 100 05/26/20 21:45 127 29 138/82 (100) 99 05/26/20 21:30 155 28 141/67 (91) 05/26/20 21:15 156 30 146/63 (90) 05/26/20 21:00 15.0 100 05/26/20 21:00 156 30 123/72 (89) 99 05/26/20 20:58 165 115/69 05/26/20 20:45 168 28 104/81 (89) 99 05/26/20 20:30 160 30 136/68 (90) 99 05/26/20 20:15 149 31 104/71 (82) 98 05/26/20 20:09 151 05/26/20 20:00 98.8 149 30 140/98 (112) 96 05/26/20 20:00 Bi-pap 05/26/20 20:00 133 05/26/20 19:10 142 30 94 100 05/26/20 19:10 93 Bi-Pap 100 05/26/20 18:45 143 28 115/82 (93) 94 05/26/20 18:30 140 31 120/65 (83) 87 05/26/20 18:18 142 29 109/73 (85) 84 05/26/20 18:00 139 27 113/73 (86) 88 05/26/20 17:45 139 26 112/63 (79) 86 05/26/20 17:30 138 29 123/103 (110) 96 05/26/20 17:15 127 22 112/67 (82) 98 05/26/20 17:00 133 25 117/52 (73) 90 05/26/20 16:45 128 30 134/78 (96) 88 05/26/20 16:30 122 24 114/82 (93) 100 05/26/20 16:15 122 27 126/110 (115) 96 05/26/20 16:00 15.0 05/26/20 16:00 98.0 113 26 114/68 (83) 91 05/26/20 16:00 124 05/26/20 16:00 Bi-pap 05/26/20 15:45 119 23 101/58 (72) 92 05/26/20 15:30 109 24 129/54 (79) 95 05/26/20 15:15 110 22 109/63 (78) 94 05/26/20 15:00 110 20 115/53 (73) 91 05/26/20 14:15 105 15 101/57 (72) 93 Height (Feet): 5 Height (Inches): 10.00 Weight (Pounds): 168 HEENT: normocephalic, atraumatic Respiratory/Chest: crackles/rales, rhonchi - bilaterally Cardiovascular: normal rate, regular rhythm Abdomen: normal bowel sounds, soft, non tender, no organomegaly Microbiology Date/Time Source Procedure Growth Status 05/26/20 10:00 Urine,Clean Catch Urine Culture - Preliminary Gram Negative Pancho Resulted Laboratory Tests Test 05/26/20 19:52 05/26/20 23:56 05/27/20 05:21 Arterial Blood pH 7.475 (7.350-7.450) Arterial Blood Partial Pressure CO2 36.2 mmHg (35.0-45.0) Arterial Blood Partial Pressure O2 80.5 mmHg (75.0-100.0) Arterial Blood HCO3 26.1 mmol/L (22.0-26.0) H Arterial Blood Oxygen Saturation 96.0 % (95-100) Arterial Blood Base Excess 2.6 (-2-2) H Alton Test Positive POC Whole Blood Glucose Pending White Blood Count 17.2 K/UL (4.8-10.8) H Red Blood Count 4.37 M/UL (4.70-6.10) L Hemoglobin 12.7 G/DL (14.2-18.0) L Hematocrit 40.9 % (42.0-52.0) L Mean Corpuscular Volume 94 FL (80-99) Mean Corpuscular Hemoglobin 29.0 PG (27.0-31.0) Mean Corpuscular Hemoglobin Concent 31.0 G/DL (32.0-36.0) L Red Cell Distribution Width 14.3 % (11.6-14.8) Platelet Count 330 K/UL (150-450) Mean Platelet Volume 7.6 FL (6.5-10.1) Neutrophils (%) (Auto) 78.1 % (45.0-75.0) H Lymphocytes (%) (Auto) 7.9 % (20.0-45.0) L Monocytes (%) (Auto) 12.4 % (1.0-10.0) H Eosinophils (%) (Auto) 0.1 % (0.0-3.0) Basophils (%) (Auto) 1.5 % (0.0-2.0) Sodium Level 136 MMOL/L (136-145) Potassium Level 3.3 MMOL/L (3.5-5.1) L Chloride Level 97 MMOL/L (98-107) L Carbon Dioxide Level 29 MMOL/L (21-32) Blood Urea Nitrogen 17 mg/dL (7-18) Creatinine 1.0 MG/DL (0.55-1.30) Estimat Glomerular Filtration Rate > 60 mL/min (>60) Glucose Level 153 MG/DL (74-106) H Calcium Level 8.6 MG/DL (8.5-10.1) Magnesium Level 1.7 MG/DL (1.8-2.4) L Total Bilirubin 0.7 MG/DL (0.2-1.0) Aspartate Amino Transf (AST/SGOT) 30 U/L (15-37) Alanine Aminotransferase (ALT/SGPT) 20 U/L (12-78) Alkaline Phosphatase 74 U/L (46-116) Total Protein 8.1 G/DL (6.4-8.2) Albumin 2.4 G/DL (3.4-5.0) L Globulin 5.7 g/dL Albumin/Globulin Ratio 0.4 (1.0-2.7) L Current Medications Medications (Trade) Dose Ordered Sig/Joan Route PRN Reason Start Time Stop Time Status Last Admin Dose Admin Amikacin Protocol (Amikacin pharmacy to dose) 1 ea DAILY PRN MISC Per rx protocol 05/27/20 13:30 06/26/20 13:29 Amikacin Sulfate 1000 mg/Sodium Chloride 114 ml @ 114 mls/hr Q24H IV 05/27/20 15:00 06/03/20 14:59 Amiodarone HCl 900 mg/Dextrose 500 ml @ 0 mls/hr Q24H IV 05/26/20 21:00 05/27/20 20:59 05/26/20 20:59 Apixaban (Eliquis) 5 mg BID GT 05/23/20 18:00 08/21/20 17:59 05/27/20 08:22 Cefepime HCl 2 gm/ Dextrose 55 ml @ 110 mls/hr Q8HR IVPB 05/26/20 10:00 06/02/20 09:59 05/27/20 06:12 Chlorhexidine Gluconate (Zohreh-Hex 2%) 1 applic DAILY@2000 TOPIC 05/23/20 20:00 08/21/20 19:59 05/26/20 20:09 Dextrose (Dextrose 50%) 25 ml Q30M PRN IV Hypoglycemia 05/23/20 05:15 08/21/20 05:14 Dextrose (Dextrose 50%) 50 ml Q30M PRN IV Hypoglycemia 05/23/20 05:15 08/21/20 05:14 Furosemide (Lasix) 40 mg EVERY 12 HOURS IV 05/23/20 11:00 06/22/20 10:59 05/27/20 08:23 Lorazepam (Ativan 2mg/ml 1ml) 1 mg BID PRN IV For Anxiety 05/26/20 10:30 06/02/20 10:29 Metoprolol Tartrate (Lopressor) 50 mg Q12HR GT 05/23/20 21:10 08/21/20 21:09 05/27/20 08:23 Metronidazole 100 ml @ 100 mls/hr Q8HR IVPB 05/26/20 22:00 06/02/20 21:59 05/27/20 06:11 Oxycodone HCl (Roxicodone) 5 mg Q4H PRN GT pain 4-10 05/23/20 22:00 05/30/20 21:59 05/27/20 13:00 Vancomycin HCl 250 ml @ 166.667 mls/hr Q12H IVPB 05/26/20 23:00 05/31/20 22:59 05/27/20 11:36 Vancomycin HCl (Vanco pharmacy to dose) 1 ea DAILY PRN MISC Per rx protocol 05/26/20 08:00 06/25/20 07:59 Aury Varela MD May 27, 2020 14:04
--- NOTE | 2020-05-27 14:10 | Surgery Progress Note ---
Surgery Progress Note Subjective Additional Comments on bipap again leukocytosis cxr noted comfortable otherwise Objective Last 24 Hour Vital Signs Date Time Temp Pulse Resp B/P (MAP) Pulse Ox O2 Delivery O2 Flow Rate FiO2 05/27/20 13:45 100 24 109/53 (71) 100 05/27/20 13:30 105 23 119/72 (88) 97 05/27/20 13:15 100 24 102/66 (78) 100 05/27/20 13:00 97 24 120/109 (113) 100 05/27/20 12:30 94 24 99/72 (81) 100 05/27/20 12:15 100 29 100/56 (71) 100 05/27/20 12:00 Bi-pap 05/27/20 12:00 99.1 98 27 106/67 (80) 100 05/27/20 12:00 94 05/27/20 11:05 90 31 93 100 05/27/20 11:00 91 24 120/62 (81) 98 05/27/20 10:30 87 25 138/79 (98) 96 05/27/20 10:15 91 22 109/58 (75) 05/27/20 10:00 91 25 119/74 (89) 98 05/27/20 09:45 93 19 113/55 (74) 05/27/20 09:30 94 23 110/59 (76) 05/27/20 09:15 106 19 100/57 (71) 05/27/20 09:00 90 05/27/20 09:00 97.8 131 20 102/76 (85) 100 05/27/20 08:23 131 131/97 05/27/20 08:00 140 22 131/91 (104) 100 05/27/20 08:00 140 05/27/20 08:00 Bi-pap 05/27/20 08:00 100 05/27/20 07:05 100 Bi-Pap 90 05/27/20 07:05 140 33 100 90 05/27/20 07:00 135 19 118/61 (80) 100 05/27/20 06:30 133 19 125/87 (100) 100 05/27/20 06:00 135 26 101/63 (76) 100 05/27/20 05:30 128 28 118/61 (80) 100 05/27/20 05:00 126 25 114/55 (74) 100 11/23/20 04:30 123 16 110/53 (72) 98 05/27/20 04:00 100 05/27/20 04:00 Bi-pap 05/27/20 04:00 130 05/27/20 04:00 98.2 117 25 115/53 (73) 100 05/27/20 03:30 119 27 105/57 (73) 100 05/27/20 03:00 108 21 105/47 (66) 100 05/27/20 02:51 103 32 100 100 05/27/20 02:30 114 21 116/73 (87) 100 05/27/20 02:00 112 18 109/74 (86) 100 05/27/20 01:30 109 19 101/55 (70) 100 05/27/20 01:00 98 Bi-Pap 100 05/27/20 01:00 111 29 103/55 (71) 05/27/20 00:30 115 21 84/60 (68) 05/27/20 00:00 15.0 100 05/27/20 00:00 Bi-pap 05/27/20 00:00 98.0 115 24 94/61 (72) 05/27/20 00:00 114 05/26/20 23:00 109 23 133/76 (95) 100 05/26/20 22:44 114 31 99 100 05/26/20 22:30 107 27 118/88 (98) 100 05/26/20 22:00 117 27 113/64 (80) 100 05/26/20 21:45 127 29 138/82 (100) 99 05/26/20 21:30 155 28 141/67 (91) 05/26/20 21:15 156 30 146/63 (90) 05/26/20 21:00 15.0 100 05/26/20 21:00 156 30 123/72 (89) 99 05/26/20 20:58 165 115/69 05/26/20 20:45 168 28 104/81 (89) 99 05/26/20 20:30 160 30 136/68 (90) 99 05/26/20 20:15 149 31 104/71 (82) 98 05/26/20 20:09 151 05/26/20 20:00 98.8 149 30 140/98 (112) 96 05/26/20 20:00 Bi-pap 05/26/20 20:00 133 05/26/20 19:10 142 30 94 100 05/26/20 19:10 93 Bi-Pap 100 05/26/20 18:45 143 28 115/82 (93) 94 05/26/20 18:30 140 31 120/65 (83) 87 05/26/20 18:18 142 29 109/73 (85) 84 05/26/20 18:00 139 27 113/73 (86) 88 05/26/20 17:45 139 26 112/63 (79) 86 05/26/20 17:30 138 29 123/103 (110) 96 05/26/20 17:15 127 22 112/67 (82) 98 05/26/20 17:00 133 25 117/52 (73) 90 05/26/20 16:45 128 30 134/78 (96) 88 05/26/20 16:30 122 24 114/82 (93) 100 05/26/20 16:15 122 27 126/110 (115) 96 05/26/20 16:00 15.0 05/26/20 16:00 98.0 113 26 114/68 (83) 91 05/26/20 16:00 124 05/26/20 16:00 Bi-pap 05/26/20 15:45 119 23 101/58 (72) 92 05/26/20 15:30 109 24 129/54 (79) 95 05/26/20 15:15 110 22 109/63 (78) 94 05/26/20 15:00 110 20 115/53 (73) 91 05/26/20 14:15 105 15 101/57 (72) 93 I&O Intake and Output 05/26/20 05/27/20 18:59 06:59 Intake Total 918.5 ml 400.558 ml Output Total 575 ml 1125 ml Balance 343.5 ml -724.442 ml IV Total 888.5 ml 400.558 ml Other 30 ml Output Urine Total 575 ml 1125 ml Dressing: saturated Cardiovascular: RSR Respiratory: decreased breath sounds Abdomen: soft, non-tender, present bowel sounds Extremities: no edema, no tenderness, no cyanosis Laboratory Tests Test 05/26/20 19:52 05/26/20 23:56 05/27/20 05:21 Arterial Blood pH 7.475 (7.350-7.450) Arterial Blood Partial Pressure CO2 36.2 mmHg (35.0-45.0) Arterial Blood Partial Pressure O2 80.5 mmHg (75.0-100.0) Arterial Blood HCO3 26.1 mmol/L (22.0-26.0) H Arterial Blood Oxygen Saturation 96.0 % (95-100) Arterial Blood Base Excess 2.6 (-2-2) H Alton Test Positive POC Whole Blood Glucose Pending White Blood Count 17.2 K/UL (4.8-10.8) H Red Blood Count 4.37 M/UL (4.70-6.10) L Hemoglobin 12.7 G/DL (14.2-18.0) L Hematocrit 40.9 % (42.0-52.0) L Mean Corpuscular Volume 94 FL (80-99) Mean Corpuscular Hemoglobin 29.0 PG (27.0-31.0) Mean Corpuscular Hemoglobin Concent 31.0 G/DL (32.0-36.0) L Red Cell Distribution Width 14.3 % (11.6-14.8) Platelet Count 330 K/UL (150-450) Mean Platelet Volume 7.6 FL (6.5-10.1) Neutrophils (%) (Auto) 78.1 % (45.0-75.0) H Lymphocytes (%) (Auto) 7.9 % (20.0-45.0) L Monocytes (%) (Auto) 12.4 % (1.0-10.0) H Eosinophils (%) (Auto) 0.1 % (0.0-3.0) Basophils (%) (Auto) 1.5 % (0.0-2.0) Sodium Level 136 MMOL/L (136-145) Potassium Level 3.3 MMOL/L (3.5-5.1) L Chloride Level 97 MMOL/L (98-107) L Carbon Dioxide Level 29 MMOL/L (21-32) Blood Urea Nitrogen 17 mg/dL (7-18) Creatinine 1.0 MG/DL (0.55-1.30) Estimat Glomerular Filtration Rate > 60 mL/min (>60) Glucose Level 153 MG/DL (74-106) H Calcium Level 8.6 MG/DL (8.5-10.1) Magnesium Level 1.7 MG/DL (1.8-2.4) L Total Bilirubin 0.7 MG/DL (0.2-1.0) Aspartate Amino Transf (AST/SGOT) 30 U/L (15-37) Alanine Aminotransferase (ALT/SGPT) 20 U/L (12-78) Alkaline Phosphatase 74 U/L (46-116) Total Protein 8.1 G/DL (6.4-8.2) Albumin 2.4 G/DL (3.4-5.0) L Globulin 5.7 g/dL Albumin/Globulin Ratio 0.4 (1.0-2.7) L Plan Problems: (1) Shortness of breath (2) Lung cancer (3) A-fib (4) CHF exacerbation (5) G tube feedings (6) Cellulitis of scrotum Assessment & Plan: Patient identified admission to have scrotal cellulitis with fluid-filled large scrotum in the posterior aspect of the perineum there is a opening proximally 1 cm raised 1 cm with cellulitis and induration around it no fluctuance no abscess. Wound washed. Swab Betadine. Dressings applied. IV antibiotics. Will monitor with physical examination to ensure not worsening. May form phlegmon into abscess requiring I&D but currently no fluid collection requiring I&D. Will monitor to ensure healing. Thank you for letting present patient's care will follow with recommendations abd exam improved scrotum stable requiring bipap cxr noted leukocytosis cont abx fluids respiratory support DAILY ESTIMATED NEEDS: Needs based on Pulmonary, Cancer, bedbound 72.6kg 23-28 kcals/kg [id number] total kcals 1-1.5 g protein/kg 73-109 g total protein Fluid per MD, on lasix NUTRITION DIAGNOSIS: Swallowing difficulty r/t dysphagia as evidenced by pt is PEG dep. CURRENT TF: (NPO) ENTERAL NUTRITION RECOMMENDATIONS: As medically able, rec Glucerna 1.5 goal of 50ml/hr x24 hrs to provide 1200ml, 1800 kcal, 99g pro, 911ml free H2O - As medically able, rec carb control (elev BG 127-165), low free fluid formula(elev BNP, on lasix, edematous). - Start Glucerna 1.5 @20ml/hr for 6 hrs, advance as tolerated 10ml/hr q4-6 hrs to goal. - Flush per MD/ pt is on lasix - HOB over 30 degrees ADDITIONAL RECOMMENDATIONS: 1) TF recs above when medically appropriate 2) Rec bed side BG checks; am labs w/ elev BG (127-165). 3) Monitor lytes, need or renal formula (elev phos, elev Mg) 4) W/ lasix, add B-complex 1 daily 5) Maintain calibrated bed scale wts (7) Hypoxia Roman Pickens May 27, 2020 14:10
[2020-05-27] MEDS ORDERED: Amikacin 1,000 MG in NS 110 ML IV SCH (15:00)
[2020-05-27] MEDS: Dyna-Hex 2% Top Sol 2oz TOPIC SCH (20:05)
--- NOTE | 2020-05-27 20:07 | Cardiology Progress Note ---
Assessment/Plan Assessment/Plan 1. Tachycardia. 2. Atrial fibrillation, rapid ventricular response with history of permanent atrial fibrillation. 3. History of lung cancer on the right side. 4. Hypoxemia. 5. Reported history of coronary artery disease. 6. History of pacemaker implantation. 7. History of glaucoma. 8. History of gastroesophageal reflux disease. 9. Decubitus ulcers. 10. History of hypertension. 11. History of benign prostatic hypertrophy. 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 ) will hold of f on further diuretics wbc increased cxr personally reviewed form yest tle noted Subjective ROS Limited/Unobtainable: Yes Subjective on bipap Objective Last 24 Hour Vital Signs Date Time Temp Pulse Resp B/P (MAP) Pulse Ox O2 Delivery O2 Flow Rate FiO2 05/27/20 19:19 95 Bi-Pap 100 05/27/20 19:18 124 32 95 100 05/27/20 19:15 132 23 107/67 (80) 86 05/27/20 19:00 113 22 124/54 (77) 49 05/27/20 18:00 118 24 112/66 (81) 100 05/27/20 17:00 102 18 115/63 (80) 97 05/27/20 16:00 94 05/27/20 16:00 98.9 103 18 113/70 (84) 100 05/27/20 16:00 Bi-pap 05/27/20 16:00 100 05/27/20 15:00 87 30 100 100 05/27/20 15:00 100 24 109/53 (71) 100 05/27/20 14:30 99 23 108/72 (84) 100 05/27/20 14:00 92 23 110/67 (81) 100 05/27/20 13:45 100 24 109/53 (71) 100 05/27/20 13:30 105 23 119/72 (88) 97 05/27/20 13:15 100 24 102/66 (78) 100 05/27/20 13:00 97 24 120/109 (113) 100 05/27/20 12:30 94 24 99/72 (81) 100 05/27/20 12:15 100 29 100/56 (71) 100 05/27/20 12:00 Bi-pap 05/27/20 12:00 99.1 98 27 106/67 (80) 100 05/27/20 12:00 94 05/27/20 11:05 90 31 93 100 05/27/20 11:00 91 24 120/62 (81) 98 05/27/20 10:30 87 25 138/79 (98) 96 05/27/20 10:15 91 22 109/58 (75) 05/27/20 10:00 91 25 119/74 (89) 98 05/27/20 09:45 93 19 113/55 (74) 05/27/20 09:30 94 23 110/59 (76) 05/27/20 09:15 106 19 100/57 (71) 05/27/20 09:00 90 05/27/20 09:00 97.8 131 20 102/76 (85) 100 05/27/20 08:23 131 131/97 05/27/20 08:00 140 22 131/91 (104) 100 05/27/20 08:00 140 05/27/20 08:00 Bi-pap 05/27/20 08:00 100 05/27/20 07:05 100 Bi-Pap 90 05/27/20 07:05 140 33 100 90 05/27/20 07:00 135 19 118/61 (80) 100 05/27/20 06:30 133 19 125/87 (100) 100 05/27/20 06:00 135 26 101/63 (76) 100 05/27/20 05:30 128 28 118/61 (80) 100 05/27/20 05:00 126 25 114/55 (74) 100 05/27/20 04:30 123 16 110/53 (72) 98 05/27/20 04:00 100 05/27/20 04:00 Bi-pap 05/27/20 04:00 130 05/27/20 04:00 98.2 117 25 115/53 (73) 100 05/27/20 03:30 119 27 105/57 (73) 100 05/27/20 03:00 108 21 105/47 (66) 100 05/27/20 02:51 103 32 100 100 05/27/20 02:30 114 21 116/73 (87) 100 05/27/20 02:00 112 18 109/74 (86) 100 05/27/20 01:30 109 19 101/55 (70) 100 05/27/20 01:00 98 Bi-Pap 100 05/27/20 01:00 111 29 103/55 (71) 05/27/20 00:30 115 21 84/60 (68) 05/27/20 00:00 15.0 100 05/27/20 00:00 Bi-pap 05/27/20 00:00 98.0 115 24 94/61 (72) 05/27/20 00:00 114 05/26/20 23:00 109 23 133/76 (95) 100 05/26/20 22:44 114 31 99 100 05/26/20 22:30 107 27 118/88 (98) 100 05/26/20 22:00 117 27 113/64 (80) 100 05/26/20 21:45 127 29 138/82 (100) 99 05/26/20 21:30 155 28 141/67 (91) 05/26/20 21:15 156 30 146/63 (90) 05/26/20 21:00 15.0 100 05/26/20 21:00 156 30 123/72 (89) 99 05/26/20 20:58 165 115/69 05/26/20 20:45 168 28 104/81 (89) 99 05/26/20 20:30 160 30 136/68 (90) 99 05/26/20 20:15 149 31 104/71 (82) 98 05/26/20 20:09 151 General Appearance: no apparent distress, on vent Neck: supple Cardiovascular: tachycardia, irregularly irregular Respiratory/Chest: lungs clear - anteriorly Abdomen: normal bowel sounds, non tender, soft Extremities: no swelling Intake and Output 05/26/20 05/27/20 19:00 07:00 Intake Total 911.0 ml 477.225 ml Output Total 530 ml 1105 ml Balance 381.0 ml -627.775 ml IV Total 881.0 ml 417.225 ml Other 30 ml 60 ml Output Urine Total 530 ml 1105 ml Laboratory Tests Test 05/26/20 23:56 05/27/20 05:21 POC Whole Blood Glucose Pending White Blood Count 17.2 K/UL (4.8-10.8) H Red Blood Count 4.37 M/UL (4.70-6.10) L Hemoglobin 12.7 G/DL (14.2-18.0) L Hematocrit 40.9 % (42.0-52.0) L Mean Corpuscular Volume 94 FL (80-99) Mean Corpuscular Hemoglobin 29.0 PG (27.0-31.0) Mean Corpuscular Hemoglobin Concent 31.0 G/DL (32.0-36.0) L Red Cell Distribution Width 14.3 % (11.6-14.8) Platelet Count 330 K/UL (150-450) Mean Platelet Volume 7.6 FL (6.5-10.1) Neutrophils (%) (Auto) 78.1 % (45.0-75.0) H Lymphocytes (%) (Auto) 7.9 % (20.0-45.0) L Monocytes (%) (Auto) 12.4 % (1.0-10.0) H Eosinophils (%) (Auto) 0.1 % (0.0-3.0) Basophils (%) (Auto) 1.5 % (0.0-2.0) Sodium Level 136 MMOL/L (136-145) Potassium Level 3.3 MMOL/L (3.5-5.1) L Chloride Level 97 MMOL/L (98-107) L Carbon Dioxide Level 29 MMOL/L (21-32) Blood Urea Nitrogen 17 mg/dL (7-18) Creatinine 1.0 MG/DL (0.55-1.30) Estimat Glomerular Filtration Rate > 60 mL/min (>60) Glucose Level 153 MG/DL (74-106) H Calcium Level 8.6 MG/DL (8.5-10.1) Magnesium Level 1.7 MG/DL (1.8-2.4) L Total Bilirubin 0.7 MG/DL (0.2-1.0) Aspartate Amino Transf (AST/SGOT) 30 U/L (15-37) Alanine Aminotransferase (ALT/SGPT) 20 U/L (12-78) Alkaline Phosphatase 74 U/L (46-116) Total Protein 8.1 G/DL (6.4-8.2) Albumin 2.4 G/DL (3.4-5.0) L Globulin 5.7 g/dL Albumin/Globulin Ratio 0.4 (1.0-2.7) L Microbiology Date/Time Source Procedure Growth Status 05/26/20 10:00 Urine,Clean Catch Urine Culture - Preliminary Gram Negative Pancho Resulted Carrillo Zamudio MD May 27, 2020 20:07
[2020-05-27] MEDS ORDERED: Amiodarone 900 MG in D5W 500ml 482 ML IV SCH (21:00)
[2020-05-28] VITALS (59 sets, daily range): BP systolic 65–148; BP diastolic 40–106
[2020-05-28] MEDS: oxyCODONE 5mg IR tab GT PRN (01:46)
[2020-05-28 03:44] LABS: HEMATOCRIT 42.4 % (42.0-52.0); HEMOGLOBIN 13.1 G/DL (14.2-18.0); MEAN CORPUSCULAR VOLUME 94 FL (80-99); PLATELET COUNT 458 K/UL (150-450); RED BLOOD COUNT 4.49 M/UL (4.70-6.10)
[2020-05-28 04:03] LABS: ALANINE AMINOTRANSFERASE 23 U/L (12-78); ALBUMIN 2.1 G/DL (3.4-5.0); ALBUMIN/GLOBULIN RATIO 0.4 (1.0-2.7); ALKALINE PHOSPHATASE 83 U/L (46-116); ANION GAP 4 mmol/L (5-15); ASPARTATE AMINO TRANSFERASE 35 U/L (15-37); BILIRUBIN,TOTAL 0.5 MG/DL (0.2-1.0); BLOOD UREA NITROGEN 20 mg/dL (7-18); CALCIUM 8.5 MG/DL (8.5-10.1); CARBON DIOXIDE 31 MMOL/L (21-32); CHLORIDE 98 MMOL/L (98-107); POTASSIUM 3.7 MMOL/L (3.5-5.1); SODIUM 133 MMOL/L (136-145)
[2020-05-28] MEDS ORDERED: Norepinephrine 4mg/NS Premix 250 ML ONE (06:30)
[2020-05-28] MEDS: Cefepime 2gm in D5W 55ml IVPB SCH ×2 (06:48→13:46)
[2020-05-28] MEDS: Norepinephrine 4mg/NS Premix 250 ML IV SCH (06:55)
--- NOTE | 2020-05-28 06:56 | Consultation ---
History of Present Illness General Date patient seen: May 28, 2020 Time patient seen: 06:00 Chief Complaint: Dyspnea/Respdistress Present Illness HPI I was consulted to intubate this patient for hypercapnic respiratory failure. He is full code. Patient was examined at bedside. ABG has critically elevated PaCO2 patient and he is obtunded on CPAP. Patient will be intubated for altered mental status 2/2 hypercapnic respiratory failure and to secure the airway. Primary team to be notified directly by charge ICU nurse. Procedure Note: Endotracheal Intubation by me: Pre assessment performed. See preceding note for details. Pre-oxygenation performed with 100% oxygen RSI: Performed w/o complication or hypoxic events. Medications as ordered. Rocuronium and etomidate Emergency Endotracheal Intubation: Consent unable to be obtained due to emergent nature of procedure and airway assessment this patient was prepared for endotracheal intubation with preoxygenation and airway positioning. The patient underwent rapid sequence induction and endotracheal intubation utilizing direct visualization laryngoscopy. The endotracheal tube was placed between the vocal cords and placement was confirmed with fogging of the tube, end title CO2, and equal bilateral chest rise as well as absence of borborygmi over the epigastrium. Chest x-ray was obtained for final confirmation. There were no complications. Blade: Video laryngoscopy. 4 ET Tube: 7.5 cm Depth: 23 cm at the lip Complications: No hypoxic events or bradycardia Intubation confirmed by colorimetric CO2, equal breath sounds, quiet over the stomach. Intubated with full C spine precautions, with the assistance of chest pain coordinator. Chest X-ray: ETT in appropriate position above Caitlyn. Pacemaker. Worsened interstitial infiltrates. Worsened right-sided pneumonia. No pneumothorax Indication: ETT placement confirmation Impression: Appropriately positioned ETT Views: 1 view The X-rays were independently viewed by me and interpreted contemporaneously by me. Allergies: Coded Allergies: No Known Allergies (Unverified , 05/23/20) Medication History Scheduled Amino Acids/Protein Hydrolys (Pro-Stat Liquid), 30 ML GT TID, (Reported) Amlodipine Besylate* (Amlodipine Besylate*), 10 MG GT DAILY, (Reported) Apixaban (Eliquis*), 5 MG GT BID, (Reported) Ascorbic Acid* (Vitamin C*), 500 MG GT DAILY, (Reported) Docusate Sodium (Docusate Sodium), 200 MG GT DAILY, (Reported) Dorzolamide Hcl* (Trusopt*), 1 DROP BOTH EYES TID, (Reported) Latanoprost* (Xalatan*), 1 DROP BOTH EYES BEDTIME, (Reported) Losartan Potassium* (Losartan Potassium*), 50 MG GT BID, (Reported) Metoprolol Tartrate* (Metoprolol Tartrate*), 100 MG GT EVERY 12 HOURS, (Reported) Multivitamin With Minerals (Multivitamins With Minerals*), 1 TAB GT DAILY, (Reported) Omeprazole (Omeprazole), 40 MG GT DAILY, (Reported) Sennosides (Senna), 8.6 MG GT DAILY, (Reported) Spironolactone* (Aldactone*), 25 MG GT DAILY, (Reported) Terazosin Hcl* (Hytrin*), 1 MG GT BEDTIME, (Reported) Thiamine Hcl* (Vitamin B-1*), 100 MG GT DAILY, (Reported) Scheduled PRN Acetaminophen* (Acetaminophen 325MG Tablet*), 325 MG GT Q4H PRN for Mild Pain (Pain Scale 1-3), (Reported) Acetaminophen* (Acetaminophen 325MG Tablet*), 650 MG GT Q4H PRN for Moderate Pain (Pain Scale 4-6), (Reported) Hydrocodone Bit/Acetaminophen 5-325* ([place] 5-325 Tablet*), 2 TAB GT Q6H PRN for Severe Pain (Pain Scale 7-10), (Reported) Magnesium Hydroxide* (Milk Of Magnesia*), 30 ML GT DAILY PRN for Constipation, (Reported) Ondansetron* (Zofran*), 4 MG GT Q8HR PRN for Nausea & Vomiting, (Reported) Discontinued Medications Multivitamins* (Multivitamins*), 1 TAB GT DAILY, (Reported) Discontinued Reason: Prescription changed Patient History Healthcare decision maker Resuscitation status Advanced Directive on File Physical Exam General Appearance: moderate distress Lines, tubes and drains: central line HEENT: normocephalic, atraumatic Neck: non-tender Respiratory/Chest: respiratory distress, accessory muscle use Cardiovascular/Chest: regular rhythm, tachycardia Abdomen: normal bowel sounds, non tender, soft, no organomegaly Genitourinary/Rectal: normal genital exam Extremities: other - contractures Neurologic: unresponsiveness Last 24 Hour Vital Signs Date Time Temp Pulse Resp B/P (MAP) Pulse Ox O2 Delivery O2 Flow Rate FiO2 05/28/20 06:35 67 18 100 05/28/20 03:18 70 31 92 100 05/28/20 01:00 81 27 120/63 (82) 99 05/28/20 00:30 80 27 118/64 (82) 99 05/28/20 00:00 Bi-pap 05/28/20 00:00 98.4 77 24 111/71 (84) 95 05/28/20 00:00 100 05/28/20 00:00 82 05/27/20 23:30 79 24 115/58 (77) 88 05/27/20 23:00 72 20 104/56 (72) 94 05/27/20 22:56 70 31 97 100 05/27/20 22:30 70 25 110/63 (79) 88 05/27/20 22:00 67 23 108/66 (80) 94 05/27/20 21:30 67 28 111/63 (79) 79 05/27/20 21:15 78 21 118/65 (82) 100 05/27/20 21:00 128 23 105/68 (80) 96 05/27/20 20:46 120 125/94 05/27/20 20:45 127 24 125/94 (104) 99 05/27/20 20:30 119 18 111/61 (78) 97 05/27/20 20:15 121 20 124/64 (84) 97 05/27/20 20:00 123 25 112/65 (81) 100 05/27/20 20:00 94 05/27/20 20:00 Bi-pap 05/27/20 20:00 100 05/27/20 19:19 95 Bi-Pap 100 05/27/20 19:18 124 32 95 100 05/27/20 19:15 132 23 107/67 (80) 86 05/27/20 19:00 113 22 124/54 (77) 49 05/27/20 18:00 118 24 112/66 (81) 100 05/27/20 17:00 102 18 115/63 (80) 97 05/27/20 16:00 94 05/27/20 16:00 98.9 103 18 113/70 (84) 100 05/27/20 16:00 Bi-pap 05/27/20 16:00 100 05/27/20 15:00 87 30 100 100 05/27/20 15:00 100 24 109/53 (71) 100 05/27/20 14:30 99 23 108/72 (84) 100 05/27/20 14:00 92 23 110/67 (81) 100 05/27/20 13:45 100 24 109/53 (71) 100 05/27/20 13:30 105 23 119/72 (88) 97 05/27/20 13:15 100 24 102/66 (78) 100 05/27/20 13:00 97 24 120/109 (113) 100 05/27/20 12:30 94 24 99/72 (81) 100 05/27/20 12:15 100 29 100/56 (71) 100 05/27/20 12:00 Bi-pap 05/27/20 12:00 99.1 98 27 106/67 (80) 100 05/27/20 12:00 94 05/27/20 11:05 90 31 93 100 05/27/20 11:00 91 24 120/62 (81) 98 05/27/20 10:30 87 25 138/79 (98) 96 05/27/20 10:15 91 22 109/58 (75) 05/27/20 10:00 91 25 119/74 (89) 98 05/27/20 09:45 93 19 113/55 (74) 05/27/20 09:30 94 23 110/59 (76) 05/27/20 09:15 106 19 100/57 (71) 05/27/20 09:00 90 05/27/20 09:00 97.8 131 20 102/76 (85) 100 05/27/20 08:23 131 131/97 05/27/20 08:00 140 22 131/91 (104) 100 05/27/20 08:00 140 05/27/20 08:00 Bi-pap 05/27/20 08:00 100 05/27/20 07:05 100 Bi-Pap 90 05/27/20 07:05 140 33 100 90 05/27/20 07:00 135 19 118/61 (80) 100 Intake and Output 05/27/20 05/28/20 19:00 07:00 Intake Total 1091.671 ml 180 ml Output Total 425 ml 520 ml Balance 666.671 ml -340 ml Intake Free Water 30 ml IV Total 996.671 ml Tube Feeding 95 ml 150 ml Output Urine Total 425 ml 520 ml Laboratory Tests Test 05/27/20 22:00 05/28/20 03:00 05/28/20 05:44 Vancomycin Level Trough 26.1 ug/mL (5.0-12.0) H White Blood Count 24.0 K/UL (4.8-10.8) *H Red Blood Count 4.49 M/UL (4.70-6.10) L Hemoglobin 13.1 G/DL (14.2-18.0) L Hematocrit 42.4 % (42.0-52.0) Mean Corpuscular Volume 94 FL (80-99) Mean Corpuscular Hemoglobin 29.2 PG (27.0-31.0) Mean Corpuscular Hemoglobin Concent 30.9 G/DL (32.0-36.0) L Red Cell Distribution Width 14.0 % (11.6-14.8) Platelet Count 458 K/UL (150-450) H Mean Platelet Volume 6.9 FL (6.5-10.1) Neutrophils (%) (Auto) % (45.0-75.0) Lymphocytes (%) (Auto) % (20.0-45.0) Monocytes (%) (Auto) % (1.0-10.0) Eosinophils (%) (Auto) % (0.0-3.0) Basophils (%) (Auto) % (0.0-2.0) Neutrophils % (Manual) Pending Lymphocytes % (Manual) Pending Platelet Estimate Pending Platelet Morphology Pending Sodium Level 133 MMOL/L (136-145) L Potassium Level 3.7 MMOL/L (3.5-5.1) Chloride Level 98 MMOL/L (98-107) Carbon Dioxide Level 31 MMOL/L (21-32) Anion Gap 4 mmol/L (5-15) L Blood Urea Nitrogen 20 mg/dL (7-18) H Creatinine 1.0 MG/DL (0.55-1.30) Estimat Glomerular Filtration Rate > 60 mL/min (>60) Glucose Level 173 MG/DL (74-106) H Calcium Level 8.5 MG/DL (8.5-10.1) Magnesium Level 2.2 MG/DL (1.8-2.4) Total Bilirubin 0.5 MG/DL (0.2-1.0) Aspartate Amino Transf (AST/SGOT) 35 U/L (15-37) Alanine Aminotransferase (ALT/SGPT) 23 U/L (12-78) Alkaline Phosphatase 83 U/L (46-116) C-Reactive Protein, Quantitative 39.6 mg/dL (0.00-0.90) H Total Protein 7.9 G/DL (6.4-8.2) Albumin 2.1 G/DL (3.4-5.0) L Globulin 5.8 g/dL Albumin/Globulin Ratio 0.4 (1.0-2.7) L Random Amikacin Level Pending Arterial Blood pH 7.090 (7.350-7.450) Arterial Blood Partial Pressure CO2 93.7 mmHg (35.0-45.0) *H Arterial Blood Partial Pressure O2 42.6 mmHg (75.0-100.0) Arterial Blood HCO3 27.8 mmol/L (22.0-26.0) H Arterial Blood Oxygen Saturation 63.8 % (95-100) *L Arterial Blood Base Excess -4.0 (-2-2) L Alton Test Positive Height (Feet): 5 Height (Inches): 10.00 Weight (Pounds): 168 Medications Current Medications Medications (Trade) Dose Ordered Sig/Joan Route PRN Reason Start Time Stop Time Status Last Admin Dose Admin Amikacin Protocol (Amikacin pharmacy to dose) 1 ea DAILY PRN MISC Per rx protocol 05/27/20 13:30 06/26/20 13:29 Amikacin Sulfate 1000 mg/Sodium Chloride 114 ml @ 114 mls/hr Q24H IV 05/27/20 15:00 06/03/20 14:59 05/27/20 14:32 Apixaban (Eliquis) 5 mg BID GT 05/23/20 18:00 08/21/20 17:59 05/27/20 18:23 Cefepime HCl 2 gm/ Dextrose 55 ml @ 110 mls/hr Q8HR IVPB 05/26/20 10:00 06/02/20 09:59 05/28/20 06:48 Chlorhexidine Gluconate (Zohreh-Hex 2%) 1 applic DAILY@2000 TOPIC 05/23/20 20:00 08/21/20 19:59 05/27/20 20:05 Dextrose (Dextrose 50%) 25 ml Q30M PRN IV Hypoglycemia 05/23/20 05:15 08/21/20 05:14 Dextrose (Dextrose 50%) 50 ml Q30M PRN IV Hypoglycemia 05/23/20 05:15 08/21/20 05:14 Lorazepam (Ativan 2mg/ml 1ml) 1 mg BID PRN IV For Anxiety 05/26/20 10:30 06/02/20 10:29 Metoprolol Tartrate (Lopressor) 75 mg Q12HR GT 05/27/20 20:30 08/25/20 20:29 05/27/20 20:46 Metronidazole 100 ml @ 100 mls/hr Q8HR IVPB 05/26/20 22:00 06/02/20 21:59 05/28/20 06:49 Norepinephrine Bitartrate 250 ml @ 0 mls/hr Q24H IV 05/28/20 06:45 05/31/20 06:32 Oxycodone HCl (Roxicodone) 5 mg Q4H PRN GT pain 4-10 05/23/20 22:00 05/30/20 21:59 05/28/20 01:46 Sodium Chloride 500 ml @ 999 mls/hr Q31M ONCE IV 05/28/20 06:45 05/28/20 07:15 Vancomycin HCl (Vanco pharmacy to dose) 1 ea DAILY PRN MISC Per rx protocol 05/26/20 08:00 06/25/20 07:59 Vancomycin HCl 1 gm/Dextrose 275 ml @ 183.708 mls/hr Q12HR IVPB 05/28/20 09:00 06/02/20 08:59 Sofia Hansen D.O. May 28, 2020 06:56
--- NOTE | 2020-05-28 07:33 | Diagnostic Imaging Report ---
EXAM: XR Chest, 1 View CLINICAL HISTORY: INFECT TECHNIQUE: Frontal view of the chest. COMPARISON: 05/26/2020 FINDINGS: Lungs: The study is slightly limited due to patient rotation. There are bilateral pulmonary opacities, right greater than left which have worsened/increased compared to the previous study, consistent with pneumonia. There is dense opacity right lung base suggestive of effusion. Pleural space: No pneumothorax. Heart: Unremarkable. No cardiomegaly. Mediastinum: Unremarkable. Bones/joints: Unremarkable. Tubes, lines and devices: An endotracheal tube is in place with the tip passing 4.5 cm above the crissy. A right internal jugular central venous catheter tip overlies the SVC/right atrial region. A permanent pacemaker is unchanged in position. IMPRESSION: Interval worsening of significant pneumonia, right greater than left.
[2020-05-28] MEDS: Vancomycin 1gm in D5W 275ml IVPB SCH ×2 (08:44→21:28)
[2020-05-28] MEDS: Eliquis 5mg tablet GT SCH ×2 (08:45→18:16)
--- NOTE | 2020-05-28 09:40 | Pulmonology Progress Note ---
Subjective ROS Limited/Unobtainable: Yes Interval Events: Intubated this Am due to respiratory acidosis Constitutional: Denies: fever HEENT: Repors: no symptoms Respiratory: Reports: no symptoms Cardiovascular: Reports: no symptoms Gastrointestinal/Abdominal: Denies: nausea, vomiting Genitourinary: Reports: no symptoms Neurologic: Reports: no symptoms Allergies: Coded Allergies: No Known Allergies (Unverified , 05/23/20) Objective Last 24 Hour Vital Signs Date Time Temp Pulse Resp B/P (MAP) Pulse Ox O2 Delivery O2 Flow Rate FiO2 05/28/20 09:00 93 28 132/66 (88) 80 05/28/20 08:30 91 21 137/64 (88) 81 05/28/20 08:15 91 28 135/61 (85) 83 05/28/20 08:00 Endotracheal Tube 05/28/20 08:00 97.5 92 0 144/65 (91) 84 05/28/20 08:00 100 05/28/20 07:30 75 17 140/56 (84) 80 05/28/20 07:20 73 18 139/57 (84) 82 05/28/20 07:15 72 18 148/66 (93) 85 05/28/20 07:00 70 18 143/63 (89) 87 05/28/20 07:00 70 18 143/63 (89) 87 05/28/20 06:55 70/30 05/28/20 06:45 77 18 129/71 (90) 87 05/28/20 06:35 67 18 100 05/28/20 06:30 64 17 65/48 (54) 71 05/28/20 06:15 61 19 101/51 (68) 76 05/28/20 06:10 100 05/28/20 06:00 60 05/28/20 06:00 61 22 94/54 (67) 68 05/28/20 05:45 60 16 91/49 (63) 67 05/28/20 05:39 60 17 77/50 (59) 61 05/28/20 05:30 63 13 80/54 (63) 71 05/28/20 05:00 69 24 117/60 (79) 94 05/28/20 04:45 68 20 122/56 (78) 94 05/28/20 04:30 71 24 112/52 (72) 94 05/28/20 04:15 70 21 111/65 (80) 94 05/28/20 04:00 100 05/28/20 04:00 71 21 113/48 (69) 93 05/28/20 04:00 80 05/28/20 04:00 Bi-pap 05/28/20 03:45 67 14 104/54 (71) 93 05/28/20 03:30 69 20 111/76 (88) 93 05/28/20 03:18 70 31 92 100 05/28/20 03:15 70 25 99/64 (76) 92 05/28/20 03:00 69 21 116/56 (76) 90 05/28/20 02:45 69 22 117/60 (79) 91 05/28/20 02:30 74 26 120/63 (82) 92 05/28/20 02:15 74 19 104/53 (70) 89 05/28/20 02:00 81 20 116/60 (78) 82 05/28/20 01:00 81 27 120/63 (82) 99 05/28/20 00:30 80 27 118/64 (82) 99 05/28/20 00:00 Bi-pap 05/28/20 00:00 98.4 77 24 111/71 (84) 95 05/28/20 00:00 100 05/28/20 00:00 82 05/27/20 23:30 79 24 115/58 (77) 88 05/27/20 23:00 72 20 104/56 (72) 94 05/27/20 22:56 70 31 97 100 05/27/20 22:30 70 25 110/63 (79) 88 05/27/20 22:00 67 23 108/66 (80) 94 05/27/20 21:30 67 28 111/63 (79) 79 05/27/20 21:15 78 21 118/65 (82) 100 05/27/20 21:00 128 23 105/68 (80) 96 05/27/20 20:46 120 125/94 05/27/20 20:45 127 24 125/94 (104) 99 05/27/20 20:30 119 18 111/61 (78) 97 05/27/20 20:15 121 20 124/64 (84) 97 05/27/20 20:00 123 25 112/65 (81) 100 11/23/20 20:00 94 05/27/20 20:00 Bi-pap 05/27/20 20:00 100 05/27/20 19:19 95 Bi-Pap 100 05/27/20 19:18 124 32 95 100 05/27/20 19:15 132 23 107/67 (80) 86 05/27/20 19:00 113 22 124/54 (77) 49 05/27/20 18:00 118 24 112/66 (81) 100 05/27/20 17:00 102 18 115/63 (80) 97 05/27/20 16:00 94 05/27/20 16:00 98.9 103 18 113/70 (84) 100 05/27/20 16:00 Bi-pap 05/27/20 16:00 100 05/27/20 15:00 87 30 100 100 05/27/20 15:00 100 24 109/53 (71) 100 05/27/20 14:30 99 23 108/72 (84) 100 05/27/20 14:00 92 23 110/67 (81) 100 05/27/20 13:45 100 24 109/53 (71) 100 05/27/20 13:30 105 23 119/72 (88) 97 05/27/20 13:15 100 24 102/66 (78) 100 05/27/20 13:00 97 24 120/109 (113) 100 05/27/20 12:30 94 24 99/72 (81) 100 05/27/20 12:15 100 29 100/56 (71) 100 05/27/20 12:00 Bi-pap 05/27/20 12:00 99.1 98 27 106/67 (80) 100 05/27/20 12:00 94 05/27/20 11:05 90 31 93 100 05/27/20 11:00 91 24 120/62 (81) 98 05/27/20 10:30 87 25 138/79 (98) 96 05/27/20 10:15 91 22 109/58 (75) 05/27/20 10:00 91 25 119/74 (89) 98 05/27/20 09:45 93 19 113/55 (74) Intake and Output 05/27/20 05/28/20 19:00 07:00 Intake Total 1091.671 ml 343.336 ml Output Total 425 ml 750 ml Balance 666.671 ml -406.664 ml Intake Free Water 30 ml IV Total 996.671 ml 133.336 ml Tube Feeding 95 ml 180 ml Output Urine Total 425 ml 750 ml General Appearance: no acute distress HEENT: normocephalic Respiratory: chest wall non-tender, decreased breath sounds Cardiovascular: normal peripheral pulses, normal rate Abdomen: normal bowel sounds Microbiology Date/Time Source Procedure Growth Status 05/26/20 10:00 Urine,Clean Catch Urine Culture - Preliminary Gram Negative Pancho Resulted 05/26/20 09:55 Blood Blood Culture - Preliminary NO GROWTH AFTER 24 HOURS Resulted 05/26/20 09:45 Blood Blood Culture - Preliminary NO GROWTH AFTER 24 HOURS Resulted Laboratory Tests 05/27/20 22:00: Vancomycin Level Trough 26.1H 05/28/20 03:00: White Blood Count 24.0*H, Red Blood Count 4.49L, Hemoglobin 13.1L, Hematocrit 42.4, Mean Corpuscular Volume 94, Mean Corpuscular Hemoglobin 29.2, Mean Corpuscular Hemoglobin Concent 30.9L, Red Cell Distribution Width 14.0, Platelet Count 458H, Mean Platelet Volume 6.9, Neutrophils (%) (Auto) , Lymphocytes (%) (Auto) , Monocytes (%) (Auto) , Eosinophils (%) (Auto) , Basophils (%) (Auto) , Neutrophils % (Manual) [Pending], Lymphocytes % (Manual) [Pending], Platelet Estimate [Pending], Platelet Morphology [Pending], Sodium Level 133L, Potassium Level 3.7, Chloride Level 98, Carbon Dioxide Level 31, Anion Gap 4L, Blood Urea Nitrogen 20H, Creatinine 1.0, Estimat Glomerular Filtration Rate > 60, Glucose Level 173H, Calcium Level 8.5, Magnesium Level 2.2, Total Bilirubin 0.5, Aspartate Amino Transf (AST/SGOT) 35, Alanine Aminotransferase (ALT/SGPT) 23, Alkaline Phosphatase 83, C-Reactive Protein, Quantitative 39.6H, Total Protein 7.9, Albumin 2.1L, Globulin 5.8, Albumin/Globulin Ratio 0.4L, Random Amikacin Level [Pending] 05/28/20 05:44: Arterial Blood pH 7.090*L, Arterial Blood Partial Pressure CO2 93.7*H, Arterial Blood Partial Pressure O2 42.6*L, Arterial Blood HCO3 27.8H, Arterial Blood Oxygen Saturation 63.8*L, Arterial Blood Base Excess -4.0L, Alton Test Positive 05/28/20 07:25: Arterial Blood pH 7.232*L, Arterial Blood Partial Pressure CO2 54.4H, Arterial Blood Partial Pressure O2 45.6*L, Arterial Blood HCO3 22.4, Arterial Blood Oxygen Saturation 76.9*L, Arterial Blood Base Excess -5.5L, Alton Test Positive Current Medications Medications (Trade) Dose Ordered Sig/Joan Route PRN Reason Start Time Stop Time Status Last Admin Dose Admin Amikacin Protocol (Amikacin pharmacy to dose) 1 ea DAILY PRN MISC Per rx protocol 05/27/20 13:30 06/26/20 13:29 Amikacin Sulfate 1000 mg/Sodium Chloride 114 ml @ 114 mls/hr Q24H IV 05/27/20 15:00 06/03/20 14:59 05/27/20 14:32 Apixaban (Eliquis) 5 mg BID GT 05/23/20 18:00 08/21/20 17:59 05/28/20 08:45 Cefepime HCl 2 gm/ Dextrose 55 ml @ 110 mls/hr Q8HR IVPB 05/26/20 10:00 06/02/20 09:59 05/28/20 06:48 Chlorhexidine Gluconate (Zohreh-Hex 2%) 1 applic DAILY@2000 TOPIC 05/23/20 20:00 08/21/20 19:59 05/27/20 20:05 Dextrose (Dextrose 50%) 25 ml Q30M PRN IV Hypoglycemia 05/23/20 05:15 08/21/20 05:14 Dextrose (Dextrose 50%) 50 ml Q30M PRN IV Hypoglycemia 05/23/20 05:15 08/21/20 05:14 Lorazepam (Ativan 2mg/ml 1ml) 1 mg BID PRN IV For Anxiety 05/26/20 10:30 06/02/20 10:29 Metoprolol Tartrate (Lopressor) 75 mg Q12HR GT 05/27/20 20:30 08/25/20 20:29 05/27/20 20:46 Metronidazole 100 ml @ 100 mls/hr Q8HR IVPB 05/26/20 22:00 06/02/20 21:59 05/28/20 06:49 Norepinephrine Bitartrate 250 ml @ 0 mls/hr Q24H IV 05/28/20 06:45 05/31/20 06:32 05/28/20 06:55 Oxycodone HCl (Roxicodone) 5 mg Q4H PRN GT pain 4-10 05/23/20 22:00 05/30/20 21:59 05/28/20 01:46 Vancomycin HCl (Vanco pharmacy to dose) 1 ea DAILY PRN MISC Per rx protocol 05/26/20 08:00 06/25/20 07:59 Vancomycin HCl 1 gm/Dextrose 275 ml @ 183.708 mls/hr Q12HR IVPB 05/28/20 09:00 06/02/20 08:59 05/28/20 08:44 Assessment/Plan Assessment/Plan IMPRESSION: 1. Decompensated congestive heart failure. 2. Permanent pacemaker. 3. Right pleural effusion. 4. History of lung cancer. 5. Hypoxic respiratory failure. DISCUSSION: 1. Agree with diuresis; 2. Intubated now; will continue 100% fiO2; PEEP 5; Vt 500; rate 18; check ABg 3. COVID-19 testing is negative. 4. I will follow carefully. Kirstie Membreno Omar Syed MD May 28, 2020 09:40
--- NOTE | 2020-05-28 11:35 | Surgery Progress Note ---
Surgery Progress Note Subjective Additional Comments worsening respiratory decline intubated on vent support now labs noted cxr reviewed Objective Last 24 Hour Vital Signs Date Time Temp Pulse Resp B/P (MAP) Pulse Ox O2 Delivery O2 Flow Rate FiO2 05/28/20 11:00 64 25 114/70 (85) 87 05/28/20 10:00 85 26 140/69 (92) 78 05/28/20 09:42 93 132/66 05/28/20 09:00 93 28 132/66 (88) 80 05/28/20 08:30 91 21 137/64 (88) 81 05/28/20 08:15 91 28 135/61 (85) 83 05/28/20 08:00 Endotracheal Tube 05/28/20 08:00 97.5 92 0 144/65 (91) 84 05/28/20 08:00 100 05/28/20 07:46 90 05/28/20 07:30 75 17 140/56 (84) 80 05/28/20 07:20 73 18 139/57 (84) 82 05/28/20 07:15 72 18 148/66 (93) 85 05/28/20 07:00 70 18 143/63 (89) 87 05/28/20 07:00 70 18 143/63 (89) 87 05/28/20 06:55 70/30 05/28/20 06:45 77 18 129/71 (90) 87 05/28/20 06:35 67 18 100 05/28/20 06:30 64 17 65/48 (54) 71 05/28/20 06:15 61 19 101/51 (68) 76 05/28/20 06:10 100 05/28/20 06:00 60 05/28/20 06:00 61 22 94/54 (67) 68 05/28/20 05:45 60 16 91/49 (63) 67 05/28/20 05:39 60 17 77/50 (59) 61 05/28/20 05:30 63 13 80/54 (63) 71 05/28/20 05:00 69 24 117/60 (79) 94 05/28/20 04:45 68 20 122/56 (78) 94 05/28/20 04:30 71 24 112/52 (72) 94 05/28/20 04:15 70 21 111/65 (80) 94 05/28/20 04:00 100 05/28/20 04:00 71 21 113/48 (69) 93 05/28/20 04:00 80 05/28/20 04:00 Bi-pap 05/28/20 03:45 67 14 104/54 (71) 93 05/28/20 03:30 69 20 111/76 (88) 93 05/28/20 03:18 70 31 92 100 05/28/20 03:15 70 25 99/64 (76) 92 05/28/20 03:00 69 21 116/56 (76) 90 05/28/20 02:45 69 22 117/60 (79) 91 05/28/20 02:30 74 26 120/63 (82) 92 05/28/20 02:15 74 19 104/53 (70) 89 05/28/20 02:00 81 20 116/60 (78) 82 05/28/20 01:00 81 27 120/63 (82) 99 05/28/20 00:30 80 27 118/64 (82) 99 05/28/20 00:00 Bi-pap 05/28/20 00:00 98.4 77 24 111/71 (84) 95 05/28/20 00:00 100 05/28/20 00:00 82 05/27/20 23:30 79 24 115/58 (77) 88 05/27/20 23:00 72 20 104/56 (72) 94 05/27/20 22:56 70 31 97 100 05/27/20 22:30 70 25 110/63 (79) 88 05/27/20 22:00 67 23 108/66 (80) 94 05/27/20 21:30 67 28 111/63 (79) 79 05/27/20 21:15 78 21 118/65 (82) 100 05/27/20 21:00 128 23 105/68 (80) 96 05/27/20 20:46 120 125/94 05/27/20 20:45 127 24 125/94 (104) 99 05/27/20 20:30 119 18 111/61 (78) 97 05/27/20 20:15 121 20 124/64 (84) 97 05/27/20 20:00 123 25 112/65 (81) 100 05/27/20 20:00 94 05/27/20 20:00 Bi-pap 05/27/20 20:00 100 05/27/20 19:19 95 Bi-Pap 100 05/27/20 19:18 124 32 95 100 05/27/20 19:15 132 23 107/67 (80) 86 05/27/20 19:00 113 22 124/54 (77) 49 05/27/20 18:00 118 24 112/66 (81) 100 05/27/20 17:00 102 18 115/63 (80) 97 05/27/20 16:00 94 05/27/20 16:00 98.9 103 18 113/70 (84) 100 05/27/20 16:00 Bi-pap 05/27/20 16:00 100 05/27/20 15:00 87 30 100 100 05/27/20 15:00 100 24 109/53 (71) 100 05/27/20 14:30 99 23 108/72 (84) 100 05/27/20 14:00 92 23 110/67 (81) 100 05/27/20 13:45 100 24 109/53 (71) 100 05/27/20 13:30 105 23 119/72 (88) 97 05/27/20 13:15 100 24 102/66 (78) 100 05/27/20 13:00 97 24 120/109 (113) 100 05/27/20 12:30 94 24 99/72 (81) 100 05/27/20 12:15 100 29 100/56 (71) 100 05/27/20 12:00 Bi-pap 05/27/20 12:00 99.1 98 27 106/67 (80) 100 05/27/20 12:00 94 I&O Intake and Output 05/27/20 05/28/20 19:00 07:00 Intake Total 1091.671 ml 344.896 ml Output Total 425 ml 750 ml Balance 666.671 ml -405.104 ml Intake Free Water 30 ml IV Total 996.671 ml 134.896 ml Tube Feeding 95 ml 180 ml Output Urine Total 425 ml 750 ml Dressing: saturated Cardiovascular: RSR Respiratory: decreased breath sounds, other Abdomen: soft, non-tender, present bowel sounds Extremities: no tenderness, no cyanosis Laboratory Tests Test 05/27/20 22:00 05/28/20 03:00 05/28/20 05:44 05/28/20 07:25 Vancomycin Level Trough 26.1 ug/mL (5.0-12.0) H White Blood Count 24.0 K/UL (4.8-10.8) *H Red Blood Count 4.49 M/UL (4.70-6.10) L Hemoglobin 13.1 G/DL (14.2-18.0) L Hematocrit 42.4 % (42.0-52.0) Mean Corpuscular Volume 94 FL (80-99) Mean Corpuscular Hemoglobin 29.2 PG (27.0-31.0) Mean Corpuscular Hemoglobin Concent 30.9 G/DL (32.0-36.0) L Red Cell Distribution Width 14.0 % (11.6-14.8) Platelet Count 458 K/UL (150-450) H Mean Platelet Volume 6.9 FL (6.5-10.1) Neutrophils (%) (Auto) % (45.0-75.0) Lymphocytes (%) (Auto) % (20.0-45.0) Monocytes (%) (Auto) % (1.0-10.0) Eosinophils (%) (Auto) % (0.0-3.0) Basophils (%) (Auto) % (0.0-2.0) Differential Total Cells Counted 100 Neutrophils % (Manual) 79 % (45-75) H Lymphocytes % (Manual) 7 % (20-45) L Monocytes % (Manual) 11 % (1-10) H Eosinophils % (Manual) 0 % (0-3) Basophils % (Manual) 0 % (0-2) Band Neutrophils 3 % (0-8) Platelet Estimate Adequate Platelet Morphology Normal Anisocytosis 1+ Sodium Level 133 MMOL/L (136-145) L Potassium Level 3.7 MMOL/L (3.5-5.1) Chloride Level 98 MMOL/L (98-107) Carbon Dioxide Level 31 MMOL/L (21-32) Anion Gap 4 mmol/L (5-15) L Blood Urea Nitrogen 20 mg/dL (7-18) H Creatinine 1.0 MG/DL (0.55-1.30) Estimat Glomerular Filtration Rate > 60 mL/min (>60) Glucose Level 173 MG/DL (74-106) H Calcium Level 8.5 MG/DL (8.5-10.1) Magnesium Level 2.2 MG/DL (1.8-2.4) Total Bilirubin 0.5 MG/DL (0.2-1.0) Aspartate Amino Transf (AST/SGOT) 35 U/L (15-37) Alanine Aminotransferase (ALT/SGPT) 23 U/L (12-78) Alkaline Phosphatase 83 U/L (46-116) C-Reactive Protein, Quantitative 39.6 mg/dL (0.00-0.90) H Total Protein 7.9 G/DL (6.4-8.2) Albumin 2.1 G/DL (3.4-5.0) L Globulin 5.8 g/dL Albumin/Globulin Ratio 0.4 (1.0-2.7) L Random Amikacin Level 21.0 MG/L Arterial Blood pH 7.090 (7.350-7.450) 7.232 (7.350-7.450) Arterial Blood Partial Pressure CO2 93.7 mmHg (35.0-45.0) *H 54.4 mmHg (35.0-45.0) H Arterial Blood Partial Pressure O2 42.6 mmHg (75.0-100.0) 45.6 mmHg (75.0-100.0) Arterial Blood HCO3 27.8 mmol/L (22.0-26.0) H 22.4 mmol/L (22.0-26.0) Arterial Blood Oxygen Saturation 63.8 % (95-100) *L 76.9 % (95-100) *L Arterial Blood Base Excess -4.0 (-2-2) L -5.5 (-2-2) L [place] Test Positive Positive Plan Problems: (1) Shortness of breath Assessment & Plan: worsening intubated now on vent wean vent as tolerated diuresis (2) Lung cancer (3) A-fib (4) CHF exacerbation (5) G tube feedings (6) Cellulitis of scrotum Assessment & Plan: Patient identified admission to have scrotal cellulitis with fluid-filled large scrotum in the posterior aspect of the perineum there is a opening proximally 1 cm raised 1 cm with cellulitis and induration around it no fluctuance no abscess. Wound washed. Swab Betadine. Dressings applied. IV antibiotics. Will monitor with physical examination to ensure not worsening. May form phlegmon into abscess requiring I&D but currently no fluid collection requiring I&D. Will monitor to ensure healing. Thank you for letting present patient's care will follow with recommendations abd exam improved scrotum stable requiring bipap cxr noted leukocytosis cont abx fluids respiratory support DAILY ESTIMATED NEEDS: Needs based on Pulmonary, Cancer, bedbound 72.6kg 23-28 kcals/kg 2520-8957 total kcals 1-1.5 g protein/kg 73-109 g total protein Fluid per MD, on lasix NUTRITION DIAGNOSIS: Swallowing difficulty r/t dysphagia as evidenced by pt is PEG dep. CURRENT TF: (NPO) ENTERAL NUTRITION RECOMMENDATIONS: As medically able, rec Glucerna 1.5 goal of 50ml/hr x24 hrs to provide 1200ml, 1800 kcal, 99g pro, 911ml free H2O - As medically able, rec carb control (elev BG 127-165), low free fluid formula(elev BNP, on lasix, edematous). - Start Glucerna 1.5 @20ml/hr for 6 hrs, advance as tolerated 10ml/hr q4-6 hrs to goal. - Flush per MD/ pt is on lasix - HOB over 30 degrees ADDITIONAL RECOMMENDATIONS: 1) TF recs above when medically appropriate 2) Rec bed side BG checks; am labs w/ elev BG (127-165). 3) Monitor lytes, need or renal formula (elev phos, elev Mg) 4) W/ lasix, add B-complex 1 daily 5) Maintain calibrated bed scale wts (7) Hypoxia Roman Pickens May 28, 2020 11:35
--- NOTE | 2020-05-28 12:49 | Cardiology Progress Note ---
Assessment/Plan Assessment/Plan 1. Tachycardia. 2. Atrial fibrillation, rapid ventricular response with history of permanent atrial fibrillation. 3. History of lung cancer on the right side. 4. Hypoxemia. 5. Reported history of coronary artery disease. 6. History of pacemaker implantation. 7. History of glaucoma. 8. History of gastroesophageal reflux disease. 9. Decubitus ulcers. 10. History of hypertension. 11. History of benign prostatic hypertrophy 12. acute repiratory failure 13. Hypotension 14. bradycardia echo normal lv function early this am i was contacted by staff pt developed respiratory isnuf and acidosiis required to be intubated post intubation developed profound hypotension i was contacted by staff for orderd ns bolus ordere pressor with Levophed ordered amiod dc as pt at that poitn was bradycardic tele persoanlly reviewed seem to be in sinus now vent support pressor upport cxr personally reviewed , right lung almost white out with shift to the right may be suggestive of atelectasis / collapse metoprolol for heart rate as bp allows Subjective ROS Limited/Unobtainable: Yes Subjective intubated on a vent now not verbally communicative Objective Last 24 Hour Vital Signs Date Time Temp Pulse Resp B/P (MAP) Pulse Ox O2 Delivery O2 Flow Rate FiO2 05/28/20 11:30 62 18 100 05/28/20 11:00 64 25 114/70 (85) 87 05/28/20 10:00 85 26 140/69 (92) 78 05/28/20 09:42 93 132/66 05/28/20 09:00 93 28 132/66 (88) 80 05/28/20 08:30 91 21 137/64 (88) 81 05/28/20 08:15 91 28 135/61 (85) 83 05/28/20 08:00 Endotracheal Tube 05/28/20 08:00 97.5 92 0 144/65 (91) 84 05/28/20 08:00 100 05/28/20 07:46 90 05/28/20 07:30 75 17 140/56 (84) 80 05/28/20 07:20 73 18 139/57 (84) 82 05/28/20 07:15 72 18 148/66 (93) 85 05/28/20 07:00 70 18 143/63 (89) 87 05/28/20 07:00 70 18 143/63 (89) 87 05/28/20 06:55 70/30 05/28/20 06:45 77 18 129/71 (90) 87 05/28/20 06:35 67 18 100 05/28/20 06:30 64 17 65/48 (54) 71 05/28/20 06:15 61 19 101/51 (68) 76 05/28/20 06:10 100 05/28/20 06:00 60 05/28/20 06:00 61 22 94/54 (67) 68 05/28/20 05:45 60 16 91/49 (63) 67 05/28/20 05:39 60 17 77/50 (59) 61 05/28/20 05:30 63 13 80/54 (63) 71 05/28/20 05:00 69 24 117/60 (79) 94 05/28/20 04:45 68 20 122/56 (78) 94 05/28/20 04:30 71 24 112/52 (72) 94 05/28/20 04:15 70 21 111/65 (80) 94 05/28/20 04:00 100 05/28/20 04:00 71 21 113/48 (69) 93 05/28/20 04:00 80 05/28/20 04:00 Bi-pap 05/28/20 03:45 67 14 104/54 (71) 93 05/28/20 03:30 69 20 111/76 (88) 93 05/28/20 03:18 70 31 92 100 05/28/20 03:15 70 25 99/64 (76) 92 05/28/20 03:00 69 21 116/56 (76) 90 05/28/20 02:45 69 22 117/60 (79) 91 05/28/20 02:30 74 26 120/63 (82) 92 05/28/20 02:15 74 19 104/53 (70) 89 05/28/20 02:00 81 20 116/60 (78) 82 05/28/20 01:00 81 27 120/63 (82) 99 05/28/20 00:30 80 27 118/64 (82) 99 05/28/20 00:00 Bi-pap 05/28/20 00:00 98.4 77 24 111/71 (84) 95 05/28/20 00:00 100 05/28/20 00:00 82 05/27/20 23:30 79 24 115/58 (77) 88 05/27/20 23:00 72 20 104/56 (72) 94 05/27/20 22:56 70 31 97 100 05/27/20 22:30 70 25 110/63 (79) 88 05/27/20 22:00 67 23 108/66 (80) 94 05/27/20 21:30 67 28 111/63 (79) 79 05/27/20 21:15 78 21 118/65 (82) 100 05/27/20 21:00 128 23 105/68 (80) 96 05/27/20 20:46 120 125/94 05/27/20 20:45 127 24 125/94 (104) 99 05/27/20 20:30 119 18 111/61 (78) 97 05/27/20 20:15 121 20 124/64 (84) 97 05/27/20 20:00 123 25 112/65 (81) 100 05/27/20 20:00 94 05/27/20 20:00 Bi-pap 05/27/20 20:00 100 05/27/20 19:19 95 Bi-Pap 100 05/27/20 19:18 124 32 95 100 05/27/20 19:15 132 23 107/67 (80) 86 05/27/20 19:00 113 22 124/54 (77) 49 05/27/20 18:00 118 24 112/66 (81) 100 05/27/20 17:00 102 18 115/63 (80) 97 05/27/20 16:00 94 05/27/20 16:00 98.9 103 18 113/70 (84) 100 05/27/20 16:00 Bi-pap 05/27/20 16:00 100 05/27/20 15:00 87 30 100 100 05/27/20 15:00 100 24 109/53 (71) 100 05/27/20 14:30 99 23 108/72 (84) 100 05/27/20 14:00 92 23 110/67 (81) 100 05/27/20 13:45 100 24 109/53 (71) 100 05/27/20 13:30 105 23 119/72 (88) 97 05/27/20 13:15 100 24 102/66 (78) 100 05/27/20 13:00 97 24 120/109 (113) 100 General Appearance: no apparent distress, alert, on vent Neck: supple Cardiovascular: normal rate Respiratory/Chest: rhonchi - bilaterally Abdomen: normal bowel sounds, non tender, soft Extremities: no swelling Intake and Output 05/27/20 05/28/20 19:00 07:00 Intake Total 1091.671 ml 344.896 ml Output Total 425 ml 750 ml Balance 666.671 ml -405.104 ml Intake Free Water 30 ml IV Total 996.671 ml 134.896 ml Tube Feeding 95 ml 180 ml Output Urine Total 425 ml 750 ml Laboratory Tests Test 05/27/20 22:00 05/28/20 03:00 05/28/20 05:44 05/28/20 07:25 Vancomycin Level Trough 26.1 ug/mL (5.0-12.0) H White Blood Count 24.0 K/UL (4.8-10.8) *H Red Blood Count 4.49 M/UL (4.70-6.10) L Hemoglobin 13.1 G/DL (14.2-18.0) L Hematocrit 42.4 % (42.0-52.0) Mean Corpuscular Volume 94 FL (80-99) Mean Corpuscular Hemoglobin 29.2 PG (27.0-31.0) Mean Corpuscular Hemoglobin Concent 30.9 G/DL (32.0-36.0) L Red Cell Distribution Width 14.0 % (11.6-14.8) Platelet Count 458 K/UL (150-450) H Mean Platelet Volume 6.9 FL (6.5-10.1) Neutrophils (%) (Auto) % (45.0-75.0) Lymphocytes (%) (Auto) % (20.0-45.0) Monocytes (%) (Auto) % (1.0-10.0) Eosinophils (%) (Auto) % (0.0-3.0) Basophils (%) (Auto) % (0.0-2.0) Differential Total Cells Counted 100 Neutrophils % (Manual) 79 % (45-75) H Lymphocytes % (Manual) 7 % (20-45) L Monocytes % (Manual) 11 % (1-10) H Eosinophils % (Manual) 0 % (0-3) Basophils % (Manual) 0 % (0-2) Band Neutrophils 3 % (0-8) Platelet Estimate Adequate Platelet Morphology Normal Anisocytosis 1+ Sodium Level 133 MMOL/L (136-145) L Potassium Level 3.7 MMOL/L (3.5-5.1) Chloride Level 98 MMOL/L (98-107) Carbon Dioxide Level 31 MMOL/L (21-32) Anion Gap 4 mmol/L (5-15) L Blood Urea Nitrogen 20 mg/dL (7-18) H Creatinine 1.0 MG/DL (0.55-1.30) Estimat Glomerular Filtration Rate > 60 mL/min (>60) Glucose Level 173 MG/DL (74-106) H Calcium Level 8.5 MG/DL (8.5-10.1) Magnesium Level 2.2 MG/DL (1.8-2.4) Total Bilirubin 0.5 MG/DL (0.2-1.0) Aspartate Amino Transf (AST/SGOT) 35 U/L (15-37) Alanine Aminotransferase (ALT/SGPT) 23 U/L (12-78) Alkaline Phosphatase 83 U/L (46-116) C-Reactive Protein, Quantitative 39.6 mg/dL (0.00-0.90) H Total Protein 7.9 G/DL (6.4-8.2) Albumin 2.1 G/DL (3.4-5.0) L Globulin 5.8 g/dL Albumin/Globulin Ratio 0.4 (1.0-2.7) L Random Amikacin Level 21.0 MG/L Arterial Blood pH 7.090 (7.350-7.450) 7.232 (7.350-7.450) Arterial Blood Partial Pressure CO2 93.7 mmHg (35.0-45.0) *H 54.4 mmHg (35.0-45.0) H Arterial Blood Partial Pressure O2 42.6 mmHg (75.0-100.0) 45.6 mmHg (75.0-100.0) Arterial Blood HCO3 27.8 mmol/L (22.0-26.0) H 22.4 mmol/L (22.0-26.0) Arterial Blood Oxygen Saturation 63.8 % (95-100) *L 76.9 % (95-100) *L Arterial Blood Base Excess -4.0 (-2-2) L -5.5 (-2-2) L [place] Test Positive Positive Test 05/28/20 11:27 Arterial Blood pH 7.278 (7.350-7.450) Arterial Blood Partial Pressure CO2 59.5 mmHg (35.0-45.0) *H Arterial Blood Partial Pressure O2 54.7 mmHg (75.0-100.0) L Arterial Blood HCO3 27.2 mmol/L (22.0-26.0) H Arterial Blood Oxygen Saturation 86.9 % (95-100) *L Arterial Blood Base Excess -0.6 (-2-2) [place] Test Positive Microbiology Date/Time Source Procedure Growth Status 05/26/20 10:00 Urine,Clean Catch Urine Culture - Final Mixed Urogenital Contaminants Complete 05/26/20 09:55 Blood Blood Culture - Preliminary NO GROWTH AFTER 24 HOURS Resulted 05/26/20 09:45 Blood Blood Culture - Preliminary NO GROWTH AFTER 24 HOURS Resulted Objective duration of critial care cardiology [provided 45 min Carrillo Zamudio MD May 28, 2020 12:49
[2020-05-28] MEDS: LORazepam Inj 2mg/ml 1ml IV PRN ×2 (12:59→23:33)
[2020-05-28] MEDS ORDERED: Tubing IV Secondary IV ONE (15:32)
[2020-05-28] MEDS ORDERED: NS 275ml ONE (15:32)
--- NOTE | 2020-05-28 15:56 | Infectious Diseases Prog Note ---
Assessment/Plan Assessment/Plan ASSESSMENT AND PLAN: 1. sepsis/shock, leukocytosis, fevers, ? bacterial pneumonia vs chf, ? covid-19 infection with pna, rapid covid-19 test negative x 1 respirator failure, vent, off pressors today, fio2-100 % - change antibiotics to meropenem, doxycycline, vancomycin - start dexamethasone - check sputum culture, covid-19 pcr testing, mycoplasma, legionella - monitor labs and chest x-ray - d/w with primary team and pulmonary - d/w RN - condition critical 2. Hypoxia/vent - treatment per Pulmonary Medicine. 3. High-flow O2. 4. Dysphagia, also aspiration pneumonia risk. 5. Anemia. 6. Lung cancer. 7. Atrial fibrillation. 8. G-tube. 9. Dysphagia. 10. Hypertension. 11. No known drug allergies. 12. Social history is negative. 13. Family history is noncontributory. 14. MAR is noted. 15. Case was discussed with RN. 16. Continue treatment per primary consultants. 17. The patient is also at risk for aspiration pneumonia in addition to community-acquired pneumonia. Subjective Constitutional: Reports: fatigue, other - intubated, was on pressors, now off; Denies: fever HEENT: Reports: congestion Respiratory: Reports: shortness of breath Cardiovascular: Reports: other - no pressors Gastrointestinal/Abdominal: Denies: nausea, diarrhea Genitourinary: Reports: other - + lópez Neurologic: Reports: weakness, other - sedated Psychiatric: Reports: other - NA Skin: Denies: rash Hematologic: Denies: bleeding Musculoskeletal: Reports: other - NA Allergies: Coded Allergies: No Known Allergies (Unverified , 05/23/20) Objective Last 24 Hour Vital Signs Date Time Temp Pulse Resp B/P (MAP) Pulse Ox O2 Delivery O2 Flow Rate FiO2 05/28/20 14:31 64 18 100 05/28/20 14:00 68 21 96/56 (69) 93 05/28/20 13:29 70 16 107/58 93 05/28/20 13:00 65 22 120/74 (89) 91 05/28/20 12:59 62 18 114/70 87 05/28/20 12:00 97.3 63 20 107/94 (98) 98 05/28/20 12:00 Endotracheal Tube 05/28/20 12:00 100 05/28/20 11:30 62 18 100 05/28/20 11:00 64 25 114/70 (85) 87 05/28/20 10:00 85 26 140/69 (92) 78 05/28/20 09:42 93 132/66 05/28/20 09:00 93 28 132/66 (88) 80 05/28/20 08:30 91 21 137/64 (88) 81 05/28/20 08:15 91 28 135/61 (85) 83 05/28/20 08:00 Endotracheal Tube 05/28/20 08:00 97.5 92 0 144/65 (91) 84 05/28/20 08:00 100 05/28/20 07:46 90 05/28/20 07:30 75 17 140/56 (84) 80 05/28/20 07:20 73 18 139/57 (84) 82 05/28/20 07:15 72 18 148/66 (93) 85 05/28/20 07:00 70 18 143/63 (89) 87 05/28/20 07:00 70 18 143/63 (89) 87 05/28/20 06:55 70/30 05/28/20 06:45 77 18 129/71 (90) 87 05/28/20 06:35 67 18 100 05/28/20 06:30 64 17 65/48 (54) 71 05/28/20 06:15 61 19 101/51 (68) 76 05/28/20 06:10 100 05/28/20 06:00 60 05/28/20 06:00 61 22 94/54 (67) 68 05/28/20 05:45 60 16 91/49 (63) 67 05/28/20 05:39 60 17 77/50 (59) 61 05/28/20 05:30 63 13 80/54 (63) 71 05/28/20 05:00 69 24 117/60 (79) 94 05/28/20 04:45 68 20 122/56 (78) 94 05/28/20 04:30 71 24 112/52 (72) 94 05/28/20 04:15 70 21 111/65 (80) 94 05/28/20 04:00 100 05/28/20 04:00 71 21 113/48 (69) 93 11/24/20 04:00 80 05/28/20 04:00 Bi-pap 05/28/20 03:45 67 14 104/54 (71) 93 05/28/20 03:30 69 20 111/76 (88) 93 05/28/20 03:18 70 31 92 100 05/28/20 03:15 70 25 99/64 (76) 92 05/28/20 03:00 69 21 116/56 (76) 90 05/28/20 02:45 69 22 117/60 (79) 91 05/28/20 02:30 74 26 120/63 (82) 92 05/28/20 02:15 74 19 104/53 (70) 89 05/28/20 02:00 81 20 116/60 (78) 82 05/28/20 01:00 81 27 120/63 (82) 99 05/28/20 00:30 80 27 118/64 (82) 99 05/28/20 00:00 Bi-pap 05/28/20 00:00 98.4 77 24 111/71 (84) 95 05/28/20 00:00 100 05/28/20 00:00 82 05/27/20 23:30 79 24 115/58 (77) 88 05/27/20 23:00 72 20 104/56 (72) 94 05/27/20 22:56 70 31 97 100 05/27/20 22:30 70 25 110/63 (79) 88 05/27/20 22:00 67 23 108/66 (80) 94 05/27/20 21:30 67 28 111/63 (79) 79 05/27/20 21:15 78 21 118/65 (82) 100 05/27/20 21:00 128 23 105/68 (80) 96 05/27/20 20:46 120 125/94 05/27/20 20:45 127 24 125/94 (104) 99 05/27/20 20:30 119 18 111/61 (78) 97 05/27/20 20:15 121 20 124/64 (84) 97 05/27/20 20:00 123 25 112/65 (81) 100 05/27/20 20:00 94 05/27/20 20:00 Bi-pap 05/27/20 20:00 100 05/27/20 19:19 95 Bi-Pap 100 05/27/20 19:18 124 32 95 100 05/27/20 19:15 132 23 107/67 (80) 86 05/27/20 19:00 113 22 124/54 (77) 49 05/27/20 18:00 118 24 112/66 (81) 100 05/27/20 17:00 102 18 115/63 (80) 97 05/27/20 16:00 94 05/27/20 16:00 98.9 103 18 113/70 (84) 100 05/27/20 16:00 Bi-pap 05/27/20 16:00 100 Height (Feet): 5 Height (Inches): 10.00 Weight (Pounds): 168 General Appearance: other - on vent, fio2-100 %, no pressors HEENT: normocephalic, atraumatic, anicteric, other - oral - intubated Respiratory/Chest: crackles/rales, rhonchi - bilaterally Cardiovascular: normal rate, regular rhythm, no gallop/murmur, no JVD Abdomen: normal bowel sounds, soft, non tender, no organomegaly, non distended Genitourinary: other - + lópez - urine clear Extremities: no cyanosis Skin: no rash Neurologic/Psychiatric: 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 There are bilateral pulmonary opacities, right greater than left which have worsened/increased compared to the previous study, consistent with pneumonia. There is dense opacity right lung base suggestive of effusion. Pleural space: No pneumothorax. Heart: Unremarkable. No cardiomegaly. Mediastinum: Unremarkable. Bones/joints: Unremarkable. Tubes, lines and devices: An endotracheal tube is in place with the tip passing 4.5 cm above the crissy. A right internal jugular central venous catheter tip overlies the SVC/right atrial region. A permanent pacemaker is unchanged in position. IMPRESSION: Interval worsening of significant pneumonia, right greater than left. Microbiology Date/Time Source Procedure Growth Status 05/27/20 22:20 Sputum Gram Stain - Final Resulted 05/27/20 22:20 Sputum Sputum Culture Pending Resulted 05/26/20 10:00 Urine,Clean Catch Urine Culture - Final Mixed Urogenital Contaminants Complete 05/26/20 09:55 Blood Blood Culture - Preliminary NO GROWTH AFTER 24 HOURS Resulted 05/26/20 09:45 Blood Blood Culture - Preliminary NO GROWTH AFTER 24 HOURS Resulted Laboratory Tests Test 05/27/20 22:00 05/28/20 03:00 05/28/20 05:44 05/28/20 07:25 Vancomycin Level Trough 26.1 ug/mL (5.0-12.0) H White Blood Count 24.0 K/UL (4.8-10.8) *H Red Blood Count 4.49 M/UL (4.70-6.10) L Hemoglobin 13.1 G/DL (14.2-18.0) L Hematocrit 42.4 % (42.0-52.0) Mean Corpuscular Volume 94 FL (80-99) Mean Corpuscular Hemoglobin 29.2 PG (27.0-31.0) Mean Corpuscular Hemoglobin Concent 30.9 G/DL (32.0-36.0) L Red Cell Distribution Width 14.0 % (11.6-14.8) Platelet Count 458 K/UL (150-450) H Mean Platelet Volume 6.9 FL (6.5-10.1) Neutrophils (%) (Auto) % (45.0-75.0) Lymphocytes (%) (Auto) % (20.0-45.0) Monocytes (%) (Auto) % (1.0-10.0) Eosinophils (%) (Auto) % (0.0-3.0) Basophils (%) (Auto) % (0.0-2.0) Differential Total Cells Counted 100 Neutrophils % (Manual) 79 % (45-75) H Lymphocytes % (Manual) 7 % (20-45) L Monocytes % (Manual) 11 % (1-10) H Eosinophils % (Manual) 0 % (0-3) Basophils % (Manual) 0 % (0-2) Band Neutrophils 3 % (0-8) Platelet Estimate Adequate Platelet Morphology Normal Anisocytosis 1+ Sodium Level 133 MMOL/L (136-145) L Potassium Level 3.7 MMOL/L (3.5-5.1) Chloride Level 98 MMOL/L (98-107) Carbon Dioxide Level 31 MMOL/L (21-32) Anion Gap 4 mmol/L (5-15) L Blood Urea Nitrogen 20 mg/dL (7-18) H Creatinine 1.0 MG/DL (0.55-1.30) Estimat Glomerular Filtration Rate > 60 mL/min (>60) Glucose Level 173 MG/DL (74-106) H Calcium Level 8.5 MG/DL (8.5-10.1) Magnesium Level 2.2 MG/DL (1.8-2.4) Total Bilirubin 0.5 MG/DL (0.2-1.0) Aspartate Amino Transf (AST/SGOT) 35 U/L (15-37) Alanine Aminotransferase (ALT/SGPT) 23 U/L (12-78) Alkaline Phosphatase 83 U/L (46-116) C-Reactive Protein, Quantitative 39.6 mg/dL (0.00-0.90) H Total Protein 7.9 G/DL (6.4-8.2) Albumin 2.1 G/DL (3.4-5.0) L Globulin 5.8 g/dL Albumin/Globulin Ratio 0.4 (1.0-2.7) L Random Amikacin Level 21.0 MG/L Arterial Blood pH 7.090 (7.350-7.450) 7.232 (7.350-7.450) Arterial Blood Partial Pressure CO2 93.7 mmHg (35.0-45.0) *H 54.4 mmHg (35.0-45.0) H Arterial Blood Partial Pressure O2 42.6 mmHg (75.0-100.0) 45.6 mmHg (75.0-100.0) Arterial Blood HCO3 27.8 mmol/L (22.0-26.0) H 22.4 mmol/L (22.0-26.0) Arterial Blood Oxygen Saturation 63.8 % (95-100) *L 76.9 % (95-100) *L Arterial Blood Base Excess -4.0 (-2-2) L -5.5 (-2-2) L Alton Test Positive Positive Test 05/28/20 11:27 05/28/20 13:05 Arterial Blood pH 7.278 (7.350-7.450) 7.306 (7.350-7.450) Arterial Blood Partial Pressure CO2 59.5 mmHg (35.0-45.0) *H 51.5 mmHg (35.0-45.0) H Arterial Blood Partial Pressure O2 54.7 mmHg (75.0-100.0) L 54.8 mmHg (75.0-100.0) L Arterial Blood HCO3 27.2 mmol/L (22.0-26.0) H 25.1 mmol/L (22.0-26.0) Arterial Blood Oxygen Saturation 86.9 % (95-100) *L 87.8 % (95-100) *L Arterial Blood Base Excess -0.6 (-2-2) -1.7 (-2-2) Alton Test Positive Positive Current Medications Medications (Trade) Dose Ordered Sig/Joan Route PRN Reason Start Time Stop Time Status Last Admin Dose Admin Apixaban (Eliquis) 5 mg BID GT 05/23/20 18:00 08/21/20 17:59 05/28/20 08:45 Chlorhexidine Gluconate (Zohreh-Hex 2%) 1 applic DAILY@2000 TOPIC 05/23/20 20:00 08/21/20 19:59 05/27/20 20:05 Dexamethasone Sodium Phosphate (Decadron 10mg/ ml Inj) 6 mg DAILY IV 05/29/20 09:00 08/27/20 08:59 UNV Dextrose (Dextrose 50%) 25 ml Q30M PRN IV Hypoglycemia 05/23/20 05:15 08/21/20 05:14 Dextrose (Dextrose 50%) 50 ml Q30M PRN IV Hypoglycemia 05/23/20 05:15 08/21/20 05:14 Doxycycline Hyclate 100 mg/ Dextrose 110 ml @ 110 mls/hr Q12HR IV 05/28/20 21:00 06/04/20 20:59 UNV Lorazepam (Ativan 2mg/ml 1ml) 1 mg BID PRN IV For Anxiety 05/26/20 10:30 06/02/20 10:29 05/28/20 12:59 Meropenem 1 gm/ Sodium Chloride 100 ml @ 200 mls/hr Q8HR IVPB 05/28/20 22:00 06/02/20 21:59 Metoprolol Tartrate (Lopressor) 75 mg Q12HR GT 05/27/20 20:30 08/25/20 20:29 05/28/20 09:42 Norepinephrine Bitartrate 250 ml @ 0 mls/hr Q24H IV 05/28/20 06:45 05/31/20 06:32 05/28/20 06:55 Oxycodone HCl (Roxicodone) 5 mg Q4H PRN GT pain 4-10 05/23/20 22:00 05/30/20 21:59 05/28/20 01:46 Vancomycin HCl (Vanco pharmacy to dose) 1 ea DAILY PRN MISC Per rx protocol 05/26/20 08:00 06/25/20 07:59 Vancomycin HCl 1 gm/Dextrose 275 ml @ 183.708 mls/hr Q12HR IVPB 05/28/20 09:00 06/02/20 08:59 05/28/20 08:44 Aury Varela MD May 28, 2020 15:56
[2020-05-28] MEDS: propofoL 1,000mg/100ml 100 ML IV PRN (16:00)
[2020-05-28] MEDS: Dyna-Hex 2% Top Sol 2oz TOPIC SCH (19:51)
[2020-05-28] MEDS: Doxycycline Hyclate 100 MG in D5W 110 ML IV SCH (21:13)
--- NOTE | 2020-05-28 22:19 | General Progress Note ---
Subjective Date patient seen: May 28, 2020 ROS Limited/Unobtainable: Yes - patient intubated Allergies: Coded Allergies: No Known Allergies (Unverified , 05/23/20) Subjective Patient intubated this morning. Continuing tube feeds. Objective Last 24 Hour Vital Signs Date Time Temp Pulse Resp B/P (MAP) Pulse Ox O2 Delivery O2 Flow Rate FiO2 05/28/20 21:00 100 97/54 05/28/20 20:15 26 109/64 Mechanical Ventilator 100 05/28/20 19:15 24 130/60 Endotracheal Tube 100 05/28/20 19:01 93 23 100 05/28/20 19:00 100 24 112/63 (79) 91 05/28/20 18:30 96 27 128/52 (77) 84 05/28/20 18:15 26 128/52 Endotracheal Tube 82 05/28/20 18:00 94 24 118/54 (75) 94 05/28/20 18:00 94 24 118/54 (75) 94 05/28/20 17:30 96 24 109/57 (74) 93 05/28/20 17:15 25 109/57 Endotracheal Tube 100 05/28/20 17:15 89 25 106/65 (79) 93 05/28/20 17:00 90 20 106/68 (81) 93 05/28/20 16:45 86 24 108/51 (70) 95 05/28/20 16:30 84 23 112/60 (77) 93 05/28/20 16:15 97.7 80 25 122/106 (111) 94 05/28/20 16:15 22 122/106 Endotracheal Tube 100 05/28/20 16:00 Endotracheal Tube 05/28/20 16:00 81 05/28/20 16:00 100 05/28/20 16:00 18 96/56 Endotracheal Tube 100 05/28/20 16:00 77 21 114/69 (84) 96 05/28/20 16:00 77 22 123/59 (80) 92 05/28/20 15:14 79 05/28/20 15:00 79 25 123/59 (80) 93 05/28/20 15:00 73 25 114/69 (84) 95 05/28/20 14:31 64 18 100 05/28/20 14:00 68 21 96/56 (69) 93 05/28/20 13:29 70 16 107/58 93 05/28/20 13:00 65 22 120/74 (89) 91 05/28/20 12:59 62 18 114/70 87 05/28/20 12:00 97.3 63 20 107/94 (98) 98 05/28/20 12:00 Endotracheal Tube 05/28/20 12:00 100 05/28/20 11:30 62 18 100 05/28/20 11:00 64 25 114/70 (85) 87 05/28/20 10:00 85 26 140/69 (92) 78 05/28/20 09:42 93 132/66 05/28/20 09:00 93 28 132/66 (88) 80 05/28/20 08:30 91 21 137/64 (88) 81 05/28/20 08:15 91 28 135/61 (85) 83 05/28/20 08:00 Endotracheal Tube 05/28/20 08:00 97.5 92 0 144/65 (91) 84 05/28/20 08:00 100 05/28/20 07:46 90 05/28/20 07:30 75 17 140/56 (84) 80 05/28/20 07:20 73 18 139/57 (84) 82 05/28/20 07:15 72 18 148/66 (93) 85 05/28/20 07:00 70 18 143/63 (89) 87 05/28/20 07:00 70 18 143/63 (89) 87 05/28/20 06:55 70/30 05/28/20 06:45 77 18 129/71 (90) 87 05/28/20 06:35 67 18 100 05/28/20 06:30 64 17 65/48 (54) 71 05/28/20 06:15 61 19 101/51 (68) 76 05/28/20 06:10 100 05/28/20 06:00 60 05/28/20 06:00 61 22 94/54 (67) 68 05/28/20 05:45 60 16 91/49 (63) 67 05/28/20 05:39 60 17 77/50 (59) 61 05/28/20 05:30 63 13 80/54 (63) 71 05/28/20 05:00 69 24 117/60 (79) 94 05/28/20 04:45 68 20 122/56 (78) 94 05/28/20 04:30 71 24 112/52 (72) 94 05/28/20 04:15 70 21 111/65 (80) 94 05/28/20 04:00 100 05/28/20 04:00 71 21 113/48 (69) 93 05/28/20 04:00 80 05/28/20 04:00 Bi-pap 05/28/20 03:45 67 14 104/54 (71) 93 05/28/20 03:30 69 20 111/76 (88) 93 05/28/20 03:18 70 31 92 100 05/28/20 03:15 70 25 99/64 (76) 92 05/28/20 03:00 69 21 116/56 (76) 90 05/28/20 02:45 69 22 117/60 (79) 91 05/28/20 02:30 74 26 120/63 (82) 92 05/28/20 02:15 74 19 104/53 (70) 89 05/28/20 02:00 81 20 116/60 (78) 82 05/28/20 01:00 81 27 120/63 (82) 99 05/28/20 00:30 80 27 118/64 (82) 99 05/28/20 00:00 Bi-pap 05/28/20 00:00 98.4 77 24 111/71 (84) 95 05/28/20 00:00 100 05/28/20 00:00 82 05/27/20 23:30 79 24 115/58 (77) 88 05/27/20 23:00 72 20 104/56 (72) 94 05/27/20 22:56 70 31 97 100 05/27/20 22:30 70 25 110/63 (79) 88 Intake and Output 05/27/20 05/28/20 19:00 07:00 Intake Total 1091.671 ml 344.896 ml Output Total 425 ml 750 ml Balance 666.671 ml -405.104 ml Intake Free Water 30 ml IV Total 996.671 ml 134.896 ml Tube Feeding 95 ml 180 ml Output Urine Total 425 ml 750 ml Laboratory Tests 05/28/20 03:00: White Blood Count 24.0*H, Red Blood Count 4.49L, Hemoglobin 13.1L, Hematocrit 42.4, Mean Corpuscular Volume 94, Mean Corpuscular Hemoglobin 29.2, Mean Corpuscular Hemoglobin Concent 30.9L, Red Cell Distribution Width 14.0, Platelet Count 458H, Mean Platelet Volume 6.9, Neutrophils (%) (Auto) , Lymphocytes (%) (Auto) , Monocytes (%) (Auto) , Eosinophils (%) (Auto) , Basophils (%) (Auto) , Differential Total Cells Counted 100, Neutrophils % (Manual) 79H, Lymphocytes % (Manual) 7L, Monocytes % (Manual) 11H, Eosinophils % (Manual) 0, Basophils % (Manual) 0, Band Neutrophils 3, Platelet Estimate Adequate, Platelet Morphology Normal, Anisocytosis 1+, Sodium Level 133L, Potassium Level 3.7, Chloride Level 98, Carbon Dioxide Level 31, Anion Gap 4L, Blood Urea Nitrogen 20H, Creatinine 1.0, Estimat Glomerular Filtration Rate > 60, Glucose Level 173H, Calcium Level 8.5, Magnesium Level 2.2, Total Bilirubin 0.5, Aspartate Amino Transf (AST/SGOT) 35, Alanine Aminotransferase (ALT/SGPT) 23, Alkaline Phosphatase 83, C-Reactive Protein, Quantitative 39.6H, Total Protein 7.9, Albumin 2.1L, Globulin 5.8, Albumin/Globulin Ratio 0.4L, Triglycerides Level 61, Random Amikacin Level 21.0 05/28/20 05:44: Arterial Blood pH 7.090*L, Arterial Blood Partial Pressure CO2 93.7*H, Arterial Blood Partial Pressure O2 42.6*L, Arterial Blood HCO3 27.8H, Arterial Blood Oxygen Saturation 63.8*L, Arterial Blood Base Excess -4.0L, Alton Test Positive 05/28/20 07:25: Arterial Blood pH 7.232*L, Arterial Blood Partial Pressure CO2 54.4H, Arterial Blood Partial Pressure O2 45.6*L, Arterial Blood HCO3 22.4, Arterial Blood Oxygen Saturation 76.9*L, Arterial Blood Base Excess -5.5L, Alton Test Positive 05/28/20 11:27: Arterial Blood pH 7.278L, Arterial Blood Partial Pressure CO2 59.5*H, Arterial Blood Partial Pressure O2 54.7L, Arterial Blood HCO3 27.2H, Arterial Blood Oxygen Saturation 86.9*L, Arterial Blood Base Excess -0.6, Alton Test Positive 05/28/20 13:05: Arterial Blood pH 7.306L, Arterial Blood Partial Pressure CO2 51.5H, Arterial Blood Partial Pressure O2 54.8L, Arterial Blood HCO3 25.1, Arterial Blood Oxygen Saturation 87.8*L, Arterial Blood Base Excess -1.7, Alton Test Positive 05/28/20 16:32: Urine Legionella Antigen [Pending] Height (Feet): 5 Height (Inches): 10.00 Weight (Pounds): 168 Objective General Appearance: intubated EENT: intubated, tube secured in place Neck: normal alignment, supple Cardiovascular: regularly irregular, no JVD, tachycardia Respiratory/Chest: ventilator sounds Abdomen: non tender, soft, other - G-tube Genitourinary/Rectal: other - Adorno Extremities: normal range of motion Edema: no edema noted Arm (L), no edema noted Arm (R), no edema noted Leg (L), no edema noted Leg (R), no edema noted Pedal (L), no edema noted Pedal (R), no edema noted Generalized Neurologic: unable to assess Skin: normal pigmentation, warm/dry Assessment/Plan Status: deteriorating Assessment/Plan: A: #Acute hypoxic respiratory failure status post BiPAP #Acute encephalopathy likely secondary to hypoxia #Atrial fibrillation with rapid ventricular response on blood thinner 2/2 CAP versus PE #Acute on ?chronic decompensated heart failure 2/2 tachyarrhythmia induced cardiomyopathy versus PE #Community-acquired pneumonia #History of lung cancer #Essential hypertension #G-tube dependent P: Now intubated on ventilator ABG worse today Systolic blood pressure stable, no indication for pressor support at this time Keep MAP greater than 65 Started on the amiodarone per cardiology, still significantly tachycardic Preliminary echo report showing normal EF, RSVP 25, and undetermined diastolic Chest x-ray today shows moderate pulmonary congestion, cardiomegaly Continue Vanco, cefepime, Flagyl for possible right lower lobe pneumonia Follow-up repeat blood cultures, urinalysis given increased leukocytosis and inflammatory markers. No diarrhea Follow-up CTA to rule out PE: Etiology of respiratory failure and A. fib unsure if true CHF exacerbation need to rule out intraparenchymal diseases and possible PE Continue Lasix 40 mg IV twice daily Continue metoprolol 25 mg twice daily continue home Eliquis 5 mg twice daily Start tube feeds Nutritional consult Consult Dr. Akers, pulmonology, recs appreciated Consult Dr. Zamudio, cardiology, recs appreciated CM CODE STATUS: Full GI: Home omeprazole Diet: G-tube feeds DVT prophylaxis: Eliquis Dispo: Pending stabilization of respiratory failure Time spent on this encounter was 49 minutes which included 32 minutes of counseling and care coordination and critical care time. Review of ABG, chest imaging, need for pressor support, mechanical ventilation support reviewed by me and along with discussion with pulmonology and cardiology. I discussed with the nurse at bedside. Time of note may not reflect time patient was seen. Alli Levy M.D. May 28, 2020 22:19
[2020-05-29] VITALS (41 sets, daily range): BP systolic 88–130; BP diastolic 48–87
[2020-05-29 04:50] LABS: HEMATOCRIT 37.7 % (42.0-52.0); HEMOGLOBIN 11.5 G/DL (14.2-18.0); MEAN CORPUSCULAR VOLUME 94 FL (80-99); PLATELET COUNT 355 K/UL (150-450); RED BLOOD COUNT 4.03 M/UL (4.70-6.10); WHITE BLOOD COUNT 18.6 K/UL (4.8-10.8)
[2020-05-29 05:10] LABS: ALANINE AMINOTRANSFERASE 11 U/L (12-78); ALBUMIN 1.6 G/DL (3.4-5.0); ALBUMIN/GLOBULIN RATIO 0.3 (1.0-2.7); ALKALINE PHOSPHATASE 74 U/L (46-116); ANION GAP 7 mmol/L (5-15); ASPARTATE AMINO TRANSFERASE 26 U/L (15-37); BILIRUBIN,TOTAL 0.5 MG/DL (0.2-1.0); BLOOD UREA NITROGEN 16 mg/dL (7-18); CARBON DIOXIDE 27 MMOL/L (21-32); CHLORIDE 102 MMOL/L (98-107); CREATININE 1.1 MG/DL (0.55-1.30); POTASSIUM 3.5 MMOL/L (3.5-5.1); SODIUM 135 MMOL/L (136-145)
[2020-05-29] MEDS: Norepinephrine 4mg/NS Premix 250 ML IV SCH (06:45)
[2020-05-29] MEDS: Doxycycline Hyclate 100 MG in D5W 110 ML IV SCH ×2 (08:28→21:25)
[2020-05-29] MEDS: dexAMETHasone 10mg/ml Inj IV SCH (08:28)
[2020-05-29] MEDS: Eliquis 5mg tablet GT SCH (08:29)
[2020-05-29] MEDS: Vancomycin 1gm in D5W 275ml IVPB SCH ×2 (09:33→21:26)
[2020-05-29] MEDS: propofoL 1,000mg/100ml 100 ML IV PRN (09:34)
--- NOTE | 2020-05-29 10:16 | Pulmonology Progress Note ---
Subjective ROS Limited/Unobtainable: Yes - patient intubated Interval Events: Remains intubated Constitutional: Reports: fatigue, other - intubated, was on pressors, now off; Denies: fever HEENT: Repors: no symptoms Respiratory: Reports: no symptoms Cardiovascular: Reports: no symptoms Gastrointestinal/Abdominal: Denies: nausea, diarrhea Genitourinary: Reports: no symptoms Neurologic: Reports: no symptoms Psychiatric: Reports: other - NA Skin: Denies: rash Musculoskeletal: Reports: other - NA Allergies: Coded Allergies: No Known Allergies (Unverified , 05/23/20) Objective Last 24 Hour Vital Signs Date Time Temp Pulse Resp B/P (MAP) Pulse Ox O2 Delivery O2 Flow Rate FiO2 05/29/20 09:34 31 90/54 Endotracheal Tube 100 05/29/20 09:00 99 31 88/51 (63) 91 05/29/20 08:30 154 32 113/76 (88) 96 05/29/20 08:28 143 116/84 05/29/20 08:00 97.8 141 38 117/48 (71) 94 05/29/20 08:00 100 05/29/20 08:00 Endotracheal Tube 05/29/20 07:17 145 28 100 05/29/20 07:00 143 24 116/84 (95) 93 05/29/20 06:45 110/60 05/29/20 06:15 28 96/53 Mechanical Ventilator 100 05/29/20 06:00 100.0 136 26 94/73 (80) 98 05/29/20 05:45 140 25 112/79 (90) 97 05/29/20 05:30 137 38 111/62 (78) 98 05/29/20 05:15 27 96/54 Mechanical Ventilator 100 05/29/20 05:00 138 32 110/58 (75) 98 05/29/20 04:15 27 107/53 Mechanical Ventilator 100 05/29/20 04:00 Endotracheal Tube 05/29/20 04:00 131 05/29/20 04:00 99.4 130 21 96/59 (71) 97 05/29/20 04:00 100 05/29/20 03:30 127 22 98/61 (73) 97 05/29/20 03:15 25 98/61 Mechanical Ventilator 100 05/29/20 03:07 135 25 100 05/29/20 03:00 126 33 111/53 (72) 98 05/29/20 02:30 129 25 99/51 (67) 98 05/29/20 02:15 24 99/51 Endotracheal Tube 100 05/29/20 02:00 129 34 111/65 (80) 95 05/29/20 01:30 133 26 119/87 (98) 93 05/29/20 01:15 129 26 108/59 (75) 94 05/29/20 01:15 28 119/87 Mechanical Ventilator 100.0 05/29/20 01:00 125 25 110/60 (77) 95 05/29/20 00:30 122 27 110/57 (74) 94 05/29/20 00:15 23 110/57 Mechanical Ventilator 100 05/29/20 00:09 113 28 98/56 100 05/29/20 00:00 100 05/29/20 00:00 99.0 115 23 98/56 (70) 96 05/29/20 00:00 Endotracheal Tube 05/29/20 00:00 117 05/28/20 23:33 108 30 90/60 98 05/28/20 23:30 114 44 90/60 (70) 95 05/28/20 23:24 117 28 100 05/28/20 23:15 28 110/81 Mechanical Ventilator 100 05/28/20 23:00 115 35 110/40 (63) 95 05/28/20 22:30 112 24 110/81 (91) 98 05/28/20 22:15 29 119/56 Mechanical Ventilator 100 05/28/20 22:00 114 27 119/56 (77) 96 05/28/20 21:30 109 27 111/65 (80) 95 05/28/20 21:15 28 97/54 Mechanical Ventilator 100 05/28/20 21:00 107 27 97/54 (68) 95 05/28/20 21:00 100 97/54 05/28/20 20:45 104 31 121/70 (87) 94 05/28/20 20:30 107 35 104/53 (70) 95 05/28/20 20:15 26 109/64 Mechanical Ventilator 100 05/28/20 20:15 101 29 103/62 (76) 98 05/28/20 20:00 Endotracheal Tube 05/28/20 20:00 99.0 101 29 109/64 (79) 92 05/28/20 20:00 100 05/28/20 20:00 100 05/28/20 19:45 106 40 116/62 (80) 94 05/28/20 19:30 101 24 94/49 (64) 05/28/20 19:15 24 130/60 Endotracheal Tube 100 05/28/20 19:01 93 23 100 05/28/20 19:00 100 24 112/63 (79) 91 05/28/20 18:30 96 27 128/52 (77) 84 05/28/20 18:15 26 128/52 Endotracheal Tube 82 05/28/20 18:00 94 24 118/54 (75) 94 05/28/20 18:00 94 24 118/54 (75) 94 05/28/20 17:30 96 24 109/57 (74) 93 05/28/20 17:15 25 109/57 Endotracheal Tube 100 05/28/20 17:15 89 25 106/65 (79) 93 05/28/20 17:00 90 20 106/68 (81) 93 05/28/20 16:45 86 24 108/51 (70) 95 05/28/20 16:30 84 23 112/60 (77) 93 05/28/20 16:15 97.7 80 25 122/106 (111) 94 05/28/20 16:15 22 122/106 Endotracheal Tube 100 05/28/20 16:00 Endotracheal Tube 05/28/20 16:00 81 05/28/20 16:00 100 05/28/20 16:00 18 96/56 Endotracheal Tube 100 05/28/20 16:00 77 21 114/69 (84) 96 05/28/20 16:00 77 22 123/59 (80) 92 05/28/20 15:14 79 05/28/20 15:00 79 25 123/59 (80) 93 05/28/20 15:00 73 25 114/69 (84) 95 05/28/20 14:31 64 18 100 05/28/20 14:00 68 21 96/56 (69) 93 05/28/20 13:29 70 16 107/58 93 05/28/20 13:00 65 22 120/74 (89) 91 05/28/20 12:59 62 18 114/70 87 05/28/20 12:00 97.3 63 20 107/94 (98) 98 05/28/20 12:00 Endotracheal Tube 05/28/20 12:00 100 05/28/20 11:30 62 18 100 05/28/20 11:00 64 25 114/70 (85) 87 Intake and Output 05/28/20 05/29/20 19:00 07:00 Intake Total 477.214 ml 942.280 ml Output Total 440 ml 560 ml Balance 37.214 ml 382.280 ml Intake Free Water 30 ml IV Total 447.214 ml 732.280 ml Tube Feeding 30 ml 180 ml Output Urine Total 440 ml 560 ml General Appearance: no acute distress HEENT: normocephalic Respiratory: chest wall non-tender, decreased breath sounds Cardiovascular: normal peripheral pulses, normal rate Abdomen: normal bowel sounds Microbiology Date/Time Source Procedure Growth Status 05/27/20 22:20 Sputum Gram Stain - Final Resulted 05/27/20 22:20 Sputum Sputum Culture - Preliminary NORMAL UPPER RESPIRATORY BLAYNE AT 24 ... Resulted Laboratory Tests 05/28/20 11:27: Arterial Blood pH 7.278L, Arterial Blood Partial Pressure CO2 59.5*H, Arterial Blood Partial Pressure O2 54.7L, Arterial Blood HCO3 27.2H, Arterial Blood Oxyg en Saturation 86.9*L, Arterial Blood Base Excess -0.6, Alton Test Positive 05/28/20 13:05: Arterial Blood pH 7.306L, Arterial Blood Partial Pressure CO2 51.5H, Arterial Blood Partial Pressure O2 54.8L, Arterial Blood HCO3 25.1, Arterial Blood Oxygen Saturation 87.8*L, Arterial Blood Base Excess -1.7, Altno Test Positive 05/28/20 16:32: Urine Legionella Antigen [Pending] 05/29/20 04:00: White Blood Count 18.6H, Red Blood Count 4.03L, Hemoglobin 11.5L, Hematocrit 37.7L, Mean Corpuscular Volume 94, Mean Corpuscular Hemoglobin 28.6, Mean Corpuscular Hemoglobin Concent 30.5L, Red Cell Distribution Width 14.0, Platelet Count 355, Mean Platelet Volume 6.9, Neutrophils (%) (Auto) , Lymphocytes (%) (Auto) , Monocytes (%) (Auto) , Eosinophils (%) (Auto) , Basophils (%) (Auto) , Differential Total Cells Counted 100, Neutrophils % (Manual) 75, Lymphocytes % (Manual) 12L, Monocytes % (Manual) 13H, Eosinophils % (Manual) 0, Basophils % (Manual) 0, Band Neutrophils 0, Platelet Estimate Adequate, Platelet Morphology Normal, Hypochromasia 1+, Sodium Level 135L, Potassium Level 3.5, Chloride Level 102, Carbon Dioxide Level 27, Anion Gap 7, Blood Urea Nitrogen 16, Creatinine 1.1, Estimat Glomerular Filtration Rate > 60, Glucose Level 165H, Calcium Level 8.0L, Total Bilirubin 0.5, Aspartate Amino Transf (AST/SGOT) 26, Alanine Aminotransferase (ALT/SGPT) 11L, Alkaline Phosphatase 74, Total Protein 6.3L, Albumin 1.6L, Globulin 4.7, Albumin/Globulin Ratio 0.3L, Mycoplasma pneumoniae IgG Antibody [Pending], Mycoplasma pneumoniae IgM Ab Titer [Pending] 05/29/20 08:40: Arterial Blood pH 7.344L, Arterial Blood Partial Pressure CO2 46.1H, Arterial Blood Partial Pressure O2 41.6*L, Arterial Blood HCO3 24.5, Arterial Blood Oxygen Saturation 76.9*L, Arterial Blood Base Excess -1.4, Alton Test Positive Current Medications Medications (Trade) Dose Ordered Sig/Joan Route PRN Reason Start Time Stop Time Status Last Admin Dose Admin Apixaban (Eliquis) 5 mg BID GT 05/23/20 18:00 08/21/20 17:59 05/29/20 08:29 Chlorhexidine Gluconate (Zohreh-Hex 2%) 1 applic DAILY@1999 TOPIC 05/23/20 20:00 08/21/20 19:59 05/28/20 19:51 Dexamethasone Sodium Phosphate (Decadron 10mg/ ml Inj) 6 mg DAILY IV 05/29/20 09:00 06/07/20 09:01 05/29/20 08:28 Dextrose (Dextrose 50%) 25 ml Q30M PRN IV Hypoglycemia 05/23/20 05:15 08/21/20 05:14 Dextrose (Dextrose 50%) 50 ml Q30M PRN IV Hypoglycemia 05/23/20 05:15 08/21/20 05:14 Doxycycline Hyclate 100 mg/ Dextrose 110 ml @ 110 mls/hr Q12HR IV 05/28/20 21:00 12/1/20 20:59 05/29/20 08:28 Lorazepam (Ativan 2mg/ml 1ml) 1 mg BID PRN IV For Anxiety 05/26/20 10:30 06/02/20 10:29 05/28/20 23:33 Meropenem 1 gm/ Sodium Chloride 100 ml @ 200 mls/hr Q8HR IVPB 05/28/20 22:00 06/02/20 21:59 05/29/20 05:51 Metoprolol Tartrate (Lopressor) 75 mg Q12HR GT 05/27/20 20:30 08/25/20 20:29 05/29/20 08:28 Norepinephrine Bitartrate 250 ml @ 0 mls/hr Q24H IV 05/28/20 06:45 05/31/20 06:32 05/28/20 06:55 Oxycodone HCl (Roxicodone) 5 mg Q4H PRN GT pain 4-10 05/23/20 22:00 05/30/20 21:59 05/28/20 01:46 Propofol 100 ml @ 0 mls/hr Q12H PRN IV Sedation 05/28/20 15:44 05/30/20 15:43 05/29/20 09:34 Vancomycin HCl (Vanco pharmacy to dose) 1 ea DAILY PRN MISC Per rx protocol 05/26/20 08:00 06/25/20 07:59 Vancomycin HCl 1 gm/Dextrose 275 ml @ 183.708 mls/hr Q12HR IVPB 05/28/20 09:00 06/02/20 08:59 05/29/20 09:33 Assessment/Plan Assessment/Plan IMPRESSION: 1. Decompensated congestive heart failure. 2. Permanent pacemaker. 3. Right pleural effusion. 4. History of lung cancer. 5. Hypoxic respiratory failure. DISCUSSION: 1. Agree with diuresis; 2. Intubated now; will continue 100% fiO2; PEEP 5; Vt 500; rate 18; check ABg in Am; remains hypoxic 3. COVID-19 testing is negative. 4. I will follow carefully. Kirstie Membreno Omar Syed MD May 29, 2020 10:16
[2020-05-29] MEDS ORDERED: Amikacin 1,000 MG in NS 110 ML IV SCH (15:00)
--- NOTE | 2020-05-29 15:21 | Infectious Diseases Prog Note ---
Assessment/Plan Assessment/Plan ASSESSMENT AND PLAN: 1. sepsis/shock, leukocytosis, fevers, ? bacterial pneumonia vs chf, ? covid-19 infection with pna, rapid covid-19 test negative x 1 respirator failure, vent, off pressors today, fio2-100 %, ? PE, covid-pcr negative - meropenem, doxycycline, vancomycin - dexamethasone - ? discontinue - check sputum culture, covid-19 pcr testing, mycoplasma, legionella - monitor labs and chest x-ray - per primary team and pulmonary - d/w RN - condition critical 2. Hypoxia/vent - treatment per Pulmonary Medicine. 3. High-flow O2. 4. Dysphagia, also aspiration pneumonia risk. 5. Anemia. 6. Lung cancer. 7. Atrial fibrillation. 8. G-tube. 9. Dysphagia. 10. Hypertension. 11. No known drug allergies. 12. Social history is negative. 13. Family history is noncontributory. 14. MAR is noted. 15. Case was discussed with RN. 16. Continue treatment per primary consultants. 17. The patient is also at risk for aspiration pneumonia in addition to community-acquired pneumonia. Subjective Constitutional: Reports: fever, fatigue, other - on vent, no pressors HEENT: Reports: congestion Respiratory: Reports: shortness of breath Cardiovascular: Reports: other - no pressors Gastrointestinal/Abdominal: Reports: other; Denies: diarrhea Genitourinary: Reports: other - + lópez Allergies: Coded Allergies: No Known Allergies (Unverified , 05/23/20) Objective Last 24 Hour Vital Signs Date Time Temp Pulse Resp B/P (MAP) Pulse Ox O2 Delivery O2 Flow Rate FiO2 05/29/20 15:00 117 30 111/61 (78) 94 05/29/20 14:00 111 34 126/67 (86) 94 05/29/20 13:30 110 31 99/69 (79) 90 05/29/20 13:00 107 22 125/58 (80) 96 05/29/20 12:34 22 108/55 Endotracheal Tube 100 05/29/20 12:00 100 05/29/20 12:00 Endotracheal Tube 05/29/20 12:00 98.5 100 21 93/63 (73) 92 05/29/20 11:53 108 05/29/20 11:34 27 96/65 Endotracheal Tube 100 05/29/20 11:18 100 22 100 05/29/20 11:00 99 24 93/64 (74) 92 05/29/20 10:34 25 89/57 Endotracheal Tube 100 05/29/20 10:30 96 24 97/58 (71) 92 05/29/20 10:00 94 21 99/54 (69) 95 05/29/20 09:34 31 90/54 Endotracheal Tube 100 05/29/20 09:30 90 31 90/54 (66) 88 05/29/20 09:15 27 90/52 Endotracheal Tube 100 05/29/20 09:00 99 31 88/51 (63) 91 05/29/20 08:30 154 32 113/76 (88) 96 05/29/20 08:28 143 116/84 05/29/20 08:15 21 119/76 Endotracheal Tube 100 05/29/20 08:00 97.8 141 38 117/48 (71) 94 05/29/20 08:00 100 05/29/20 08:00 Endotracheal Tube 05/29/20 07:45 139 05/29/20 07:17 145 28 100 05/29/20 07:15 23 93/53 Endotracheal Tube 100 05/29/20 07:00 143 24 116/84 (95) 93 05/29/20 06:45 110/60 05/29/20 06:15 28 96/53 Mechanical Ventilator 100 05/29/20 06:00 100.0 136 26 94/73 (80) 98 05/29/20 05:45 140 25 112/79 (90) 97 05/29/20 05:30 137 38 111/62 (78) 98 05/29/20 05:15 27 96/54 Mechanical Ventilator 100 05/29/20 05:00 138 32 110/58 (75) 98 05/29/20 04:15 27 107/53 Mechanical Ventilator 100 05/29/20 04:00 Endotracheal Tube 05/29/20 04:00 131 05/29/20 04:00 99.4 130 21 96/59 (71) 97 05/29/20 04:00 100 05/29/20 03:30 127 22 98/61 (73) 97 05/29/20 03:15 25 98/61 Mechanical Ventilator 100 05/29/20 03:07 135 25 100 05/29/20 03:00 126 33 111/53 (72) 98 05/29/20 02:30 129 25 99/51 (67) 98 05/29/20 02:15 24 99/51 Endotracheal Tube 100 05/29/20 02:00 129 34 111/65 (80) 95 05/29/20 01:30 133 26 119/87 (98) 93 05/29/20 01:15 129 26 108/59 (75) 94 05/29/20 01:15 28 119/87 Mechanical Ventilator 100.0 05/29/20 01:00 125 25 110/60 (77) 95 05/29/20 00:30 122 27 110/57 (74) 94 05/29/20 00:15 23 110/57 Mechanical Ventilator 100 05/29/20 00:09 113 28 98/56 100 05/29/20 00:00 100 05/29/20 00:00 99.0 115 23 98/56 (70) 96 05/29/20 00:00 Endotracheal Tube 05/29/20 00:00 117 05/28/20 23:33 108 30 90/60 98 05/28/20 23:30 114 44 90/60 (70) 95 05/28/20 23:24 117 28 100 05/28/20 23:15 28 110/81 Mechanical Ventilator 100 05/28/20 23:00 115 35 110/40 (63) 95 05/28/20 22:30 112 24 110/81 (91) 98 05/28/20 22:15 29 119/56 Mechanical Ventilator 100 05/28/20 22:00 114 27 119/56 (77) 96 05/28/20 21:30 109 27 111/65 (80) 95 05/28/20 21:15 28 97/54 Mechanical Ventilator 100 05/28/20 21:00 107 27 97/54 (68) 95 05/28/20 21:00 100 97/54 05/28/20 20:45 104 31 121/70 (87) 94 05/28/20 20:30 107 35 104/53 (70) 95 05/28/20 20:15 26 109/64 Mechanical Ventilator 100 05/28/20 20:15 101 29 103/62 (76) 98 05/28/20 20:00 Endotracheal Tube 05/28/20 20:00 99.0 101 29 109/64 (79) 92 05/28/20 20:00 100 05/28/20 20:00 100 05/28/20 19:45 106 40 116/62 (80) 94 05/28/20 19:30 101 24 94/49 (64) 05/28/20 19:15 24 130/60 Endotracheal Tube 100 05/28/20 19:01 93 23 100 05/28/20 19:00 100 24 112/63 (79) 91 05/28/20 18:30 96 27 128/52 (77) 84 05/28/20 18:15 26 128/52 Endotracheal Tube 82 05/28/20 18:00 94 24 118/54 (75) 94 05/28/20 18:00 94 24 118/54 (75) 94 05/28/20 17:30 96 24 109/57 (74) 93 05/28/20 17:15 25 109/57 Endotracheal Tube 100 05/28/20 17:15 89 25 106/65 (79) 93 05/28/20 17:00 90 20 106/68 (81) 93 05/28/20 16:45 86 24 108/51 (70) 95 05/28/20 16:30 84 23 112/60 (77) 93 05/28/20 16:15 97.7 80 25 122/106 (111) 94 05/28/20 16:15 22 122/106 Endotracheal Tube 100 05/28/20 16:00 Endotracheal Tube 05/28/20 16:00 81 05/28/20 16:00 100 05/28/20 16:00 18 96/56 Endotracheal Tube 100 05/28/20 16:00 77 21 114/69 (84) 96 05/28/20 16:00 77 22 123/59 (80) 92 Height (Feet): 5 Height (Inches): 10.00 Weight (Pounds): 168 General Appearance: other - on vent, no pressors HEENT: other - oral intubated Respiratory/Chest: crackles/rales, rhonchi - bilaterally Cardiovascular: normal rate, regular rhythm, no gallop/murmur Abdomen: normal bowel sounds, soft, non tender, no organomegaly Chest x-ray - 05/28/20 - FINDINGS: Lungs: The study is slightly limited due to patient rotation. There are bilateral pulmonary opacities, right greater than left which have worsened/increased compared to the previous study, consistent with pneumonia. There is dense opacity right lung base suggestive of effusion. Pleural space: No pneumothorax. Heart: Unremarkable. No cardiomegaly. Mediastinum: Unremarkable. Bones/joints: Unremarkable. Tubes, lines and devices: An endotracheal tube is in place with the tip passing 4.5 cm above the crissy. A right internal jugular central venous catheter tip overlies the SVC/right atrial region. A permanent pacemaker is unchanged in position. IMPRESSION: Interval worsening of significant pneumonia, right greater than left. Microbiology Date/Time Source Procedure Growth Status 05/28/20 16:32 Nasopharynx Coronavirus COVID-19 PCR (NATHAN) - Final Complete 05/27/20 22:20 Sputum Gram Stain - Final Resulted 05/27/20 22:20 Sputum Sputum Culture - Preliminary NORMAL UPPER RESPIRATORY BLAYNE AT 24 ... Resulted Laboratory Tests Test 05/28/20 16:32 05/29/20 04:00 05/29/20 08:40 Urine Legionella Antigen Pending White Blood Count 18.6 K/UL (4.8-10.8) H Red Blood Count 4.03 M/UL (4.70-6.10) L Hemoglobin 11.5 G/DL (14.2-18.0) L Hematocrit 37.7 % (42.0-52.0) L Mean Corpuscular Volume 94 FL (80-99) Mean Corpuscular Hemoglobin 28.6 PG (27.0-31.0) Mean Corpuscular Hemoglobin Concent 30.5 G/DL (32.0-36.0) L Red Cell Distribution Width 14.0 % (11.6-14.8) Platelet Count 355 K/UL (150-450) Mean Platelet Volume 6.9 FL (6.5-10.1) Neutrophils (%) (Auto) % (45.0-75.0) Lymphocytes (%) (Auto) % (20.0-45.0) Monocytes (%) (Auto) % (1.0-10.0) Eosinophils (%) (Auto) % (0.0-3.0) Basophils (%) (Auto) % (0.0-2.0) Differential Total Cells Counted 100 Neutrophils % (Manual) 75 % (45-75) Lymphocytes % (Manual) 12 % (20-45) L Monocytes % (Manual) 13 % (1-10) H Eosinophils % (Manual) 0 % (0-3) Basophils % (Manual) 0 % (0-2) Band Neutrophils 0 % (0-8) Platelet Estimate Adequate Platelet Morphology Normal Hypochromasia 1+ Sodium Level 135 MMOL/L (136-145) L Potassium Level 3.5 MMOL/L (3.5-5.1) Chloride Level 102 MMOL/L (98-107) Carbon Dioxide Level 27 MMOL/L (21-32) Anion Gap 7 mmol/L (5-15) Blood Urea Nitrogen 16 mg/dL (7-18) Creatinine 1.1 MG/DL (0.55-1.30) Estimat Glomerular Filtration Rate > 60 mL/min (>60) Glucose Level 165 MG/DL (74-106) H Calcium Level 8.0 MG/DL (8.5-10.1) L Total Bilirubin 0.5 MG/DL (0.2-1.0) Aspartate Amino Transf (AST/SGOT) 26 U/L (15-37) Alanine Aminotransferase (ALT/SGPT) 11 U/L (12-78) L Alkaline Phosphatase 74 U/L (46-116) Total Protein 6.3 G/DL (6.4-8.2) L Albumin 1.6 G/DL (3.4-5.0) L Globulin 4.7 g/dL Albumin/Globulin Ratio 0.3 (1.0-2.7) L Mycoplasma pneumoniae IgG Antibody Pending Mycoplasma pneumoniae IgM Ab Titer Pending Arterial Blood pH 7.344 (7.350-7.450) Arterial Blood Partial Pressure CO2 46.1 mmHg (35.0-45.0) H Arterial Blood Partial Pressure O2 41.6 mmHg (75.0-100.0) Arterial Blood HCO3 24.5 mmol/L (22.0-26.0) Arterial Blood Oxygen Saturation 76.9 % (95-100) *L Arterial Blood Base Excess -1.4 (-2-2) Alton Test Positive Current Medications Medications (Trade) Dose Ordered Sig/Joan Route PRN Reason Start Time Stop Time Status Last Admin Dose Admin Chlorhexidine Gluconate (Zohreh-Hex 2%) 1 applic DAILY@1999 TOPIC 05/23/20 20:00 08/21/20 19:59 05/28/20 19:51 Dexamethasone Sodium Phosphate (Decadron 10mg/ ml Inj) 6 mg DAILY IV 05/29/20 09:00 06/07/20 09:01 05/29/20 08:28 Dextrose (Dextrose 50%) 25 ml Q30M PRN IV Hypoglycemia 05/23/20 05:15 08/21/20 05:14 Dextrose (Dextrose 50%) 50 ml Q30M PRN IV Hypoglycemia 05/23/20 05:15 08/21/20 05:14 Doxycycline Hyclate 100 mg/ Dextrose 110 ml @ 110 mls/hr Q12HR IV 05/28/20 21:00 06/04/20 20:59 05/29/20 08:28 Enoxaparin Sodium (Lovenox) 80 mg EVERY 12 HOURS SUBQ 05/29/20 21:00 08/27/20 20:59 Lorazepam (Ativan 2mg/ml 1ml) 1 mg BID PRN IV For Anxiety 05/26/20 10:30 06/02/20 10:29 05/28/20 23:33 Meropenem 1 gm/ Sodium Chloride 100 ml @ 200 mls/hr Q8HR IVPB 05/28/20 22:00 06/02/20 21:59 05/29/20 13:07 Metoprolol Tartrate (Lopressor) 75 mg Q12HR GT 05/27/20 20:30 08/25/20 20:29 05/29/20 08:28 Norepinephrine Bitartrate 250 ml @ 0 mls/hr Q24H IV 05/28/20 06:45 05/31/20 06:32 05/28/20 06:55 Oxycodone HCl (Roxicodone) 5 mg Q4H PRN GT pain 4-10 05/23/20 22:00 05/30/20 21:59 05/28/20 01:46 Propofol 100 ml @ 0 mls/hr Q12H PRN IV Sedation 05/28/20 15:44 05/30/20 15:43 05/29/20 09:34 Vancomycin HCl (Vanco pharmacy to dose) 1 ea DAILY PRN MISC Per rx protocol 05/26/20 08:00 06/25/20 07:59 Vancomycin HCl 1 gm/Dextrose 275 ml @ 183.708 mls/hr Q12HR IVPB 05/28/20 09:00 06/02/20 08:59 11/25/20 09:33 Aury Varela MD May 29, 2020 15:21
--- NOTE | 2020-05-29 16:18 | Diagnostic Imaging Report ---
Indication: Shortness of breath Technique: One view of the chest Comparison: On 23/10/2019 Findings: There is improved aeration of the right lung with apparent increased volume. Interstitial and airspace disease is seen throughout the left lung, appearing similar in the upper lobes but worse in the lower lobe. There is some atelectasis at the right lung base. Perihilar infiltrates are demonstrated on the right. Stable satisfactory tube and line positions. Left chest pacemaker again noted. Impression: Improved aeration of the right lung. Worsening infiltrates in the left mid and lower lung. Other findings as noted
--- NOTE | 2020-05-29 18:25 | Surgery Progress Note ---
Surgery Progress Note Subjective Additional Comments wbc trending down discussed with medical team erik maire from surgical standpoint Objective Last 24 Hour Vital Signs Date Time Temp Pulse Resp B/P (MAP) Pulse Ox O2 Delivery O2 Flow Rate FiO2 05/29/20 17:00 134 28 108/63 (78) 94 05/29/20 16:30 127 27 120/65 (83) 92 05/29/20 16:21 132 05/29/20 16:00 100 05/29/20 16:00 Endotracheal Tube 05/29/20 16:00 98.3 130 28 96/68 (77) 94 05/29/20 15:30 121 33 126/73 (90) 93 05/29/20 15:07 119 27 100 05/29/20 15:00 117 30 111/61 (78) 94 05/29/20 14:30 117 30 122/58 (79) 93 05/29/20 14:00 111 34 126/67 (86) 94 05/29/20 13:30 110 31 99/69 (79) 90 05/29/20 13:00 107 22 125/58 (80) 96 05/29/20 12:34 22 108/55 Endotracheal Tube 100 05/29/20 12:00 100 05/29/20 12:00 Endotracheal Tube 05/29/20 12:00 98.5 100 21 93/63 (73) 92 05/29/20 11:53 108 05/29/20 11:34 27 96/65 Endotracheal Tube 100 05/29/20 11:18 100 22 100 05/29/20 11:00 99 24 93/64 (74) 92 05/29/20 10:34 25 89/57 Endotracheal Tube 100 05/29/20 10:30 96 24 97/58 (71) 92 05/29/20 10:00 94 21 99/54 (69) 95 05/29/20 09:34 31 90/54 Endotracheal Tube 100 05/29/20 09:30 90 31 90/54 (66) 88 05/29/20 09:15 27 90/52 Endotracheal Tube 100 05/29/20 09:00 99 31 88/51 (63) 91 05/29/20 08:30 154 32 113/76 (88) 96 05/29/20 08:28 143 116/84 05/29/20 08:15 21 119/76 Endotracheal Tube 100 05/29/20 08:00 97.8 141 38 117/48 (71) 94 05/29/20 08:00 100 05/29/20 08:00 Endotracheal Tube 05/29/20 07:45 139 05/29/20 07:17 145 28 100 05/29/20 07:15 23 93/53 Endotracheal Tube 100 05/29/20 07:00 143 24 116/84 (95) 93 05/29/20 06:45 110/60 05/29/20 06:15 28 96/53 Mechanical Ventilator 100 05/29/20 06:00 100.0 136 26 94/73 (80) 98 05/29/20 05:45 140 25 112/79 (90) 97 05/29/20 05:30 137 38 111/62 (78) 98 05/29/20 05:15 27 96/54 Mechanical Ventilator 100 05/29/20 05:00 138 32 110/58 (75) 98 05/29/20 04:15 27 107/53 Mechanical Ventilator 100 05/29/20 04:00 Endotracheal Tube 05/29/20 04:00 131 05/29/20 04:00 99.4 130 21 96/59 (71) 97 05/29/20 04:00 100 05/29/20 03:30 127 22 98/61 (73) 97 05/29/20 03:15 25 98/61 Mechanical Ventilator 100 05/29/20 03:07 135 25 100 05/29/20 03:00 126 33 111/53 (72) 98 05/29/20 02:30 129 25 99/51 (67) 98 05/29/20 02:15 24 99/51 Endotracheal Tube 100 05/29/20 02:00 129 34 111/65 (80) 95 05/29/20 01:30 133 26 119/87 (98) 93 05/29/20 01:15 129 26 108/59 (75) 94 05/29/20 01:15 28 119/87 Mechanical Ventilator 100.0 05/29/20 01:00 125 25 110/60 (77) 95 05/29/20 00:30 122 27 110/57 (74) 94 05/29/20 00:15 23 110/57 Mechanical Ventilator 100 05/29/20 00:09 113 28 98/56 100 05/29/20 00:00 100 05/29/20 00:00 99.0 115 23 98/56 (70) 96 05/29/20 00:00 Endotracheal Tube 05/29/20 00:00 117 05/28/20 23:33 108 30 90/60 98 05/28/20 23:30 114 44 90/60 (70) 95 05/28/20 23:24 117 28 100 05/28/20 23:15 28 110/81 Mechanical Ventilator 100 05/28/20 23:00 115 35 110/40 (63) 95 05/28/20 22:30 112 24 110/81 (91) 98 05/28/20 22:15 29 119/56 Mechanical Ventilator 100 05/28/20 22:00 114 27 119/56 (77) 96 05/28/20 21:30 109 27 111/65 (80) 95 05/28/20 21:15 28 97/54 Mechanical Ventilator 100 05/28/20 21:00 107 27 97/54 (68) 95 05/28/20 21:00 100 97/54 05/28/20 20:45 104 31 121/70 (87) 94 05/28/20 20:30 107 35 104/53 (70) 95 05/28/20 20:15 26 109/64 Mechanical Ventilator 100 05/28/20 20:15 101 29 103/62 (76) 98 05/28/20 20:00 Endotracheal Tube 05/28/20 20:00 99.0 101 29 109/64 (79) 92 05/28/20 20:00 100 05/28/20 20:00 100 05/28/20 19:45 106 40 116/62 (80) 94 05/28/20 19:30 101 24 94/49 (64) 05/28/20 19:15 24 130/60 Endotracheal Tube 100 05/28/20 19:01 93 23 100 05/28/20 19:00 100 24 112/63 (79) 91 05/28/20 18:30 96 27 128/52 (77) 84 I&O Intake and Output 05/28/20 05/29/20 19:00 07:00 Intake Total 477.214 ml 942.280 ml Output Total 440 ml 560 ml Balance 37.214 ml 382.280 ml Intake Free Water 30 ml IV Total 447.214 ml 732.280 ml Tube Feeding 30 ml 180 ml Output Urine Total 440 ml 560 ml Cardiovascular: RSR Respiratory: decreased breath sounds Abdomen: non-tender, present bowel sounds Extremities: edema, no cyanosis Laboratory Tests Test 05/29/20 04:00 05/29/20 08:40 White Blood Count 18.6 K/UL (4.8-10.8) H Red Blood Count 4.03 M/UL (4.70-6.10) L Hemoglobin 11.5 G/DL (14.2-18.0) L Hematocrit 37.7 % (42.0-52.0) L Mean Corpuscular Volume 94 FL (80-99) Mean Corpuscular Hemoglobin 28.6 PG (27.0-31.0) Mean Corpuscular Hemoglobin Concent 30.5 G/DL (32.0-36.0) L Red Cell Distribution Width 14.0 % (11.6-14.8) Platelet Count 355 K/UL (150-450) Mean Platelet Volume 6.9 FL (6.5-10.1) Neutrophils (%) (Auto) % (45.0-75.0) Lymphocytes (%) (Auto) % (20.0-45.0) Monocytes (%) (Auto) % (1.0-10.0) Eosinophils (%) (Auto) % (0.0-3.0) Basophils (%) (Auto) % (0.0-2.0) Differential Total Cells Counted 100 Neutrophils % (Manual) 75 % (45-75) Lymphocytes % (Manual) 12 % (20-45) L Monocytes % (Manual) 13 % (1-10) H Eosinophils % (Manual) 0 % (0-3) Basophils % (Manual) 0 % (0-2) Band Neutrophils 0 % (0-8) Platelet Estimate Adequate Platelet Morphology Normal Hypochromasia 1+ Sodium Level 135 MMOL/L (136-145) L Potassium Level 3.5 MMOL/L (3.5-5.1) Chloride Level 102 MMOL/L (98-107) Carbon Dioxide Level 27 MMOL/L (21-32) Anion Gap 7 mmol/L (5-15) Blood Urea Nitrogen 16 mg/dL (7-18) Creatinine 1.1 MG/DL (0.55-1.30) Estimat Glomerular Filtration Rate > 60 mL/min (>60) Glucose Level 165 MG/DL (74-106) H Calcium Level 8.0 MG/DL (8.5-10.1) L Total Bilirubin 0.5 MG/DL (0.2-1.0) Aspartate Amino Transf (AST/SGOT) 26 U/L (15-37) Alanine Aminotransferase (ALT/SGPT) 11 U/L (12-78) L Alkaline Phosphatase 74 U/L (46-116) Total Protein 6.3 G/DL (6.4-8.2) L Albumin 1.6 G/DL (3.4-5.0) L Globulin 4.7 g/dL Albumin/Globulin Ratio 0.3 (1.0-2.7) L Mycoplasma pneumoniae IgG Antibody Pending Mycoplasma pneumoniae IgM Ab Titer Pending Arterial Blood pH 7.344 (7.350-7.450) Arterial Blood Partial Pressure CO2 46.1 mmHg (35.0-45.0) H Arterial Blood Partial Pressure O2 41.6 mmHg (75.0-100.0) Arterial Blood HCO3 24.5 mmol/L (22.0-26.0) Arterial Blood Oxygen Saturation 76.9 % (95-100) *L Arterial Blood Base Excess -1.4 (-2-2) Alton Test Positive Plan Problems: (1) Shortness of breath Assessment & Plan: worsening intubated now on vent wean vent as tolerated diuresis (2) Lung cancer (3) A-fib (4) CHF exacerbation (5) G tube feedings (6) Cellulitis of scrotum Assessment & Plan: Patient identified admission to have scrotal cellulitis with fluid-filled large scrotum in the posterior aspect of the perineum there is a opening proximally 1 cm raised 1 cm with cellulitis and induration around it no fluctuance no abscess. Wound washed. Swab Betadine. Dressings applied. IV antibiotics. Will monitor with physical examination to ensure not worsening. May form phlegmon into abscess requiring I&D but currently no fluid collection requiring I&D. Will monitor to ensure healing. Thank you for letting present patient's care will follow with recommendations abd exam improved scrotum stable requiring bipap cxr noted leukocytosis cont abx fluids respiratory support DAILY ESTIMATED NEEDS: Needs based on Pulmonary, Cancer, bedbound 72.6kg 23-28 kcals/kg [id number] total kcals 1-1.5 g protein/kg 73-109 g total protein Fluid per MD, on lasix NUTRITION DIAGNOSIS: Swallowing difficulty r/t dysphagia as evidenced by pt is PEG dep. CURRENT TF: (NPO) ENTERAL NUTRITION RECOMMENDATIONS: As medically able, rec Glucerna 1.5 goal of 50ml/hr x24 hrs to provide 1200ml, 1800 kcal, 99g pro, 911ml free H2O - As medically able, rec carb control (elev BG 127-165), low free fluid formula(elev BNP, on lasix, edematous). - Start Glucerna 1.5 @20ml/hr for 6 hrs, advance as tolerated 10ml/hr q4-6 hrs to goal. - Flush per MD/ pt is on lasix - HOB over 30 degrees ADDITIONAL RECOMMENDATIONS: 1) TF recs above when medically appropriate 2) Rec bed side BG checks; am labs w/ elev BG (127-165). 3) Monitor lytes, need or renal formula (elev phos, elev Mg) 4) W/ lasix, add B-complex 1 daily 5) Maintain calibrated bed scale wts (7) Hypoxia Roman Pickens May 29, 2020 18:25
[2020-05-29] MEDS: Dyna-Hex 2% Top Sol 2oz TOPIC SCH (20:11)
--- NOTE | 2020-05-29 21:03 | Cardiology Progress Note ---
Assessment/Plan Assessment/Plan 1. Tachycardia. 2. Atrial fibrillation, rapid ventricular response with history of permanent atrial fibrillation. 3. History of lung cancer on the right side. 4. Hypoxemia. 5. Reported history of coronary artery disease. 6. History of pacemaker implantation. 7. History of glaucoma. 8. History of gastroesophageal reflux disease. 9. Decubitus ulcers. 10. History of hypertension. 11. History of benign prostatic hypertrophy 12. acute repiratory failure 13. Hypotension 14. bradycardia echo normal lv function on he vent still off pressor eitermittnetly heart rate up agian will given metoprolol q6h prn tachy tele persoanlly reviewed seem to be inafib vent support pressor support as needed cxr persoally reviweed improved right lugn aeration now on anticoag with lovenox Subjective Subjective intubated on a vent now not verbally communicative Objective Last 24 Hour Vital Signs Date Time Temp Pulse Resp B/P (MAP) Pulse Ox O2 Delivery O2 Flow Rate FiO2 05/29/20 19:00 134 30 94/62 (73) 92 05/29/20 18:34 25 99/75 Endotracheal Tube 100 05/29/20 18:32 144 30 100 05/29/20 18:30 134 25 99/75 (83) 95 05/29/20 18:00 135 27 107/67 (80) 88 05/29/20 17:34 26 107/67 Endotracheal Tube 100 05/29/20 17:00 134 28 108/63 (78) 94 05/29/20 16:34 30 120/65 Endotracheal Tube 100 05/29/20 16:30 127 27 120/65 (83) 92 05/29/20 16:21 132 05/29/20 16:00 100 05/29/20 16:00 Endotracheal Tube 05/29/20 16:00 98.3 130 28 96/68 (77) 94 05/29/20 15:34 29 115/55 Endotracheal Tube 100 05/29/20 15:30 121 33 126/73 (90) 93 05/29/20 15:07 119 27 100 05/29/20 15:00 117 30 111/61 (78) 94 05/29/20 14:34 30 122/58 Endotracheal Tube 100 05/29/20 14:30 117 30 122/58 (79) 93 05/29/20 14:00 111 34 126/67 (86) 94 05/29/20 13:34 31 99/69 Endotracheal Tube 100 05/29/20 13:30 110 31 99/69 (79) 90 05/29/20 13:00 107 22 125/58 (80) 96 05/29/20 12:34 22 108/55 Endotracheal Tube 100 05/29/20 12:00 100 05/29/20 12:00 Endotracheal Tube 05/29/20 12:00 98.5 100 21 93/63 (73) 92 05/29/20 11:53 108 05/29/20 11:34 27 96/65 Endotracheal Tube 100 05/29/20 11:18 100 22 100 05/29/20 11:00 99 24 93/64 (74) 92 05/29/20 10:34 25 89/57 Endotracheal Tube 100 05/29/20 10:30 96 24 97/58 (71) 92 05/29/20 10:00 94 21 99/54 (69) 95 05/29/20 09:34 31 90/54 Endotracheal Tube 100 05/29/20 09:30 90 31 90/54 (66) 88 05/29/20 09:15 27 90/52 Endotracheal Tube 100 05/29/20 09:00 99 31 88/51 (63) 91 05/29/20 08:30 154 32 113/76 (88) 96 05/29/20 08:28 143 116/84 05/29/20 08:15 21 119/76 Endotracheal Tube 100 05/29/20 08:00 97.8 141 38 117/48 (71) 94 05/29/20 08:00 100 05/29/20 08:00 Endotracheal Tube 05/29/20 07:45 139 05/29/20 07:17 145 28 100 05/29/20 07:15 23 93/53 Endotracheal Tube 100 05/29/20 07:00 143 24 116/84 (95) 93 05/29/20 06:45 110/60 05/29/20 06:15 28 96/53 Mechanical Ventilator 100 05/29/20 06:00 100.0 136 26 94/73 (80) 98 05/29/20 05:45 140 25 112/79 (90) 97 05/29/20 05:30 137 38 111/62 (78) 98 05/29/20 05:15 27 96/54 Mechanical Ventilator 100 05/29/20 05:00 138 32 110/58 (75) 98 05/29/20 04:15 27 107/53 Mechanical Ventilator 100 05/29/20 04:00 Endotracheal Tube 05/29/20 04:00 131 05/29/20 04:00 99.4 130 21 96/59 (71) 97 05/29/20 04:00 100 05/29/20 03:30 127 22 98/61 (73) 97 05/29/20 03:15 25 98/61 Mechanical Ventilator 100 05/29/20 03:07 135 25 100 05/29/20 03:00 126 33 111/53 (72) 98 05/29/20 02:30 129 25 99/51 (67) 98 05/29/20 02:15 24 99/51 Endotracheal Tube 100 05/29/20 02:00 129 34 111/65 (80) 95 05/29/20 01:30 133 26 119/87 (98) 93 05/29/20 01:15 129 26 108/59 (75) 94 05/29/20 01:15 28 119/87 Mechanical Ventilator 100.0 05/29/20 01:00 125 25 110/60 (77) 95 05/29/20 00:30 122 27 110/57 (74) 94 05/29/20 00:15 23 110/57 Mechanical Ventilator 100 05/29/20 00:09 113 28 98/56 100 05/29/20 00:00 100 05/29/20 00:00 99.0 115 23 98/56 (70) 96 05/29/20 00:00 Endotracheal Tube 05/29/20 00:00 117 05/28/20 23:33 108 30 90/60 98 05/28/20 23:30 114 44 90/60 (70) 95 05/28/20 23:24 117 28 100 05/28/20 23:15 28 110/81 Mechanical Ventilator 100 05/28/20 23:00 115 35 110/40 (63) 95 05/28/20 22:30 112 24 110/81 (91) 98 05/28/20 22:15 29 119/56 Mechanical Ventilator 100 05/28/20 22:00 114 27 119/56 (77) 96 05/28/20 21:30 109 27 111/65 (80) 95 05/28/20 21:15 28 97/54 Mechanical Ventilator 100 05/28/20 21:00 107 27 97/54 (68) 95 05/28/20 21:00 100 97/54 General Appearance: no apparent distress, alert, agitated, on vent Cardiovascular: tachycardia, irregularly irregular Respiratory/Chest: rhonchi - bilaterally Abdomen: normal bowel sounds, non tender, soft Extremities: no swelling Intake and Output 05/28/20 05/29/20 19:00 07:00 Intake Total 477.214 ml 942.280 ml Output Total 440 ml 560 ml Balance 37.214 ml 382.280 ml Intake Free Water 30 ml IV Total 447.214 ml 732.280 ml Tube Feeding 30 ml 180 ml Output Urine Total 440 ml 560 ml Laboratory Tests Test 05/29/20 04:00 05/29/20 08:40 05/29/20 20:30 White Blood Count 18.6 K/UL (4.8-10.8) H Red Blood Count 4.03 M/UL (4.70-6.10) L Hemoglobin 11.5 G/DL (14.2-18.0) L Hematocrit 37.7 % (42.0-52.0) L Mean Corpuscular Volume 94 FL (80-99) Mean Corpuscular Hemoglobin 28.6 PG (27.0-31.0) Mean Corpuscular Hemoglobin Concent 30.5 G/DL (32.0-36.0) L Red Cell Distribution Width 14.0 % (11.6-14.8) Platelet Count 355 K/UL (150-450) Mean Platelet Volume 6.9 FL (6.5-10.1) Neutrophils (%) (Auto) % (45.0-75.0) Lymphocytes (%) (Auto) % (20.0-45.0) Monocytes (%) (Auto) % (1.0-10.0) Eosinophils (%) (Auto) % (0.0-3.0) Basophils (%) (Auto) % (0.0-2.0) Differential Total Cells Counted 100 Neutrophils % (Manual) 75 % (45-75) Lymphocytes % (Manual) 12 % (20-45) L Monocytes % (Manual) 13 % (1-10) H Eosinophils % (Manual) 0 % (0-3) Basophils % (Manual) 0 % (0-2) Band Neutrophils 0 % (0-8) Platelet Estimate Adequate Platelet Morphology Normal Hypochromasia 1+ Sodium Level 135 MMOL/L (136-145) L Potassium Level 3.5 MMOL/L (3.5-5.1) Chloride Level 102 MMOL/L (98-107) Carbon Dioxide Level 27 MMOL/L (21-32) Anion Gap 7 mmol/L (5-15) Blood Urea Nitrogen 16 mg/dL (7-18) Creatinine 1.1 MG/DL (0.55-1.30) Estimat Glomerular Filtration Rate > 60 mL/min (>60) Glucose Level 165 MG/DL (74-106) H Calcium Level 8.0 MG/DL (8.5-10.1) L Total Bilirubin 0.5 MG/DL (0.2-1.0) Aspartate Amino Transf (AST/SGOT) 26 U/L (15-37) Alanine Aminotransferase (ALT/SGPT) 11 U/L (12-78) L Alkaline Phosphatase 74 U/L (46-116) Total Protein 6.3 G/DL (6.4-8.2) L Albumin 1.6 G/DL (3.4-5.0) L Globulin 4.7 g/dL Albumin/Globulin Ratio 0.3 (1.0-2.7) L Mycoplasma pneumoniae IgG Antibody Pending Mycoplasma pneumoniae IgM Ab Titer Pending Arterial Blood pH 7.344 (7.350-7.450) Arterial Blood Partial Pressure CO2 46.1 mmHg (35.0-45.0) H Arterial Blood Partial Pressure O2 41.6 mmHg (75.0-100.0) Arterial Blood HCO3 24.5 mmol/L (22.0-26.0) Arterial Blood Oxygen Saturation 76.9 % (95-100) *L Arterial Blood Base Excess -1.4 (-2-2) Alton Test Positive Vancomycin Level Trough Pending Microbiology Date/Time Source Procedure Growth Status 05/28/20 16:32 Nasopharynx Coronavirus COVID-19 PCR (NATHAN) - Final Complete 05/27/20 22:20 Sputum Gram Stain - Final Resulted 05/27/20 22:20 Sputum Sputum Culture - Preliminary NORMAL UPPER RESPIRATORY BLAYNE AT 24 ... Resulted Objective duration of critial care cardiology [provided 45 min Carrillo Zamudio MD May 29, 2020 21:02
[2020-05-29] MEDS ORDERED: Metoprolol Tartrate 5mg/5ml Inj IVP PRN (21:14)
[2020-05-29] MEDS: Enoxaparin 80mg Inj SUBQ SCH (21:27)
--- NOTE | 2020-05-29 22:33 | General Progress Note ---
Subjective Date patient seen: May 29, 2020 ROS Limited/Unobtainable: Yes - intubated, sedated Allergies: Coded Allergies: No Known Allergies (Unverified , 05/23/20) Subjective Patient remains intubated this morning. Continuing tube feeds. Vital signs stable, but remains in refractory hypoxemia. Objective Last 24 Hour Vital Signs Date Time Temp Pulse Resp B/P (MAP) Pulse Ox O2 Delivery O2 Flow Rate FiO2 05/29/20 21:27 134 117/72 05/29/20 19:00 134 30 94/62 (73) 92 05/29/20 18:34 25 99/75 Endotracheal Tube 100 05/29/20 18:32 144 30 100 05/29/20 18:30 134 25 99/75 (83) 95 05/29/20 18:00 135 27 107/67 (80) 88 05/29/20 17:34 26 107/67 Endotracheal Tube 100 05/29/20 17:00 134 28 108/63 (78) 94 05/29/20 16:34 30 120/65 Endotracheal Tube 100 05/29/20 16:30 127 27 120/65 (83) 92 05/29/20 16:21 132 05/29/20 16:00 100 05/29/20 16:00 Endotracheal Tube 05/29/20 16:00 98.3 130 28 96/68 (77) 94 05/29/20 15:34 29 115/55 Endotracheal Tube 100 05/29/20 15:30 121 33 126/73 (90) 93 05/29/20 15:07 119 27 100 05/29/20 15:00 117 30 111/61 (78) 94 05/29/20 14:34 30 122/58 Endotracheal Tube 100 05/29/20 14:30 117 30 122/58 (79) 93 05/29/20 14:00 111 34 126/67 (86) 94 05/29/20 13:34 31 99/69 Endotracheal Tube 100 05/29/20 13:30 110 31 99/69 (79) 90 05/29/20 13:00 107 22 125/58 (80) 96 05/29/20 12:34 22 108/55 Endotracheal Tube 100 05/29/20 12:00 100 05/29/20 12:00 Endotracheal Tube 05/29/20 12:00 98.5 100 21 93/63 (73) 92 05/29/20 11:53 108 05/29/20 11:34 27 96/65 Endotracheal Tube 100 05/29/20 11:18 100 22 100 05/29/20 11:00 99 24 93/64 (74) 92 05/29/20 10:34 25 89/57 Endotracheal Tube 100 05/29/20 10:30 96 24 97/58 (71) 92 05/29/20 10:00 94 21 99/54 (69) 95 05/29/20 09:34 31 90/54 Endotracheal Tube 100 05/29/20 09:30 90 31 90/54 (66) 88 05/29/20 09:15 27 90/52 Endotracheal Tube 100 05/29/20 09:00 99 31 88/51 (63) 91 05/29/20 08:30 154 32 113/76 (88) 96 05/29/20 08:28 143 116/84 05/29/20 08:15 21 119/76 Endotracheal Tube 100 05/29/20 08:00 97.8 141 38 117/48 (71) 94 05/29/20 08:00 100 05/29/20 08:00 Endotracheal Tube 05/29/20 07:45 139 05/29/20 07:17 145 28 100 05/29/20 07:15 23 93/53 Endotracheal Tube 100 05/29/20 07:00 143 24 116/84 (95) 93 05/29/20 06:45 110/60 05/29/20 06:15 28 96/53 Mechanical Ventilator 100 05/29/20 06:00 100.0 136 26 94/73 (80) 98 05/29/20 05:45 140 25 112/79 (90) 97 05/29/20 05:30 137 38 111/62 (78) 98 05/29/20 05:15 27 96/54 Mechanical Ventilator 100 05/29/20 05:00 138 32 110/58 (75) 98 05/29/20 04:15 27 107/53 Mechanical Ventilator 100 05/29/20 04:00 Endotracheal Tube 05/29/20 04:00 131 05/29/20 04:00 99.4 130 21 96/59 (71) 97 05/29/20 04:00 100 05/29/20 03:30 127 22 98/61 (73) 97 05/29/20 03:15 25 98/61 Mechanical Ventilator 100 05/29/20 03:07 135 25 100 05/29/20 03:00 126 33 111/53 (72) 98 05/29/20 02:30 129 25 99/51 (67) 98 05/29/20 02:15 24 99/51 Endotracheal Tube 100 05/29/20 02:00 129 34 111/65 (80) 95 05/29/20 01:30 133 26 119/87 (98) 93 05/29/20 01:15 129 26 108/59 (75) 94 05/29/20 01:15 28 119/87 Mechanical Ventilator 100.0 05/29/20 01:00 125 25 110/60 (77) 95 05/29/20 00:30 122 27 110/57 (74) 94 05/29/20 00:15 23 110/57 Mechanical Ventilator 100 05/29/20 00:09 113 28 98/56 100 05/29/20 00:00 100 05/29/20 00:00 99.0 115 23 98/56 (70) 96 05/29/20 00:00 Endotracheal Tube 05/29/20 00:00 117 05/28/20 23:33 108 30 90/60 98 05/28/20 23:30 114 44 90/60 (70) 95 05/28/20 23:24 117 28 100 05/28/20 23:15 28 110/81 Mechanical Ventilator 100 05/28/20 23:00 115 35 110/40 (63) 95 Intake and Output 05/28/20 05/29/20 19:00 07:00 Intake Total 477.214 ml 942.280 ml Output Total 440 ml 560 ml Balance 37.214 ml 382.280 ml Intake Free Water 30 ml IV Total 447.214 ml 732.280 ml Tube Feeding 30 ml 180 ml Output Urine Total 440 ml 560 ml Laboratory Tests 05/29/20 04:00: White Blood Count 18.6H, Red Blood Count 4.03L, Hemoglobin 11.5L, Hematocrit 37.7L, Mean Corpuscular Volume 94, Mean Corpuscular Hemoglobin 28.6, Mean Corpuscular Hemoglobin Concent 30.5L, Red Cell Distribution Width 14.0, Platelet Count 355, Mean Platelet Volume 6.9, Neutrophils (%) (Auto) , Lymphocytes (%) (Auto) , Monocytes (%) (Auto) , Eosinophils (%) (Auto) , Basophils (%) (Auto) , Differential Total Cells Counted 100, Neutrophils % (Manual) 75, Lymphocytes % (Manual) 12L, Monocytes % (Manual) 13H, Eosinophils % (Manual) 0, Basophils % (Manual) 0, Band Neutrophils 0, Platelet Estimate Adequate, Platelet Morphology Normal, Hypochromasia 1+, Sodium Level 135L, Potassium Level 3.5, Chloride Level 102, Carbon Dioxide Level 27, Anion Gap 7, Blood Urea Nitrogen 16, Creatinine 1.1, Estimat Glomerular Filtration Rate > 60, Glucose Level 165H, Calcium Level 8.0L, Total Bilirubin 0.5, Aspartate Amino Transf (AST/SGOT) 26, Alanine Aminotransferase (ALT/SGPT) 11L, Alkaline Phosphatase 74, Total Protein 6.3L, Albumin 1.6L, Globulin 4.7, Albumin/Globulin Ratio 0.3L, Mycoplasma pneumoniae IgG Antibody [Pending], Mycoplasma pneumoniae IgM Ab Titer [Pending] 05/29/20 08:40: Arterial Blood pH 7.344L, Arterial Blood Partial Pressure CO2 46.1H, Arterial Blood Partial Pressure O2 41.6*L, Arterial Blood HCO3 24.5, Arterial Blood Oxygen Saturation 76.9*L, Arterial Blood Base Excess -1.4, Alton Test Positive 05/29/20 20:30: Vancomycin Level Trough 30.4H Height (Feet): 5 Height (Inches): 10.00 Weight (Pounds): 168 Objective General Appearance: intubated, sedated EENT: intubated, tube secured in place Neck: normal alignment, supple Cardiovascular: regularly irregular, no JVD, tachycardia Respiratory/Chest: ventilator sounds Abdomen: non tender, soft, other - G-tube Genitourinary/Rectal: other - [place] Extremities: normal range of motion Edema: no edema noted Arm (L), no edema noted Arm (R), no edema noted Leg (L), no edema noted Leg (R), no edema noted Pedal (L), no edema noted Pedal (R), no edema noted Generalized Neurologic: unable to assess Skin: normal pigmentation, warm/dry Assessment/Plan Status: deteriorating Assessment/Plan: A: #Acute hypoxic respiratory failure status post BiPAP - stable, remains on 100% FiO2 #Acute encephalopathy likely secondary to hypoxia #Atrial fibrillation with rapid ventricular response on blood thinner 2/2 CAP versus PE #Acute on ?chronic decompensated heart failure 2/2 tachyarrhythmia induced cardiomyopathy versus PE #Community-acquired pneumonia #History of lung cancer #Essential hypertension #G-tube dependent P: - Still intubated on ventilator concern for PE, so anticoagulation started Systolic blood pressure stable, no indication for pressor support at this time Keep MAP greater than 65 Started on the amiodarone per cardiology, still significantly tachycardic Preliminary echo report showing normal EF, RSVP 25, and undetermined diastolic Chest x-ray today shows moderate pulmonary congestion, cardiomegaly Continue Vanco, cefepime, Flagyl for possible right lower lobe pneumonia Follow-up repeat blood cultures, urinalysis given increased leukocytosis and inflammatory markers. No diarrhea Follow-up CTA to rule out PE: Etiology of respiratory failure and A. fib unsure if true CHF exacerbation need to rule out intraparenchymal diseases and possible PE Continue Lasix 40 mg IV twice daily Continue metoprolol 25 mg twice daily continue home Eliquis 5 mg twice daily Start tube feeds Nutritional consult Consult Dr. Akers, pulmonology, recs appreciated Consult Dr. Zamudio, cardiology, recs appreciated CM CODE STATUS: Full GI: Home omeprazole Diet: G-tube feeds DVT prophylaxis: Lovenox Dispo: Pending stabilization of respiratory failure Time spent on this encounter was 45 minutes which included 35 minutes of counseling and care coordination and critical care time. Review of labs, chest imaging, need for pressor support, mechanical ventilation support reviewed by me and along with discussion with pulmonology and cardiology. I discussed with the nurse at bedside. Time of note may not reflect time patient was seen. Alli Levy M.D. May 29, 2020 22:33
[2020-05-30] VITALS (21 sets, daily range): BP systolic 59–141; BP diastolic 36–78
[2020-05-30] MEDS: propofoL 1,000mg/100ml 100 ML IV PRN (01:29)
[2020-05-30 05:00] LABS: HEMOGLOBIN 11.8 G/DL (14.2-18.0); MEAN CORPUSCULAR VOLUME 96 FL (80-99); PLATELET COUNT 316 K/UL (150-450); RED BLOOD COUNT 4.08 M/UL (4.70-6.10); RED CELL DISTRIBUTION WIDTH 14.4 % (11.6-14.8)
[2020-05-30 05:22] LABS: WHITE BLOOD COUNT 23.5 K/UL (4.8-10.8)
[2020-05-30] MEDS: Norepinephrine 4mg/NS Premix 250 ML IV SCH ×2 (06:45→12:32)
[2020-05-30 07:34] LABS: ALBUMIN 1.7 G/DL (3.4-5.0); ALBUMIN/GLOBULIN RATIO 0.3 (1.0-2.7); ALKALINE PHOSPHATASE 91 U/L (46-116); ANION GAP 7 mmol/L (5-15); ASPARTATE AMINO TRANSFERASE 26 U/L (15-37); BILIRUBIN,TOTAL 0.4 MG/DL (0.2-1.0); BLOOD UREA NITROGEN 27 mg/dL (7-18); CALCIUM 8.5 MG/DL (8.5-10.1); CARBON DIOXIDE 27 MMOL/L (21-32); CHLORIDE 102 MMOL/L (98-107); CREATININE 1.3 MG/DL (0.55-1.30); POTASSIUM 4.2 MMOL/L (3.5-5.1); SODIUM 136 MMOL/L (136-145)
[2020-05-30 07:54] LABS: ALANINE AMINOTRANSFERASE 16 U/L (12-78)
--- NOTE | 2020-05-30 08:30 | Pulmonology Progress Note ---
Subjective ROS Limited/Unobtainable: Yes Interval Events: Remains intubated Constitutional: Reports: fever, fatigue, other - on vent, no pressors HEENT: Repors: no symptoms Respiratory: Reports: no symptoms Cardiovascular: Reports: no symptoms Gastrointestinal/Abdominal: Reports: other; Denies: diarrhea Genitourinary: Reports: no symptoms Neurologic: Reports: no symptoms Psychiatric: Reports: other - NA Skin: Denies: rash Musculoskeletal: Reports: other - NA Allergies: Coded Allergies: No Known Allergies (Unverified , 05/23/20) Objective Last 24 Hour Vital Signs Date Time Temp Pulse Resp B/P (MAP) Pulse Ox O2 Delivery O2 Flow Rate FiO2 05/30/20 08:00 30 98/57 Mechanical Ventilator 100 05/30/20 07:06 95 18 100 05/30/20 07:00 24 105/60 Mechanical Ventilator 100 05/30/20 06:45 100/60 05/30/20 06:00 25 103/59 Mechanical Ventilator 100 05/30/20 06:00 99.0 97 23 117/60 (79) 97 05/30/20 05:00 26 117/60 Mechanical Ventilator 100 05/30/20 05:00 102 22 112/67 (82) 97 05/30/20 04:00 Endotracheal Tube 05/30/20 04:00 100.3 104 27 122/63 (82) 95 05/30/20 04:00 103 05/30/20 04:00 22 128/66 Mechanical Ventilator 100 05/30/20 04:00 100 05/30/20 03:00 111 28 141/71 (94) 89 05/30/20 03:00 27 120/65 Mechanical Ventilator 100 05/30/20 02:33 110 23 100 05/30/20 02:00 27 109/62 Mechanical Ventilator 100 05/30/20 02:00 116 27 112/60 (77) 96 05/30/20 01:29 26 105/60 Mechanical Ventilator 100 05/30/20 01:00 112 31 136/78 (97) 05/30/20 01:00 30 136/78 Mechanical Ventilator 100 05/30/20 00:00 100 05/30/20 00:00 Endotracheal Tube 05/30/20 00:00 98.4 118 39 124/67 (86) 95 05/30/20 00:00 120 11/26/20 00:00 26 116/68 Mechanical Ventilator 100 05/29/20 23:00 118 34 130/54 (79) 94 05/29/20 23:00 24 130/54 Mechanical Ventilator 100 05/29/20 22:40 133 22 100 05/29/20 22:00 31 114/61 Mechanical Ventilator 100 05/29/20 22:00 106 28 114/61 (78) 93 20 21:27 134 117/72 05/29/20 21:00 29 123/55 Mechanical Ventilator 100 05/29/20 21:00 134 26 123/55 (77) 93 05/29/20 20:45 131 28 102/66 (78) 96 05/29/20 20:30 132 28 104/62 (76) 96 05/29/20 20:00 136 05/29/20 20:00 134 30 94/62 (73) 92 05/29/20 20:00 27 105/70 Mechanical Ventilator 100 05/29/20 20:00 98.6 130 26 105/70 (82) 83 05/29/20 20:00 Endotracheal Tube 05/29/20 20:00 100 05/29/20 19:00 134 30 94/62 (73) 92 05/29/20 18:34 25 99/75 Endotracheal Tube 100 05/29/20 18:32 144 30 100 05/29/20 18:30 134 25 99/75 (83) 95 05/29/20 18:00 135 27 107/67 (80) 88 05/29/20 17:34 26 107/67 Endotracheal Tube 100 05/29/20 17:00 134 28 108/63 (78) 94 05/29/20 16:34 30 120/65 Endotracheal Tube 100 05/29/20 16:30 127 27 120/65 (83) 92 05/29/20 16:21 132 05/29/20 16:00 100 05/29/20 16:00 Endotracheal Tube 05/29/20 16:00 98.3 130 28 96/68 (77) 94 05/29/20 15:34 29 115/55 Endotracheal Tube 100 05/29/20 15:30 121 33 126/73 (90) 93 05/29/20 15:07 119 27 100 05/29/20 15:00 117 30 111/61 (78) 94 05/29/20 14:34 30 122/58 Endotracheal Tube 100 11/25/20 14:30 117 30 122/58 (79) 93 05/29/20 14:00 111 34 126/67 (86) 94 05/29/20 13:34 31 99/69 Endotracheal Tube 100 05/29/20 13:30 110 31 99/69 (79) 90 05/29/20 13:00 107 22 125/58 (80) 96 05/29/20 12:34 22 108/55 Endotracheal Tube 100 05/29/20 12:00 100 05/29/20 12:00 Endotracheal Tube 05/29/20 12:00 98.5 100 21 93/63 (73) 92 05/29/20 11:53 108 05/29/20 11:34 27 96/65 Endotracheal Tube 100 05/29/20 11:18 100 22 100 05/29/20 11:00 99 24 93/64 (74) 92 05/29/20 10:34 25 89/57 Endotracheal Tube 100 05/29/20 10:30 96 24 97/58 (71) 92 05/29/20 10:00 94 21 99/54 (69) 95 05/29/20 09:34 31 90/54 Endotracheal Tube 100 05/29/20 09:30 90 31 90/54 (66) 88 05/29/20 09:15 27 90/52 Endotracheal Tube 100 05/29/20 09:00 99 31 88/51 (63) 91 05/29/20 08:30 154 32 113/76 (88) 96 Intake and Output 05/29/20 05/30/20 19:00 07:00 Intake Total 729.864 ml 682.273 ml Output Total 350 ml 470 ml Balance 379.864 ml 212.273 ml Intake Free Water 90 ml IV Total 539.864 ml 262.273 ml Tube Feeding 190 ml 330 ml Output Urine Total 350 ml 470 ml # Bowel Movements 1 General Appearance: no acute distress HEENT: normocephalic Respiratory: chest wall non-tender, decreased breath sounds Cardiovascular: normal peripheral pulses, normal rate Abdomen: normal bowel sounds Microbiology Date/Time Source Procedure Growth Status 05/28/20 16:32 Nasopharynx Coronavirus COVID-19 PCR (NATHAN) - Final Complete 05/27/20 22:20 Sputum Gram Stain - Final Resulted 05/27/20 22:20 Sputum Sputum Culture - Preliminary NORMAL UPPER RESPIRATORY BLAYNE AT 24 ... Resulted Laboratory Tests 05/29/20 08:40: Arterial Blood pH 7.344L, Arterial Blood Partial Pressure CO2 46.1H, Arterial Blood Partial Pressure O2 41.6*L, Arterial Blood HCO3 24.5, Arterial Blood Oxygen Saturation 76.9*L, Arterial Blood Base Excess -1.4, Alton Test Positive 05/29/20 20:30: Vancomycin Level Trough 30.4H 05/30/20 03:40: White Blood Count 23.5*H, Red Blood Count 4.08L, Hemoglobin 11.8L, Hematocrit 39.0L, Mean Corpuscular Volume 96, Mean Corpuscular Hemoglobin 29.0, Mean Corpuscular Hemoglobin Concent 30.3L, Red Cell Distribution Width 14.4, Platelet Count 316, Mean Platelet Volume 6.7, Neutrophils (%) (Auto) , Lymphocytes (%) (Auto) , Monocytes (%) (Auto) , Eosinophils (%) (Auto) , Basophils (%) (Auto) , Neutrophils % (Manual) [Pending], Lymphocytes % (Manual) [Pending], Platelet Estimate [Pending], Platelet Morphology [Pending], Sodium Level 136, Potassium Level 4.2, Chloride Level 102, Carbon Dioxide Level 27, Anion Gap 7, Blood Urea Nitrogen 27H, Creatinine 1.3, Estimat Glomerular Filtration Rate > 60, Glucose Level 236H, Calcium Level 8.5, Total Bilirubin 0.4, Aspartate Amino Transf (AST/SGOT) 26, Alanine Aminotransferase (ALT/SGPT) 16, Alkaline Phosphatase 91, Total Protein 7.1, Albumin 1.7L, Globulin 5.4, Albumin/Globulin Ratio 0.3L, Triglycerides Level [Pending] Current Medications Medications (Trade) Dose Ordered Sig/Joan Route PRN Reason Start Time Stop Time Status Last Admin Dose Admin Chlorhexidine Gluconate (Zohreh-Hex 2%) 1 applic DAILY@1999 TOPIC 05/23/20 20:00 08/21/20 19:59 05/29/20 20:11 Dexamethasone Sodium Phosphate (Decadron 10mg/ ml Inj) 6 mg DAILY IV 05/29/20 09:00 06/07/20 09:01 05/29/20 08:28 Dextrose (Dextrose 50%) 25 ml Q30M PRN IV Hypoglycemia 05/23/20 05:15 2/17/21 05:14 Dextrose (Dextrose 50%) 50 ml Q30M PRN IV Hypoglycemia 05/23/20 05:15 08/21/20 05:14 Doxycycline Hyclate 100 mg/ Dextrose 110 ml @ 110 mls/hr Q12HR IV 05/28/20 21:00 06/04/20 20:59 05/29/20 21:25 Enoxaparin Sodium (Lovenox) 80 mg EVERY 12 HOURS SUBQ 05/29/20 21:00 08/27/20 20:59 05/29/20 21:27 Lorazepam (Ativan 2mg/ml 1ml) 1 mg BID PRN IV For Anxiety 05/26/20 10:30 06/02/20 10:29 05/28/20 23:33 Meropenem 1 gm/ Sodium Chloride 100 ml @ 200 mls/hr Q8HR IVPB 05/28/20 22:00 06/02/20 21:59 05/30/20 06:25 Metoprolol Tartrate (Lopressor) 5 mg Q6H PRN IVP HR>130 05/29/20 21:14 08/27/20 21:13 05/29/20 21:27 Norepinephrine Bitartrate 250 ml @ 0 mls/hr Q24H IV 05/28/20 06:45 05/31/20 06:32 05/28/20 06:55 Oxycodone HCl (Roxicodone) 5 mg Q4H PRN GT pain 4-10 05/23/20 22:00 05/30/20 21:59 05/28/20 01:46 Propofol 100 ml @ 0 mls/hr Q12H PRN IV Sedation 05/28/20 15:44 05/30/20 15:43 05/30/20 01:29 Vancomycin HCl (Vanco pharmacy to dose) 1 ea DAILY PRN MISC Per rx protocol 05/26/20 08:00 06/25/20 07:59 Assessment/Plan Assessment/Plan IMPRESSION: 1. Decompensated congestive heart failure. 2. Permanent pacemaker. 3. Right pleural effusion. 4. History of lung cancer. 5. Hypoxic respiratory failure. DISCUSSION: 1. Agree with diuresis; 2. Intubated now; will continue 100% fiO2; PEEP 5; Vt 500; rate 18; check ABg in Am; remains hypoxic 3. COVID-19 testing is negative. 4. I will follow carefully. Kirstie Membreno Omar Syed MD May 30, 2020 08:30
[2020-05-30] MEDS: dexAMETHasone 10mg/ml Inj IV SCH (09:22)
[2020-05-30] MEDS: Doxycycline Hyclate 100 MG in D5W 110 ML IV SCH (09:23)
[2020-05-30] MEDS: Enoxaparin 80mg Inj SUBQ SCH (09:24)
--- NOTE | 2020-05-30 11:36 | Surgery Progress Note ---
Surgery Progress Note Subjective Additional Comments leukocytosis worsening no n/v Objective Last 24 Hour Vital Signs Date Time Temp Pulse Resp B/P (MAP) Pulse Ox O2 Delivery O2 Flow Rate FiO2 05/30/20 11:30 100 24 99/59 (72) 99 05/30/20 11:00 98 29 114/59 (77) 100 05/30/20 11:00 25 114/59 Mechanical Ventilator 100 05/30/20 10:00 26 107/58 Mechanical Ventilator 100 05/30/20 10:00 100 30 107/58 (74) 100 05/30/20 09:30 99 20 111/60 (77) 100 05/30/20 09:00 98 30 105/56 (72) 100 05/30/20 09:00 23 108/61 Mechanical Ventilator 100 05/30/20 08:30 97 27 106/68 (81) 05/30/20 08:00 Endotracheal Tube 05/30/20 08:00 98.4 95 26 98/57 (71) 98 05/30/20 08:00 30 98/57 Mechanical Ventilator 100 05/30/20 08:00 94 05/30/20 08:00 100 05/30/20 07:30 95 36 100/56 (71) 99 05/30/20 07:06 95 18 100 05/30/20 07:00 95 22 100/60 (73) 66 05/30/20 07:00 24 105/60 Mechanical Ventilator 100 05/30/20 06:45 100/60 05/30/20 06:00 25 103/59 Mechanical Ventilator 100 05/30/20 06:00 99.0 97 23 117/60 (79) 97 05/30/20 05:00 26 117/60 Mechanical Ventilator 100 05/30/20 05:00 102 22 112/67 (82) 97 05/30/20 04:00 Endotracheal Tube 05/30/20 04:00 100.3 104 27 122/63 (82) 95 05/30/20 04:00 103 05/30/20 04:00 22 128/66 Mechanical Ventilator 100 05/30/20 04:00 100 05/30/20 03:00 111 28 141/71 (94) 89 05/30/20 03:00 27 120/65 Mechanical Ventilator 100 05/30/20 02:33 110 23 100 05/30/20 02:00 27 109/62 Mechanical Ventilator 100 05/30/20 02:00 116 27 112/60 (77) 96 05/30/20 01:29 26 105/60 Mechanical Ventilator 100 05/30/20 01:00 112 31 136/78 (97) 05/30/20 01:00 30 136/78 Mechanical Ventilator 100 05/30/20 00:00 100 05/30/20 00:00 Endotracheal Tube 05/30/20 00:00 98.4 118 39 124/67 (86) 95 05/30/20 00:00 120 05/30/20 00:00 26 116/68 Mechanical Ventilator 100 05/29/20 23:00 118 34 130/54 (79) 94 05/29/20 23:00 24 130/54 Mechanical Ventilator 100 05/29/20 22:40 133 22 100 05/29/20 22:00 31 114/61 Mechanical Ventilator 100 05/29/20 22:00 106 28 114/61 (78) 93 05/29/20 21:27 134 117/72 05/29/20 21:00 29 123/55 Mechanical Ventilator 100 05/29/20 21:00 134 26 123/55 (77) 93 05/29/20 20:45 131 28 102/66 (78) 96 05/29/20 20:30 132 28 104/62 (76) 96 05/29/20 20:00 136 05/29/20 20:00 134 30 94/62 (73) 92 05/29/20 20:00 27 105/70 Mechanical Ventilator 100 05/29/20 20:00 98.6 130 26 105/70 (82) 83 05/29/20 20:00 Endotracheal Tube 05/29/20 20:00 100 05/29/20 19:00 134 30 94/62 (73) 92 05/29/20 18:34 25 99/75 Endotracheal Tube 100 05/29/20 18:32 144 30 100 05/29/20 18:30 134 25 99/75 (83) 95 05/29/20 18:00 135 27 107/67 (80) 88 05/29/20 17:34 26 107/67 Endotracheal Tube 100 05/29/20 17:00 134 28 108/63 (78) 94 05/29/20 16:34 30 120/65 Endotracheal Tube 100 05/29/20 16:30 127 27 120/65 (83) 92 05/29/20 16:21 132 05/29/20 16:00 100 05/29/20 16:00 Endotracheal Tube 05/29/20 16:00 98.3 130 28 96/68 (77) 94 05/29/20 15:34 29 115/55 Endotracheal Tube 100 05/29/20 15:30 121 33 126/73 (90) 93 05/29/20 15:07 119 27 100 05/29/20 15:00 117 30 111/61 (78) 94 05/29/20 14:34 30 122/58 Endotracheal Tube 100 05/29/20 14:30 117 30 122/58 (79) 93 05/29/20 14:00 111 34 126/67 (86) 94 05/29/20 13:34 31 99/69 Endotracheal Tube 100 05/29/20 13:30 110 31 99/69 (79) 90 05/29/20 13:00 107 22 125/58 (80) 96 05/29/20 12:34 22 108/55 Endotracheal Tube 100 05/29/20 12:00 100 05/29/20 12:00 Endotracheal Tube 05/29/20 12:00 98.5 100 21 93/63 (73) 92 05/29/20 11:53 108 I&O Intake and Output 05/29/20 05/30/20 19:00 07:00 Intake Total 729.864 ml 682.273 ml Output Total 350 ml 470 ml Balance 379.864 ml 212.273 ml Intake Free Water 90 ml IV Total 539.864 ml 262.273 ml Tube Feeding 190 ml 330 ml Output Urine Total 350 ml 470 ml # Bowel Movements 1 Dressing: saturated Cardiovascular: RSR Respiratory: decreased breath sounds Abdomen: soft, non-tender, present bowel sounds Extremities: no tenderness, no cyanosis Laboratory Tests Test 05/29/20 20:30 05/30/20 03:40 Vancomycin Level Trough 30.4 ug/mL (5.0-12.0) H White Blood Count 23.5 K/UL (4.8-10.8) *H Red Blood Count 4.08 M/UL (4.70-6.10) L Hemoglobin 11.8 G/DL (14.2-18.0) L Hematocrit 39.0 % (42.0-52.0) L Mean Corpuscular Volume 96 FL (80-99) Mean Corpuscular Hemoglobin 29.0 PG (27.0-31.0) Mean Corpuscular Hemoglobin Concent 30.3 G/DL (32.0-36.0) L Red Cell Distribution Width 14.4 % (11.6-14.8) Platelet Count 316 K/UL (150-450) Mean Platelet Volume 6.7 FL (6.5-10.1) Neutrophils (%) (Auto) % (45.0-75.0) Lymphocytes (%) (Auto) % (20.0-45.0) Monocytes (%) (Auto) % (1.0-10.0) Eosinophils (%) (Auto) % (0.0-3.0) Basophils (%) (Auto) % (0.0-2.0) Differential Total Cells Counted 100 Neutrophils % (Manual) 80 % (45-75) H Lymphocytes % (Manual) 7 % (20-45) L Monocytes % (Manual) 13 % (1-10) H Eosinophils % (Manual) 0 % (0-3) Basophils % (Manual) 0 % (0-2) Band Neutrophils 0 % (0-8) Platelet Estimate Adequate Platelet Morphology Normal Hypochromasia 1+ Sodium Level 136 MMOL/L (136-145) Potassium Level 4.2 MMOL/L (3.5-5.1) Chloride Level 102 MMOL/L (98-107) Carbon Dioxide Level 27 MMOL/L (21-32) Anion Gap 7 mmol/L (5-15) Blood Urea Nitrogen 27 mg/dL (7-18) H Creatinine 1.3 MG/DL (0.55-1.30) Estimat Glomerular Filtration Rate > 60 mL/min (>60) Glucose Level 236 MG/DL (74-106) H Calcium Level 8.5 MG/DL (8.5-10.1) Total Bilirubin 0.4 MG/DL (0.2-1.0) Aspartate Amino Transf (AST/SGOT) 26 U/L (15-37) Alanine Aminotransferase (ALT/SGPT) 16 U/L (12-78) Alkaline Phosphatase 91 U/L (46-116) Total Protein 7.1 G/DL (6.4-8.2) Albumin 1.7 G/DL (3.4-5.0) L Globulin 5.4 g/dL Albumin/Globulin Ratio 0.3 (1.0-2.7) L Triglycerides Level 172 MG/DL (30-150) H Plan Problems: (1) Shortness of breath Assessment & Plan: worsening intubated now on vent wean vent as tolerated diuresis (2) Lung cancer (3) A-fib (4) CHF exacerbation (5) G tube feedings (6) Cellulitis of scrotum Assessment & Plan: Patient identified admission to have scrotal cellulitis with fluid-filled large scrotum in the posterior aspect of the perineum there is a opening proximally 1 cm raised 1 cm with cellulitis and induration around it no fluctuance no abscess. Wound washed. Swab Betadine. Dressings applied. IV antibiotics. Will monitor with physical examination to ensure not worsening. May form phlegmon into abscess requiring I&D but currently no fluid collection requiring I&D. Will monitor to ensure healing. Thank you for letting present patient's care will follow with recommendations abd exam improved scrotum stable requiring bipap cxr noted leukocytosis cont abx fluids respiratory support DAILY ESTIMATED NEEDS: Needs based on Pulmonary, Cancer, bedbound 72.6kg 23-28 kcals/kg 2629-3329 total kcals 1-1.5 g protein/kg 73-109 g total protein Fluid per MD, on lasix NUTRITION DIAGNOSIS: Swallowing difficulty r/t dysphagia as evidenced by pt is PEG dep. CURRENT TF: (NPO) ENTERAL NUTRITION RECOMMENDATIONS: As medically able, rec Glucerna 1.5 goal of 50ml/hr x24 hrs to provide 1200ml, 1800 kcal, 99g pro, 911ml free H2O - As medically able, rec carb control (elev BG 127-165), low free fluid formula(elev BNP, on lasix, edematous). - Start Glucerna 1.5 @20ml/hr for 6 hrs, advance as tolerated 10ml/hr q4-6 hrs to goal. - Flush per MD/ pt is on lasix - HOB over 30 degrees ADDITIONAL RECOMMENDATIONS: 1) TF recs above when medically appropriate 2) Rec bed side BG checks; am labs w/ elev BG (127-165). 3) Monitor lytes, need or renal formula (elev phos, elev Mg) 4) W/ lasix, add B-complex 1 daily 5) Maintain calibrated bed scale wts (7) Hypoxia Roman Pickens May 30, 2020 11:36
--- NOTE | 2020-05-30 12:48 | General Progress Note ---
Subjective Date patient seen: May 30, 2020 ROS Limited/Unobtainable: Yes - intubated and sedated Allergies: Coded Allergies: No Known Allergies (Unverified , 05/23/20) Subjective Patient remains intubated this morning. Weaning FiO2 to 70%. Continuing tube feeds. Vital signs stable. Sedated on propofol. Objective Last 24 Hour Vital Signs Date Time Temp Pulse Resp B/P (MAP) Pulse Ox O2 Delivery O2 Flow Rate FiO2 05/30/20 11:30 100 24 99/59 (72) 99 05/30/20 11:11 100 19 70 05/30/20 11:00 98 29 114/59 (77) 100 05/30/20 11:00 25 114/59 Mechanical Ventilator 100 05/30/20 10:00 26 107/58 Mechanical Ventilator 100 05/30/20 10:00 100 30 107/58 (74) 100 05/30/20 09:30 99 20 111/60 (77) 100 05/30/20 09:00 98 30 105/56 (72) 100 05/30/20 09:00 23 108/61 Mechanical Ventilator 100 05/30/20 08:30 97 27 106/68 (81) 05/30/20 08:00 Endotracheal Tube 05/30/20 08:00 98.4 95 26 98/57 (71) 98 05/30/20 08:00 30 98/57 Mechanical Ventilator 100 05/30/20 08:00 94 05/30/20 08:00 100 05/30/20 07:30 95 36 100/56 (71) 99 05/30/20 07:06 95 18 100 05/30/20 07:00 95 22 100/60 (73) 66 05/30/20 07:00 24 105/60 Mechanical Ventilator 100 05/30/20 06:45 100/60 05/30/20 06:00 25 103/59 Mechanical Ventilator 100 05/30/20 06:00 99.0 97 23 117/60 (79) 97 05/30/20 05:00 26 117/60 Mechanical Ventilator 100 05/30/20 05:00 102 22 112/67 (82) 97 05/30/20 04:00 Endotracheal Tube 05/30/20 04:00 100.3 104 27 122/63 (82) 95 05/30/20 04:00 103 05/30/20 04:00 22 128/66 Mechanical Ventilator 100 05/30/20 04:00 100 05/30/20 03:00 111 28 141/71 (94) 89 05/30/20 03:00 27 120/65 Mechanical Ventilator 100 05/30/20 02:33 110 23 100 05/30/20 02:00 27 109/62 Mechanical Ventilator 100 05/30/20 02:00 116 27 112/60 (77) 96 05/30/20 01:29 26 105/60 Mechanical Ventilator 100 05/30/20 01:00 112 31 136/78 (97) 05/30/20 01:00 30 136/78 Mechanical Ventilator 100 05/30/20 00:00 100 05/30/20 00:00 Endotracheal Tube 05/30/20 00:00 98.4 118 39 124/67 (86) 95 05/30/20 00:00 120 05/30/20 00:00 26 116/68 Mechanical Ventilator 100 05/29/20 23:00 118 34 130/54 (79) 94 05/29/20 23:00 24 130/54 Mechanical Ventilator 100 05/29/20 22:40 133 22 100 05/29/20 22:00 31 114/61 Mechanical Ventilator 100 05/29/20 22:00 106 28 114/61 (78) 93 05/29/20 21:27 134 117/72 05/29/20 21:00 29 123/55 Mechanical Ventilator 100 05/29/20 21:00 134 26 123/55 (77) 93 05/29/20 20:45 131 28 102/66 (78) 96 05/29/20 20:30 132 28 104/62 (76) 96 05/29/20 20:00 136 05/29/20 20:00 134 30 94/62 (73) 92 05/29/20 20:00 27 105/70 Mechanical Ventilator 100 05/29/20 20:00 98.6 130 26 105/70 (82) 83 05/29/20 20:00 Endotracheal Tube 05/29/20 20:00 100 05/29/20 19:00 134 30 94/62 (73) 92 05/29/20 18:34 25 99/75 Endotracheal Tube 100 05/29/20 18:32 144 30 100 05/29/20 18:30 134 25 99/75 (83) 95 11/25/20 18:00 135 27 107/67 (80) 88 05/29/20 17:34 26 107/67 Endotracheal Tube 100 05/29/20 17:00 134 28 108/63 (78) 94 05/29/20 16:34 30 120/65 Endotracheal Tube 100 05/29/20 16:30 127 27 120/65 (83) 92 05/29/20 16:21 132 05/29/20 16:00 100 05/29/20 16:00 Endotracheal Tube 05/29/20 16:00 98.3 130 28 96/68 (77) 94 05/29/20 15:34 29 115/55 Endotracheal Tube 100 05/29/20 15:30 121 33 126/73 (90) 93 05/29/20 15:07 119 27 100 05/29/20 15:00 117 30 111/61 (78) 94 05/29/20 14:34 30 122/58 Endotracheal Tube 100 05/29/20 14:30 117 30 122/58 (79) 93 05/29/20 14:00 111 34 126/67 (86) 94 05/29/20 13:34 31 99/69 Endotracheal Tube 100 05/29/20 13:30 110 31 99/69 (79) 90 05/29/20 13:00 107 22 125/58 (80) 96 Intake and Output 05/29/20 05/30/20 19:00 07:00 Intake Total 729.864 ml 682.273 ml Output Total 350 ml 470 ml Balance 379.864 ml 212.273 ml Intake Free Water 90 ml IV Total 539.864 ml 262.273 ml Tube Feeding 190 ml 330 ml Output Urine Total 350 ml 470 ml # Bowel Movements 1 Laboratory Tests 05/29/20 20:30: Vancomycin Level Trough 30.4H 05/30/20 03:40: White Blood Count 23.5*H, Red Blood Count 4.08L, Hemoglobin 11.8L, Hematocrit 39.0L, Mean Corpuscular Volume 96, Mean Corpuscular Hemoglobin 29.0, Mean Corpuscular Hemoglobin Concent 30.3L, Red Cell Distribution Width 14.4, Platelet Count 316, Mean Platelet Volume 6.7, Neutrophils (%) (Auto) , Lymphocytes (%) (Auto) , Monocytes (%) (Auto) , Eosinophils (%) (Auto) , Basophils (%) (Auto) , Differential Total Cells Counted 100, Neutrophils % (Manual) 80H, Lymphocytes % (Manual) 7L, Monocytes % (Manual) 13H, Eosinophils % (Manual) 0, Basophils % (Manual) 0, Band Neutrophils 0, Platelet Estimate Adequate, Platelet Morphology Normal, Hypochromasia 1+, Sodium Level 136, Potassium Level 4.2, Chloride Level 102, Carbon Dioxide Level 27, Anion Gap 7, Blood Urea Nitrogen 27H, Creatinine 1.3, Estimat Glomerular Filtration Rate > 60, Glucose Level 236H, Calcium Level 8.5, Total Bilirubin 0.4, Aspartate Amino Transf (AST/SGOT) 26, Alanine Aminotransferase (ALT/SGPT) 16, Alkaline Phosphatase 91, Total Protein 7.1, Albumin 1.7L, Globulin 5.4, Albumin/Globulin Ratio 0.3L, Triglycerides Level 172H Height (Feet): 5 Height (Inches): 10.00 Weight (Pounds): 168 Objective General Appearance: intubated, sedated on propofol EENT: intubated, tube secured in place Neck: normal alignment, supple Cardiovascular: regularly irregular, no JVD, tachycardia Respiratory/Chest: ventilator sounds Abdomen: non tender, soft, other - G-tube Genitourinary/Rectal: other - [place] Extremities: normal range of motion Edema: no edema noted Arm (L), no edema noted Arm (R), no edema noted Leg (L), no edema noted Leg (R), no edema noted Pedal (L), no edema noted Pedal (R), no edema noted Generalized Neurologic: unable to assess Skin: normal pigmentation, warm/dry Assessment/Plan Status: deteriorating Assessment/Plan: A: #Acute hypoxic respiratory failure status post BiPAP - slight improvement, now on 70% FiO2 #Acute encephalopathy likely secondary to hypoxia #Atrial fibrillation with rapid ventricular response on blood thinner 2/2 CAP versus PE #Acute on ?chronic decompensated heart failure 2/2 tachyarrhythmia induced cardiomyopathy versus PE #Community-acquired pneumonia #History of lung cancer #Essential hypertension #G-tube dependent P: - Still intubated on ventilator concern for PE, so continuing anticoagulation Systolic blood pressure stable, no indication for pressor support at this time Keep MAP greater than 65 Started on the amiodarone per cardiology, still significantly tachycardic Preliminary echo report showing normal EF, RSVP 25, and undetermined diastolic Chest x-ray today shows moderate pulmonary congestion, cardiomegaly Continue Vanco, cefepime, Flagyl for possible right lower lobe pneumonia - COVID-19 negative Follow-up repeat blood cultures (negative so far), urinalysis given increased leukocytosis and inflammatory markers. No diarrhea Continue Lasix 40 mg IV twice daily Continue metoprolol 25 mg twice daily continue home Eliquis 5 mg twice daily Start tube feeds Nutritional consult Consult Dr. Akers, pulmonology, recs appreciated Consult Dr. Zamudio, cardiology, recs appreciated CM CODE STATUS: Full GI: Home omeprazole Diet: G-tube feeds DVT prophylaxis: Lovenox Dispo: Pending stabilization of respiratory failure Time spent on this encounter was 43 minutes which included 32 minutes of counseling and care coordination and critical care time. Review of labs, chest imaging, need for pressor support, mechanical ventilation support reviewed by me and along with discussion with pulmonology and cardiology. I discussed with the nurse at bedside. Time of note may not reflect time patient was seen. Alli Levy M.D. May 30, 2020 12:48
[2020-05-30] MEDS ORDERED: NS 275ml ONE ×3 (13:29→14:24)
[2020-05-30] MEDS ORDERED: Tubing IV Secondary IV ONE ×2 (14:18→14:24)
[2020-05-30] MEDS ORDERED: NS 500ML ONE (14:24)
--- NOTE | 2020-05-30 14:50 | Emergency Room Report ---
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 I feel this is a highly complex case requiring extensive working including EKG/Rhythm strip, Xray/CT/US, Blood/urine lab work, repeat exams while in ED, and administration of strong opiates/narcotics for pain control, admission to hospital or close patient follow up. Total time: 30 min bedside evaluation and treatment excludes procedures (EKG). Reason for critical care: respiratory arrest Possible complications: hypotension, hypertension, [place], shock, arrhythmias, metabolic acidosis, end organ damage, respiratory failure. Interventions: Compressions, ACLS meds, reassessment of vitals, Course: Patient in respiratory distress. Currently on pressors. PEA. After multiple rounds of chest compressions and medications patient remains in PEA. Prognosis is poor. Resuscitative efforts terminated. Patient expires Consultations: nursing staff, EMS, family Performed by: Dr Tracy Tolerated well condition = j. because of unstable vital signs this patient had a condition that could potentially threaten life or limb. I feel this is a critical patient who required my full attention while patient was considered critical. Total C ritical Care Time excluding procedures was greater than 30 minutes CPR/Code Blue CPR/Code Blue Narrative see code blue sheet for full narrative Medical Decision Making Diagnostic Impression: Primary Impression: CHF exacerbation Additional Impressions: G tube feedings Shortness of breath Hypoxia Lung cancer A-fib ER Course I was called at his CODE BLUE in the ICU. Patient on ventilator. On pressors. Became hypoxic and lost pulse. Rhythm PEA. After multiple rounds of medication and chest compressions patient remains in PEA. Patient already on pressors. Prognosis is poor. Resuscitative efforts terminated. Patient expires. admitting team informed Last Vital Signs Date Time Temp Pulse Resp B/P (MAP) Pulse Ox O2 Delivery O2 Flow Rate FiO2 05/30/20 13:00 100 05/30/20 11:30 100 24 99/59 (72) 99 05/30/20 11:00 Mechanical Ventilator 05/30/20 08:00 98.4 05/29/20 01:15 100.0 Status: improved Disposition: ADMITTED INPATIENT Condition: Referrals: NON PHYSICIAN (PCP) Stephen Tracy MD May 30, 2020 14:49
--- NOTE | 2020-05-30 15:47 | Discharge Summary ---
Discharge Summary Hospital Course Date of Admission May 23, 2020 at 03:42 Date of Discharge 05/30/2020 Admitting Diagnosis HYPOXIA HPI Dominguez Benitez is a 69 year old male who was admitted on May 23, 2020 at 03:42 for Hypoxia Mr. Ortega is a 69-year-old male with past medical history of lung cancer, A. fib, G-tube dependent, hypertension who was brought in by ambulance for respiratory distress. Entire history taken from chart review and discussion with nurses as patient is currently on BiPAP unable to answer any questions. Patient was found at [facility] where he currently resides in to be hypoxic at 70%. He was placed on 15 L nonrebreather mask which improved his hypoxia and brought to the ED for further evaluation. Patient currently on BiPAP and arousable. However unable to answer any questions. No other further history obtainable at this time. Consultations Pulmonary Dr. Akers ID Dr. Dyson Cardiology Dr. Zamudio Surgery Dr. Pickens Hospital Course Patient admitted for possible sepsis, decompensated heart failure, encephalopathy, atrial fibrillation with RVR. Patient was placed in ICU for worsening hypoxic respiratory failure and eventually intubated. Placed on amiodarone for A Fib. Diuresis with Lasix was attempted. Anticoagulation for presumed PE was started. He went into cardiac arrest and after shivam anton was called and resuscitation was attempted, patient was pronounced . Discharge Condition Upon Discharge: other - Discharge Vital Signs Last Vital Signs Date Time Temp Pulse Resp B/P (MAP) Pulse Ox O2 Delivery O2 Flow Rate FiO2 05/30/20 13:00 100 05/30/20 13:00 60 19 84/53 (63) 05/30/20 12:44 31 05/30/20 12:00 Endotracheal Tube 05/30/20 12:00 98.6 05/29/20 01:15 100.0 Discharge Diagnoses: (1) Cardiac arrest (2) Acute hypoxemic respiratory failure (3) CHF exacerbation Alli Levy M.D. May 30, 2020 15:47
== END 2020-05-30 13:30 | disposition expired | DRG 208 ==
LOC: EDBD 02:51 → EMR 03:36 → ICU 03:42 → EDBEDREQ 03:56
DX: J96.01 Acute respiratory failure with hypoxia (principal); J18.9 Pneumonia, unspecified organism; I50.33 Acute on chronic diastolic (congestive) heart failure; C34.90 Malignant neoplasm of unspecified part of unspecified bronchus or lung; G93.1 Anoxic brain damage, not elsewhere classified; I11.0 Hypertensive heart disease with heart failure; Z95.0 Presence of cardiac pacemaker; N49.2 Inflammatory disorders of scrotum; R00.0 Tachycardia, unspecified; N40.0 Benign prostatic hyperplasia without lower urinary tract symptoms; Z20.828 Contact with and (suspected) exposure to other viral communicable diseases; R13.10 Dysphagia, unspecified; D64.9 Anemia, unspecified; J96.02 Acute respiratory failure with hypercapnia; I95.9 Hypotension, unspecified; R00.1 Bradycardia, unspecified
CPT/HCPCS: 36415; 71045; 80048; 80053; 80076; 80150; 80202; 81003; 82164; 82803; 82962; 83605; 83690; 83735; 83880; 84100; 84478; 84484; 85007; 85025; 85610; 85730; 86140; 86738; 87040; 87070; 87081; 87086; 87205; 92950; 93005; 93306; 93970; 94002; 94003; 94660; 94664; 96365; 96375; 99291; J0171; J3490; J7030; J8499; U0002